=== PATIENT | female | born 1950 | race Caucasian/White ===

== ENCOUNTER 2016-10-02 09:52 | Inpatient (IN) ==
[2016-10-02] MEDS ORDERED: BENADRYL PO PRN (12:17)
[2016-10-02] MEDS ORDERED: ZOFRAN IV PRN (12:19)
[2016-10-02] MEDS ORDERED: NS 2,000 ML ONE (12:40)
[2016-10-02 12:42] LABS: INR 1.05; PROTIME 11.1 Seconds (9.2-11.7)
[2016-10-02 12:44] LABS: HEMATOCRIT 33.7 % (37.0-47.0); MCH 34.6 PG (27-31); MCHC 32.6 g/dL (33-37); MPV 10.6 FL (7.4-10.4); RBC 3.18 XMIL (4.2-5.4)
[2016-10-02] MEDS ORDERED: HEPARIN IV PRN (12:45)
[2016-10-02] MEDS ORDERED: TIGHT: 0.2 ML/HR MISC PRN (12:45)
[2016-10-02] MEDS ORDERED: NS 2,000 ML MISC PRN (12:45)
[2016-10-02 12:47] LABS: HEMOGLOBIN A1C 4.4 % (4.8-6.0)
[2016-10-02 13:20] LABS: CALCIUM 10.1 mg/dL (8.8-10.2); MAGNESIUM 1.8 mg/dL (1.5-2.7); POTASSIUM 3.5 mmol/L (3.5-5.1); TOTAL BILIRUBIN 0.38 mg/dL (0.20-1.00); TOTAL PROTEIN 7.1 g/dL (6.3-8.3)
--- NOTE | 2016-10-02 13:27 | Diag Imaging Result Doc PS360 ---
EXAM: CHEST-PORTABLE HISTORY: dyspnea COMPARISON: 06/15/2016 FINDINGS: There is cardiomegaly similar to the previous exam. There is bilateral lower lung airspace disease with apparent pleural effusions. There is prominence of central vascular markings. There is no pneumothorax identified. There is apparent skin fold artifact over the mid and lower right lung. IMPRESSION: Findings which are suggestive of pulmonary edema/congestive heart failure. Electronically signed by Phong Mcrae 10/02/2016 1:25 PM
[2016-10-02] MEDS ORDERED: SODIUM CHLORIDE 0.9% INJ SCH (14:30)
[2016-10-02] MEDS: REGLAN PO SCH ×2 (14:41→17:26)
[2016-10-02] MEDS: LASIX PO SCH ×2 (14:41→17:16)
[2016-10-02] MEDS: APRESOLINE PO SCH ×2 (14:41→17:19)
[2016-10-02 15:08] LABS: FREE T4 1.17 ng/dL (0.93-1.70)
--- NOTE | 2016-10-02 15:26 | HISTORY AND PHYSICAL ---
PRIMARY CARE PHYSICIAN: Dr. Henderson. CHECKOUT OPERATOR: Dr. Felton. CHIEF COMPLAINT: Weakness. HISTORY OF PRESENT ILLNESS: Mrs. Meade is a 66-year-old female, who has ESRD on hemodialysis followed by Dr. Felton. She also has a history of severe coronary disease and congestive heart failure. She has been having worsening asthenia over the past 6 months. She states that anytime she tries to stand or walk she gets weak. She also report shortness of breath. Shortness of breath is with any type of exertion. She has lower extremity edema and orthopnea. She denies however any chest pain. She has no fever or chills. She is continuing to report multiple episodes of diarrhea a day with occasional vomiting. She has actually had a recent workup of her vomiting and diarrhea by Dr. Bland. She had upper and lower endoscopy which showed nonbleeding cecal AVMs, colonic polyps, extensive diverticulosis, rectal polyps, grade 2 internal hemorrhoids and large external hemorrhoids. Her EGD showed Schatzki's ring, hiatal hernia and multiple gastric AVMs. She has seen Dr. Felton this week and he felt that she needed to come to the hospital for evaluation and possible long-term placement as she lives alone and is having a difficult time caring for herself. She is currently in dialysis resting comfortably without distress noted. She is now going to be admitted for further treatment and evaluation. Addendum: The patient returned from dialysis and had a large maroon colored bowel movement. She is being transferred to the ICU. PAST MEDICAL HISTORY: 1. ESRD and hemodialysis on Thursday, , Thursday. Followed by Dr. Felton. 2. Hypertension. 3. Borderline diabetes mellitus 4. Congestive heart failure with last known EF of 60% in 2015. 5. Severe coronary artery disease. 6. Gastric AVMs 7. Diverticulosis 8. Cecal AVMs 9. Internal and external hemorrhoids 10.Hiatal hernia 11.Multiple colonic polyps 12.Severe protein calorie malnutrition PAST SURGICAL HISTORY: Multiple coronary stents, hernia repair, bilateral tubal ligation, cholecystectomy, appendectomy, polypectomy. SOCIAL HISTORY: Patient lives alone. Her brother does bring her food on occasion. She denies tobacco, alcohol or drug use. FAMILY HISTORY: Noncontributory. REVIEW OF SYSTEMS: Fourteen point review of systems obtained and found to be negative with the exception of the HPI. HOME MEDICATIONS: Reglan 2.5 mg p.o. t.i.d. Peppermint oil 90 mg p.o. t.i.d. Tylenol 1 g every 8 hours as needed. Aspirin 81 mg daily. Plavix 75 mg a.m. Cymbalta 30 mg p.o. daily. Benadryl 25 mg every 4 hours as needed for itching. Lasix 40 mg t.i.d. Apresoline 50 mg t.i.d. Toprol-XL 50 mg p.o. b.i.d. Prilosec 40 mg b.i.d. Multivitamin 1 daily. Zoloft 50 mg at bedtime. Zanaflex 4 mg bedtime. Desyrel 100 mg p.o. at bedtime. ALLERGIES: To adhesives, scopolamine, opioids, methadone and related, oxycodone. PHYSICAL EXAMINATION: VITAL SIGNS: Blood pressure is 156/73, heart rate is 77, respiratory rate is 20 , O2 saturation 90% on 2 L. Temperature is 97.8 degrees. GENERAL: This is a frail 66-year-old female, lying in the hospital bed in no acute distress. NEUROLOGIC: The patient is awake, she is somewhat sleepy but does awaken easily to verbal stimulus. She follows commands without focal deficits. HEENT: Head is atraumatic and normocephalic. Her pupils are equal, round, and reactive to light. Oral mucosa is moist. Trachea is midline. No JVD or carotid bruits. Chest diminished at the bases with bibasilar crackles. CV: Tachy but regular. S1, S2 is noted. 2-3/6 systolic ejection murmur noted. GI: Epigastric tenderness to palpation. Overall belly is soft and nondistended. Bowel sounds are positive. EXTREMITIES: Without edema, clubbing or cyanosis. Pulses are diminished but palpable bilaterally. DIAGNOSTIC DATA: Chest x-ray shows findings suggestive of pulmonary edema and congestive heart failure. Lab work WBC 9, hemoglobin 11, hematocrit 33.7, platelet count 193, 000. PT 11.1, INR 1.05. Sodium 129, potassium 3.5, chloride 90. CO2 is 23, anion gap 16. BUN 33 , creatinine 2.9. Glucose 92. A1c 4.4. Calcium 10.1, magnesium 1.8. Bilirubin 0.38. AST 24, ALT 17, alkaline phosphatase 176. ProBNP 55523. Albumin 4. ASSESSMENT/PLAN: 1. GI bleed. Will make the patient NPO and start her on a protonix drip. Transfer to the ICU. Will consult GI. A stat hemoglobin and hematocrit has been ordered. Will also start an octreotide drip as recommended by . 2. Acute on chronic heart failure exacerbation: We will check an echocardiogram and continue to trend her enzymes. We will continue home medications. We will make sure to optimize her cardiac medications, follow strict I's and O's and daily weights. Volume management per Dr. Felton via dialysis. 3. ESRD on hemodialysis: Orders per Dr. Felton. 4. Diarrhea and abdominal pain: Dr. Bland has been consulted. Stool studies have been ordered and a CT of the abdomen and pelvis is pending. 5. Macrocytic anemia: Check iron studies. We will treat accordingly. 6. Hypertension: Chronic and stable, continue home medications. 7. Coronary disease: We will check her lipid panel, hemoglobin A1c and make sure her cardiac medications are optimized. We will follow telemetry and rule out myocardial infarction with cardiac enzymes. 8.Failure to thrive. Will consult PT once the patient is medically stable. 9. DVT prophylaxis. SCDs Dictated by KULDEEP Perdue for Cee Richter MD cc: KULDEEP Perdue MD The patient was seen and examined by me. I agree with the assessment and plan as dictated. [facility]
[2016-10-02] MEDS: DUONEB (A & A) INH SCH ×2 (16:05→21:20)
--- NOTE | 2016-10-02 16:21 | CONSULTATION ---
DATE OF CONSULTATION: 10/02/2016 REASON FOR ADMISSION: Severe weakness with chronic diarrheal stools. REASON FOR CONSULT: Assistance with end-stage renal disease and medical management. CONSULTING PHYSICIAN: Cee Richter MD HISTORY OF PRESENT ILLNESS: Ms. Meade is a 66-year-old white female, who is known to our outpatient services for hemodialysis on Thursday, , Thursday. Patient has had a history of chronic diarrheal stools for the past 3-4 months, with GI intervention per Dr. Bland. Subsequently, in the last couple weak, she thought that she was doing much better. She does report recently she has continuing multiple episodes of diarrhea daily. She does have nausea that is chronic and occasional vomiting. She has had an upper and lower GI workup which showed nonbleeding cecal AVMs and colonic polyps, with diverticulosis and rectal polyps. She has Grade II internal hemorrhoids and large external hemorrhoids. Her EGD did indicate Schatzki's ring, hiatal hernia, and multiple gastric AVMs. She states that she was too ill to go to her dialysis treatment today. She presented to [facility] Emergency Department for severe weakness. Subsequently, the patient does indicate failure to thrive. She has had much weight loss in the last 3-4 months. She states that she is unable to take care of herself. She has been admitted for further evaluation. She does deny chest pain. No increased work of breathing. She has multiple stages of bruising. She states that she does not necessarily fall , but she falls against things due to her weakness. Denies fever or chills. PAST MEDICAL HISTORY: End-stage renal disease with hemodialysis on Thursday, , Thursday at the [facility], hypertension, borderline diabetes, congestive heart failure with the last ejection fraction of 60% in 2014. She has coronary artery disease, gastric AVMs with gastritis, hemorrhoids, internal and external, along with colonic polyps and diverticulosis. She has anemia of chronic disease and osteodystrophy of chronic disease. PAST SURGICAL HISTORY: Multiple coronary artery stents, hernia repair, bilateral tubal ligation, cholecystectomy, appendectomy, EGD, and colonoscopies, most recently in July,. SOCIAL HISTORY: She does live alone. She has a brother who will bring her food on occasion. She denies any tobacco, alcohol, or illicit drug use. FAMILY HISTORY: Noncontributory. ALLERGIES: Listed as adhesives, scopolamine, opioids, methadone, and related medications, along with oxycodone home. HOME MEDICATIONS: Listed as Reglan, peppermint, Tylenol, aspirin, Plavix, Cymbalta, Benadryl, Lasix, Apresoline, Toprol XL, Prilosec, multivitamin, Zoloft, Zanaflex, and Desyrel. Patient also is on Rocaltrol, Aranesp, Ferrlecit, Protonix, and IV iron as indicated and as patient has tolerated at the outpatient clinic. REVIEW OF SYSTEMS: Times 10 with pertinent positives listed above in the HPI. PHYSICAL EXAMINATION: Vital Signs: Her most recent vital signs are temperature 97.8 degrees, blood pressure 156/73, heart rate 77, respirations are 20. She is on 2 L nasal cannula. Last recorded saturation is 90%. She has had 120 in, she has had 100 out, along with 2 stools. General: This is a 66-year-old, frail white female, who appears chronically ill. She is in no acute distress. Skin: Warm and dry. HEENT: Normocephalic, atraumatic. Conjunctivae pale. She has MICKY. Mucous membranes are dry. Neck: Supple. Trachea midline. No JVD evident. Cardiovascular: She has got a regular rate and rhythm. She has a systolic murmur noted. No gallop. Lungs: She does exhibit some inspiratory and expiratory wheeze, left greater than right. She is on room air. Equal excursion. Abdomen: Soft, nontender. Positive bowel sounds. Genitourinary: Minimal void with dialysis assist. None inspected. Extremities : Without edema. No clubbing or cyanosis. Integumentary: The patient has multiple abrasions and bruises to her upper extremities bilaterally. Her right arm is swollen to the forearm. Otherwise, no rashes or lesions evident. She does have some bruising to the lower extremities. LABS: Sodium 129, potassium 3.5, chloride 90, CO2 23, BUN 33, creatinine 2.9, glucose 92. Anion gap 16, calcium 10.1, magnesium 1.8. Albumin of 4. She has a free T4 of 1.17. White count 9, hemoglobin 11, hematocrit 33.7, with a platelet count of 193,000. She has a ferritin of 1439. Her prothrombin time is 11.1 with an INR of 1.05. Chest x-ray on admission indicates pulmonary edema with congestive heart failure. ASSESSMENT AND PLAN: 1. End-stage renal disease. This is patient's routine dialysis day. We will plan for dialysis. We will place her on a 2K bath. She is to dialyze for 3.5 hours. We will attempt to pull her to her dry weight. 2. Acute on chronic heart failure with fluid volume overload. Again, we will plan for dialysis with assistance with fluid volume. 3. Electrolytes and acid-base balance. 4. Patient has mild hypokalemia with correction on dialysis. 5. Patient has macrocytic anemia. No intervention at this time. 6. Severe weakness. Patient presents with severe weakness with recent falls. Unable to care for herself, indicating failure to thrive. It is noted that physical therapy and delinquency prevention social worker has been consulted. I would to thank you for allowing us to follow with this patient. Seen, data reviewed, discussed with Hiren Fitch on 10/02/16. I agree with the above assessment and plan of care. rg Dictated by KULDEEP Saul for Nash Felton MD cc: KULDEEP Saul MD [facility]
--- NOTE | 2016-10-02 17:04 | EKG Report ---
Test Performed on : 10/02/2016 4:44:52 PM Test Reason : admission Blood Pressure : / mmHG Vent. Rate : 077 BPM Atrial Rate : 077 BPM P-R Int : 166 ms QRS Dur : 104 ms QT Int : 432 ms P-R-T Axes : 049 073 -14 degrees QTc Int : 488 ms Sinus rhythm. with marked sinus arrhythmia. Left ventricular hypertrophy with repolarization abnormality Abnormal ECG When compared with ECG of 15-JUN-2016 08:11, No significant change was found BEST OF SEVERAL ATTEMPTS Confirmed by Franklin Nunez MD ([id number]) on 10/03/2016 3:29:49 PM
[2016-10-02] MEDS ORDERED: PROTONIX IV SCH (19:00)
[2016-10-02 19:07] LABS: HEMATOCRIT 33.3 % (37.0-47.0); HEMOGLOBIN 10.8 g/dL (12.0-16.0)
[2016-10-02] MEDS: SANDOSTATIN 500 MICROGM in D5W 100 ML IV SCH (20:46)
[2016-10-02] MEDS: ZOLOFT PO SCH (20:46)
[2016-10-02] MEDS: ZANAFLEX PO SCH (20:46)
[2016-10-02] MEDS: PROTONIX 80 MG in NS 80 ML IV SCH (20:46)
[2016-10-02] MEDS: DESYREL PO SCH (20:46)
[2016-10-02] MEDS: TOPROL XL PO SCH (20:47)
[2016-10-02] MEDS: TYLENOL PO PRN (20:55)
[2016-10-02] MEDS ORDERED: HEPARIN SUBQ SCH (21:00)
[2016-10-02] MEDS ORDERED: PRILOSEC PO SCH (21:00)
[2016-10-03] MEDS: DUONEB (A & A) INH SCH ×4 (03:30→22:38)
[2016-10-03 04:39] LABS: ALLEN TEST YES; BE 5.8 mmoll (-3.0-3.0); BLOOD TYPE ARTERIAL; DRAW SITE L RADIAL; METHB 0.8 % (0.0-1.5); MODALITY VENTIMASK; O2(CT) 13.7 mL/dL (15.0-23.0); PCO2(98.6) 51 mmHg (35-45); PO2(98.6) 78 mmHg (60-100); SAMPLE BLOOD; SAO2 95.9 % (95.0-100.0); THB 10.3 g/dL (11.5-17.4)
[2016-10-03] MEDS: SANDOSTATIN 500 MICROGM in D5W 100 ML IV SCH ×3 (04:44→23:55)
[2016-10-03] MEDS: PROTONIX 80 MG in NS 80 ML IV SCH ×2 (04:44→15:41)
--- NOTE | 2016-10-03 04:52 | CONSULTATION ---
DATE OF CONSULTATION: 10/02/2016 REFERRING PHYSICIAN: Cee Richter M.D. PRIMARY CARE PHYSICIAN: Karie Henderson M.D. PRIMARY MANAGER REPORTING: Nash Felton M.D. HISTORY OF PRESENT ILLNESS: The patient is a 66-year-old white female with end- stage renal disease who is followed by Dr. Felton. She has severe coronary artery disease with congestive heart failure and hypertension. From a GI perspective, she was evaluated in July 2015 for evaluation of failure to thrive and chronic diarrhea. On EGD, she was noted to have gastritis with gastric AVMs, hiatal hernia, but it was otherwise unremarkable. On colonoscopy, she was found to have nonbleeding cecal AVMs, colon polyps, diverticulosis, rectal polyps, internal hemorrhoids and external hemorrhoids. Other findings, also on EGD include a Schatzki's ring and a hiatal hernia with multiple gastric AVMs. She presented to the hospital this admission for failure to thrive, stating that she just felt fatigued and was not sure what to do. While on the floor, she had multiple maroon-colored stools. Upon further questioning, the patient states that the maroon-colored stools associated with epigastric discomfort began approximately 2-3 weeks ago. She did not mention it because she was afraid to worry me or the office staff. Because of her hematochezia, we are asked to participate in her care. On ROS, she notes shortness of breath. PAST MEDICAL HISTORY: 1. End-stage renal disease requiring hemodialysis on Thursday, , Thursday. 2. Hypertension. 3. Diabetes mellitus. 4. Congestive heart failure. 5. Severe coronary artery disease. 6. Gastric AVMs. 7. Diverticulosis. 8. Cecal AVMs. 9. Internal hemorrhoids. 10. External hemorrhoids. 11. Hiatal hernia. 12. Multiple colon polyps. 13. Severe protein calorie malnutrition. PAST SURGICAL HISTORY: 1. Multiple coronary stents. 2. Hypertension. 3. Bilateral tubal ligation. 4. Cholecystectomy. 5. Appendectomy. 6. Polypectomy on colonoscopy. SOCIAL HISTORY: The patient lives alone. Her brother does help participate in her care. She denies alcohol, tobacco or recreational drug use. FAMILY HISTORY: Negative for gastric and colon cancer. MEDICATION ALLERGIES: 1. Adhesives. 2. Scopolamine. 3. Opioids. 4. Methadone. 5. Methadone-related substances. 6. Oxycodone. EXAMINATION: Vital Signs: On exam, she is in no acute distress. Her blood pressure is 142/70. Pulse of 88, respiration 29, temp of 99.9 degrees. General: She is somewhat sleepy but easily arousable. HEENT: Her pupils are reactive and round. Her trachea is midline. Chest: Clear anteriorly with decreased breath sounds posteriorly. Cardiovascular: Reveals regular rate and rhythm with a possible 1-2/6 systolic murmur. She did have epigastric pain but no other upper GI symptoms. OBJECTIVE DATA: Reveals hemoglobin of 10.8 with hematocrit of 33.3, and a white count of 9.0. She has 193,000 platelets. Her PT is 11.1 with an INR of 1.05. PTT is 129, phosphorus 3.5, chloride 90, CO2 23, BUN 33, creatinine 2.9 with a glucose of 92. Calcium is 10.1, total bilirubin is 0.38, AST 24, ALT 17, alkaline phosphatase 176, creatine kinase 36 , Troponin of 0.085. BMP greater than 35,000, total protein 7.1, albumin 4.0 with a folic acid of 2.6 and total protein 1.17. IMPRESSION: 1. Hematochezia. 2. Failure to thrive. 3. Dyspnea. RECOMMENDATION: 1. In light of the patient's hematochezia, failure to thrive, nausea and epigastric pain, we will perform an EGD when she is stable to assess for an upper GI bleed. 2. She has some areas of concern in her colon based on the previous exam. However, I think it is important for her to improve her strength and breathing before scheduling a colonoscopy. I am doubtful that she will tolerate a bowel prep now. 3. Continue Protonix drip. 4. Continue octreotide drip. 5. Continue octreotide drip until such time that we are able to determined that her gastric and duodenum varices are not bleeding. 6. Additional recommendations to follow based on her clinical course. cc: MD Cee Reinoso MD Bhavna Gowda, MD Reginald D. Gladish, MD MTDD
[2016-10-03 05:29] LABS: HEMATOCRIT 30.9 % (37.0-47.0); HEMOGLOBIN 9.8 g/dL (12.0-16.0); MCH 34.6 PG (27-31); MCHC 31.7 g/dL (33-37); MCV 109.2 FL (81-99); MPV 11.3 FL (7.4-10.4); RBC 2.83 XMIL (4.2-5.4)
[2016-10-03 05:49] LABS: AGAP 14; ALBUMIN 3.6 g/dL (3.5-5.0); BUN 21 mg/dL (8-22); CALCIUM 8.9 mg/dL (8.8-10.2); CHLORIDE 96 mmol/L (98-107); COSMO 278; HDL 54 mg/dL (45-65); LDL 94 mg/dL; POTASSIUM 3.7 mmol/L (3.5-5.1); SODIUM 137 mmol/L (136-145); TCO2 27 mmol/L (25-35); TRIGLYCERIDES 144 mg/dL (35-135); VLDL 29 mg/dL
--- NOTE | 2016-10-03 07:13 | Diag Imaging Result Doc PS360 ---
CHEST-PORTABLE - 10/03/2016 INDICATION: dyspnea TECHNIQUE: COMPARISON: 10/02/2016 FINDINGS: Stable cardiomegaly. There is slight worsening in the central mixed airspace opacities bilaterally compatible with pulmonary edema. Stable small pleural effusions. IMPRESSION: Perhaps slight worsening in the pulmonary edema. Electronically signed by Hima Addison 10/03/2016 7:11 AM
[2016-10-03] MEDS ORDERED: MYLICON DROPS (DOSE) ONE (07:39)
[2016-10-03] MEDS: LASIX PO SCH ×3 (08:47→17:15)
[2016-10-03] MEDS: TOPROL XL PO SCH ×2 (08:47→20:14)
[2016-10-03] MEDS: THERA M PLUS PO SCH (08:47)
[2016-10-03] MEDS: REGLAN PO SCH ×3 (08:47→17:15)
[2016-10-03] MEDS: CYMBALTA PO SCH (08:47)
[2016-10-03] MEDS ORDERED: ASPIRIN PO SCH (09:00)
[2016-10-03] MEDS ORDERED: PLAVIX PO SCH (09:00)
--- NOTE | 2016-10-03 09:41 | Diag Imaging Result Doc PS360 ---
EXAM: THORAX/ABDOMEN/PELVIS W/O CONT HISTORY: diarrhea/dyspnea TECHNIQUE: CT of the chest without contrast and with radiation dose reduction (clarity.) COMMENT: There are large bilateral pleural effusions. The right effusion is slightly larger than the left. There is compressive atelectasis in both lower lobes. There is emphysematous change particularly in the upper lung zones bilaterally. The possibility of pneumonia cannot be excluded. The right middle lobe is entirely atelectatic. There is dense calcification in the thoracic aorta. No evidence of aortic dilatation is present. There is extensive coronary atherosclerotic calcification. The left ventricle appears to be enlarged. There are some prominent prevascular and paratracheal nodes in the mediastinum. Some of these exceed 13 mm in diameter. There is a catheter in the lower thoracic epidural space on the right. There is multilevel facet arthropathy largely present on the right side in the upper thoracic spine and spondylotic changes are seen elsewhere. CT urogram without contrast: There is extensive arterial calcification throughout the abdomen. The infrarenal abdominal aorta is distended to a maximum AP diameter of 3 cm. There is generalized subcutaneous edema consistent with anasarca. There is considerable beam hardening artifact in the left side of the pelvis due to the presence of a pump attached to the epidural catheter. No evidence of bowel obstruction is present. Possibility of nephrolithiasis cannot be entirely excluded, however the numerous calcifications seen in both kidneys are probably arterial. No evidence of hydronephrosis or mass is present. Some edema in the presacral fat is present which may be a reflection of the generalized anasarca. No significant free fluid is present. There is diverticulosis in the sigmoid colon. There are severe spondylotic changes in the lumbar spine particularly at L1-2 and L2-3. IMPRESSION: Anasarca. Extensive atherosclerotic calcification as described. Large bilateral pleural effusions with compressive atelectasis. Diverticulosis Coli. Electronically signed by Angelo Ford 10/03/2016 9:38 AM
[2016-10-03] MEDS: APRESOLINE PO SCH ×3 (10:30→17:17)
[2016-10-03] MEDS ORDERED: HEPARIN IV PRN (11:08)
[2016-10-03] MEDS ORDERED: NS 2,000 ML MISC PRN (11:08)
[2016-10-03] MEDS ORDERED: TIGHT: 0.2 ML/HR MISC PRN (11:08)
--- NOTE | 2016-10-03 12:39 | Diag Imaging Result Doc PS360 ---
CHEST-2 VIEWS - 10/03/2016 INDICATION: POST THORACENTESIS INSPIRATION/EXPIRATION TECHNIQUE: COMPARISON: Earlier 10/03/2016 FINDINGS: There is significant improvement in the bilateral pleural effusions. The lungs are well expanded with no evidence of pneumothorax. There is persistent significant cardiomegaly. There is probably some mild interstitial pulmonary edema centrally but this has improved. IMPRESSION: No evidence of complication. Significant improvement from prior. Electronically signed by Hima Addison 10/03/2016 12:36 PM
--- NOTE | 2016-10-03 12:40 | Diag Imaging Result Doc PS360 ---
THORACENTESIS W/IMAGE GUIDANCE - 10/03/2016 INDICATION: therapeutic thoracentesis TECHNIQUE: COMPARISON: Chest CT 10/02/2016 FINDINGS: Bilateral thoracentesis was performed. 1.4 L was removed from the right side. 900 mL was removed from the left side. IMPRESSION: Successful bilateral ultrasound-guided thoracentesis. Electronically signed by Hima Addison 10/03/2016 12:37 PM
[2016-10-03 13:38] LABS: SPECIMEN PLEURAL FLUID
[2016-10-03 13:39] LABS: DIFF NEEDED? YES; WBC BF 108 /cumm
[2016-10-03 13:55] LABS: MONOS 87 %; POLYS 13 %
[2016-10-03 14:23] LABS: TOTAL PROT BODY FLUID < 0.2 g/dL
--- NOTE | 2016-10-03 14:26 | PROGRESS NOTE ---
DATE: 10/03/2016 SUBJECTIVE: She was moved to the ICU after dialysis yesterday because she passed maroon stool. She has also had some hypoxemia and has been using a closed face mask. OBJECTIVE: Vital Signs: Blood pressure 144/66, heart rate 70, respirations 15, afebrile. Intake: 1 L. Output: 500 mL. PHYSICAL EXAMINATION: No acute distress. Skin is warm and dry. Conjunctivae are pink. Neck veins were distended. Heart: Regular without crackles. Abdomen is soft and nontender. Bowel sounds are present. Extremities have 1+ edema. LABORATORY DATA: Sodium 137, potassium 3.7, chloride 96, bicarbonate 27. BUN 21, creatinine 2.4. Hemoglobin 9.8. IMPRESSION: 1. Respiratory: Increased work of breathing with abnormal chest x-ray. She has a planned thoracentesis today, and she is comfortable on her current oxygen settings with 35% FiO2. She also has a planned endoscopy. Because her days are already busy and her respiratory status is acceptable, we will hold dialysis until tomorrow. 2. Anemia. Esophagogastroduodenoscopy today. 3. Electrolytes/acid base in target. cc: Nash Felton MD
--- NOTE | 2016-10-03 14:29 | PROGRESS NOTE ---
DATE: 10/03/2016 SUBJECTIVE: The patient is resting comfortably on a Ventimask. No further episodes of bleeding noted overnight. OBJECTIVE: Vital Signs: Temperature 97.8 degrees, blood pressure 144/66, heart rate 70, respirations 15, O2 saturations 96% on the Ventimask. General: This is a chronically ill- appearing, elderly female, lying in bed, in no acute distress. Head: Normocephalic atraumatic. Heart: S1, S2. Normal. Regular rate and rhythm. Lungs: Equal air entry bilaterally, diminished breath sounds at the bases. No crackles. No rales. Abdomen: Positive bowel sounds. Soft, nontender, nondistended. Extremities: 2+ edema. Neuro: The patient is alert and oriented x3. LABS: White blood cell count 7, hemoglobin 9.8, hematocrit 30, platelets 185, 000. ABG: PH of 7.4, pCO2 51, PO2 78, bicarb 29. O2 sat 95% on a Ventimask. Sodium 137, potassium 3.7, chloride 96, CO2 27, BUN 21, creatinine 2.4. Glucose 119. Calcium 8.9, phosphorus 3.6, albumin 3.6, triglycerides 144. CT of the chest, abdomen, and pelvis shows anasarca. Large bilateral pleural effusions with compressive atelectasis. ASSESSMENT AND PLAN: 1. Acute hypoxemic respiratory failure secondary to volume overload and bilateral pleural effusions. An ultrasound-guided thoracentesis has been ordered to be done today. Will defer to Dr. Felton regarding volume management. 2. Volume overload. This will be managed with dialysis. 3. Gastrointestinal bleed. The patient is scheduled to undergo endoscopy today. Continue on octreotide and protonix drips. 4. End-stage renal disease. Management as per the hot tar roofer. 5. Hypertension. Controlled. 6. Anemia. The patient's hemoglobin and hematocrit are low but stable. 7. Severe coronary artery disease. Aware. 8. Chronic diarrhea. Stool studies have been sent. 9. Deep vein thrombosis prophylaxis. Continue with SCDs. The plan of care was discussed with the patient and her brother at the bedside. cc: Cee Richter MD MTDD
--- NOTE | 2016-10-03 17:06 | PROGRESS NOTE ---
DATE: 10/03/2016 SUBJECTIVE: The patient had increasing difficulty with shortness of breath today and is status post bilateral thoracentesis. Because of this, her EGD to evaluate her maroon stools, epigastric pain and nausea has been placed on hold. We will place the patient on the schedule for Thursday at 8 a.m. to reassess her bleeding as she has a known history of peptic ulcer disease and gastric AVMs. Over the weekend, please continue Protonix and octreotide drip. Dr. Keven Christie is numerical control router operator in the event that she has bleeding. cc: MD Cee Reinoso MD Bhavna Gowda, MD Reginald D. Gladish, MD
--- NOTE | 2016-10-03 17:43 | ECHO REPORT ---
ORDER DATE: 10/02/2016 ECHOCARDIOGRAM: MEASUREMENTS: Left ventricular end-diastolic diameter 5.4, end systolic diameter 4.2, posterior wall thickness 1.0, septal thickness 1.0, left atrium 3.9, aortic root 2.9. SUMMARY: 1. Fair quality study. 2. Moderate fibrocalcific changes of 3 leaflet aortic valve demonstrated with reduced aortic valve leaflet mobility. Peak instantaneous gradient across the aortic valve is 20-25 mmHg. The mean gradient is 12 mmHg. The calculated aortic valve area by Doppler is 1.7 cm2 suggesting mild aortic stenosis. There is mild aortic regurgitation. Right mitral tricuspid and pulmonic valves are without structural abnormality with moderate mitral regurgitation which is somewhat posteriorly directed. There is mild tricuspid regurgitation and mild pulmonic insufficiency. The estimated systolic PA pressure by Doppler is 50 mmHg. The aortic root is normal size. 3. Normal left ventricular dimensions suggested. Estimated left ventricular ejection fraction appears to be approximately 50%. No focal wall motion abnormalities can be appreciated. Left atrium is mildly enlarged. Right atrium and right ventricle are normal size with normal right ventricular systolic function. 4. No pericardial effusion. 5. Left pleural effusion. 6. Appearance of inferior vena cava suggests mild elevation central venous pressure. CONCLUSION: 1. Mild aortic stenosis with mild aortic regurgitation. 2. Moderate mitral regurgitation. 3. Mild tricuspid regurgitation with moderate pulmonary hypertension by Doppler. 4. Estimated left ventricular ejection fraction of at least 50%. 5. Mild left atrial enlargement. 6. Moderate pulmonary hypertension by Doppler. 7. Mild elevation of central venous pressure is suggested. cc: MD Albin Mcneal CRNP
[2016-10-03] MEDS: TYLENOL PO PRN (19:22)
[2016-10-03] MEDS: DESYREL PO SCH (20:14)
[2016-10-03] MEDS: ZANAFLEX PO SCH (20:14)
[2016-10-03] MEDS: ZOLOFT PO SCH (20:15)
[2016-10-03] MEDS ORDERED: NS 500 ML IV ONE (22:47)
[2016-10-03] MEDS ORDERED: NS 250 ML ONE (22:49)
[2016-10-04] MEDS: SANDOSTATIN 500 MICROGM in D5W 100 ML IV SCH ×3 (01:17→21:03)
[2016-10-04] MEDS: PROTONIX 80 MG in NS 80 ML IV SCH ×3 (02:37→21:03)
[2016-10-04] MEDS: DUONEB (A & A) INH SCH ×4 (03:28→22:43)
[2016-10-04 04:32] LABS: ALLEN TEST YES; BE 0.9 mmoll (-3.0-3.0); BLOOD TYPE ARTERIAL; DRAW SITE R RADIAL; METHB 0.7 % (0.0-1.5); O2(CT) 14.1 mL/dL (15.0-23.0); PO2(98.6) 191 mmHg (60-100); SAMPLE BLOOD; SAO2 97.8 % (95.0-100.0); THB 10.1 g/dL (11.5-17.4); pH(98.6) 7.33 (7.35-7.45)
[2016-10-04 04:35] LABS: MODALITY CANNULA; PCO2(98.6) 52 mmHg (35-45)
[2016-10-04 04:47] LABS: HEMATOCRIT 30.8 % (37.0-47.0); HEMOGLOBIN 9.9 g/dL (12.0-16.0); MCH 34.7 PG (27-31); MCHC 32.1 g/dL (33-37); MCV 108.1 FL (81-99); MPV 11.3 FL (7.4-10.4); RBC 2.85 XMIL (4.2-5.4)
[2016-10-04 05:21] LABS: ALBUMIN 2.9 g/dL (3.5-5.0); CALCIUM 8.8 mg/dL (8.8-10.2)
--- NOTE | 2016-10-04 07:12 | Diag Imaging Result Doc PS360 ---
EXAM: CHEST-PORTABLE HISTORY: dyspnea TECHNIQUE: AP portable at 0500 COMMENT: There continues to be cardiomegaly. There are bilateral pleural effusions which were not evident at the time the previous study of 10/03/2016. There is some atelectasis or pneumonia in both lower lobes. This was also not present previously. Possibility of pulmonary edema cannot be excluded. IMPRESSION: New pleural effusions and basilar opacities. Electronically signed by Angelo Ford 10/04/2016 7:10 AM
[2016-10-04] MEDS: REGLAN PO SCH ×3 (08:07→17:10)
[2016-10-04] MEDS: TOPROL XL PO SCH ×2 (08:07→21:02)
[2016-10-04] MEDS: THERA M PLUS PO SCH (08:07)
[2016-10-04] MEDS: LASIX PO SCH ×3 (08:07→17:11)
[2016-10-04] MEDS: CYMBALTA PO SCH (08:08)
[2016-10-04] MEDS: APRESOLINE PO SCH ×3 (08:11→17:10)
[2016-10-04] MEDS ORDERED: HEPARIN ONE (09:34)
[2016-10-04] MEDS ORDERED: NS 2,000 ML ONE (09:34)
[2016-10-04] MEDS: TYLENOL PO PRN (15:22)
--- NOTE | 2016-10-04 15:24 | PROGRESS NOTE ---
DATE: 10/04/2016 SUBJECTIVE: The patient is sitting up in bed, eating breakfast. She states that she feels a lot better since she had thoracentesis yesterday. No acute events noted overnight. OBJECTIVE: Vital Signs: Temperature 98.2 degrees, blood pressure 133/53, heart rate 64, respirations 15, O2 saturations 96% on 3 L nasal cannula. General: This is a chronically ill- appearing, elderly female, lying in bed, in no acute distress. Head: Normocephalic, atraumatic. Heart: S1, S2 normal. Regular rate and rhythm. Lungs: Equal air entry bilaterally. No wheezing. No rales. No rhonchi. Abdomen: Positive bowel sounds. Soft, nontender, nondistended. Extremities: Trace pedal edema. No cyanosis. No calf tenderness. Neurologic: The patient is alert and oriented x3. LABORATORY DATA: White blood cell count 9, hemoglobin 9.9, hematocrit 30, platelets 183,000. Sodium 135, potassium 4, chloride 97, CO2 is 24. BUN 34, creatinine 3.3, glucose 102. Phosphorus 5.1, albumin 2.9. ASSESSMENT AND PLAN: 1. Acute hypoxemic respiratory failure secondary to volume overload with bilateral pleural effusions. Improved. The patient is now on nasal cannula. She is scheduled to undergo dialysis today. 2. Volume overload. The patient is scheduled to undergo dialysis today. 3. End-stage renal disease. Management as per the [facility]. 4. Gastrointestinal bleed. The patient is scheduled to undergo endoscopy on Thursday. Continue on octreotide and Protonix drips. 5. Hypertension. Controlled. 6. Severe coronary artery disease, aware. We will restart the patient's p.o. medications. 7. Chronic diarrhea. The stool studies have been unremarkable. We will await the results of endoscopy. 8. Deep vein thrombosis prophylaxis. Continue with sequential compression devices. The plan of care was discussed with the patient and her brother at the bedside. cc: Cee Richter MD MTDD
--- NOTE | 2016-10-04 17:26 | PROGRESS NOTE ---
DATE: 10/04/2016 SUBJECTIVE: No more nausea, vomiting or bloody stool. She had endoscopy. Still some shortness of breath. OBJECTIVE: Vital Signs: Blood pressure 134/66, heart rate 68, respirations 22, afebrile. General: She is chronically ill, thin, no distress. Skin: Warm and dry. Conjunctivae are pink. Neck: Neck veins are not visible. Heart: Regular with a gallop. Lungs: Equal breath sounds. Shallow no crackles. Abdomen: Soft, nontender. Bowel sounds are present. Extremities: Have trace edema. No clubbing or cyanosis. LABORATORY DATA: Sodium 135, potassium 4.0, chloride 97, bicarbonate 24, BUN 34, creatinine 3.3. Hemoglobin 9.9. IMPRESSION: 1. End-stage kidney disease. She had her routine dialysis today. Some improvement in her symptoms. 2. Anemia. Hemoglobin is stable. 3. Malnutrition/debilitation. Working on rehabilitation. cc: Nash Felton MD
[2016-10-04] MEDS: DESYREL PO SCH (21:02)
[2016-10-04] MEDS: ZANAFLEX PO SCH (21:02)
[2016-10-05] MEDS: DUONEB (A & A) INH SCH ×4 (03:54→21:21)
[2016-10-05 05:40] LABS: HEMATOCRIT 29.5 % (37.0-47.0); HEMOGLOBIN 9.2 g/dL (12.0-16.0); MCH 33.9 PG (27-31); MCHC 31.2 g/dL (33-37); MCV 108.9 FL (81-99); MPV 10.9 FL (7.4-10.4); RBC 2.71 XMIL (4.2-5.4)
[2016-10-05 06:04] LABS: ALBUMIN 2.8 g/dL (3.5-5.0); CALCIUM 8.4 mg/dL (8.8-10.2); POTASSIUM 3.5 mmol/L (3.5-5.1)
[2016-10-05] MEDS: ZOLOFT PO SCH ×3 (07:20→20:57)
[2016-10-05] MEDS: CYMBALTA PO SCH (08:35)
[2016-10-05] MEDS: LASIX PO SCH ×3 (08:35→17:15)
[2016-10-05] MEDS: THERA M PLUS PO SCH (08:35)
[2016-10-05] MEDS: TOPROL XL PO SCH ×2 (08:35→20:57)
[2016-10-05] MEDS: REGLAN PO SCH ×3 (08:35→17:15)
[2016-10-05] MEDS: SANDOSTATIN 500 MICROGM in D5W 100 ML IV SCH ×2 (08:57→17:16)
[2016-10-05] MEDS: PROTONIX 80 MG in NS 80 ML IV SCH ×2 (08:57→17:20)
[2016-10-05] MEDS: APRESOLINE PO SCH ×3 (14:18→17:15)
--- NOTE | 2016-10-05 16:27 | PROGRESS NOTE ---
DATE: 10/05/2016 SUBJECTIVE: The patient is sitting up in bed, eating breakfast She states that she feels good. The patient has no complaints at this time. She is still having maroon-colored stools. OBJECTIVE: Vital Signs: Temperature 98.3 degrees, blood pressure 119/47, heart rate 74, respirations 19, O2 saturations 98% on 3 L nasal cannula. General: This is a chronically ill- appearing, elderly female, lying in bed. Psych: In no acute distress. HEENT: Normocephalic. Atraumatic. Heart: S1, S2. Normal. Regular rate and rhythm. Lungs: Clear to auscultation bilaterally. No crackles. No rales. Abdomen: Positive bowel sounds. Soft, nontender, nondistended. Extremities: No edema. No cyanosis. No calf tenderness. Neurologic: The patient is alert and oriented x3. LABS: CBC: White blood cell count 7.2, hemoglobin 9.2, hematocrit 29, platelets 146,000. Chem: Sodium 134, potassium 3.5, chloride 94, CO2 25, BUN 22, creatinine 2.4, glucose 110, calcium 8.4, phosphorus 4.2, albumin 2.8. ASSESSMENT AND PLAN: 1. GI bleed. The patient is scheduled to undergo endoscopy tomorrow. Continue on the Protonix and octreotide drips. 2. Bilateral pleural effusions. Improved status post bilateral thoracentesis. Stable. 3. Volume overload. Improved. This is being managed via the patient's dialysis sessions. 4. 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 5. Severe coronary artery disease. Continue on the current cardiac medications. 6. Severe protein calorie malnutrition. The patient is currently on a clear liquid diet. The patient's diet will be advanced after she has undergone endoscopy. 7. Severe debility. PT will be consulted tomorrow. 8. Anemia. The patient's hemoglobin and hematocrit is stable. 9. Deep vein thrombosis prophylaxis. Continue with SCDs. cc: Cee Richter MD MTDD
[2016-10-05] MEDS: PROTONIX IV SCH (17:19)
[2016-10-05] MEDS: SODIUM CHLORIDE 0.9% INJ SCH (17:20)
--- NOTE | 2016-10-05 18:40 | PROGRESS NOTE ---
DATE: 10/05/2016 SUBJECTIVE: Ms. Meade is resting comfortably in ICU. Nurse reports me that she has had some dark stool but no bright red blood per rectum. Has not had any melena. She is tolerating liquid diet. Has not had any nausea vomiting. Denies any abdominal pain. She is complaining about clear liquid diet and wants to advance the diet. OBJECTIVE: Vitals today temperature 98 degrees, pulse was 70, breathing 16, blood pressure 111/43. Abdomen is otherwise full, soft, nontender. Bowel sounds audible. LABS: Reviewed which showed WBC of 7.28, hemoglobin today is 9.2, hematocrit 29.5. BUN is 22, creatinine 2.4. IMPRESSION: Gastrointestinal bleed. She has had some old blood per rectum but her hemoglobin and hematocrit has been fairly stable. The slight drop can be attributed to her hydration and dilution from it. She has been tolerating her liquid diet. At this point, no new suggestion except to continue IV fluid and octreotide as recommended by Dr. Bland and she will be available again tomorrow to resume care. I will be available if there is any need for urgent interventions. cc: Keven Christie MD
[2016-10-05] MEDS: DESYREL PO SCH (20:57)
[2016-10-05] MEDS: ZANAFLEX PO SCH (20:57)
[2016-10-06] MEDS: DUONEB (A & A) INH SCH ×4 (03:22→21:25)
[2016-10-06] MEDS: SANDOSTATIN 500 MICROGM in D5W 100 ML IV SCH ×2 (03:44→14:55)
[2016-10-06 05:28] LABS: HEMATOCRIT 31.2 % (37.0-47.0); MCH 35.1 PG (27-31); MCHC 32.1 g/dL (33-37); MCV 109.5 FL (81-99); MPV 11.3 FL (7.4-10.4); RBC 2.85 XMIL (4.2-5.4)
[2016-10-06 05:46] LABS: POTASSIUM 3.6 mmol/L (3.5-5.1)
[2016-10-06] MEDS: PROTONIX IV SCH ×2 (07:19→17:30)
[2016-10-06] MEDS: SODIUM CHLORIDE 0.9% INJ SCH ×2 (07:19→16:51)
--- NOTE | 2016-10-06 07:23 | Diag Imaging Result Doc PS360 ---
CHEST-PORTABLE - 10/06/2016 INDICATION: dyspnea TECHNIQUE: COMPARISON: 10/04/2016 FINDINGS: There is worsening in the diffuse bilateral mixed infiltrates. Stable significant cardiomegaly and pulmonary vascular congestion. There are small pleural effusions. IMPRESSION: Worsening in the pulmonary edema. Electronically signed by Hima Addison 10/06/2016 7:21 AM
[2016-10-06] MEDS ORDERED: DIPRIVAN 1% ONE (09:15)
[2016-10-06] MEDS: TOPROL XL PO SCH ×2 (09:41→20:14)
[2016-10-06] MEDS: REGLAN PO SCH ×3 (09:48→16:51)
[2016-10-06] MEDS: THERA M PLUS PO SCH (09:48)
[2016-10-06] MEDS: CYMBALTA PO SCH (09:48)
[2016-10-06] MEDS: APRESOLINE PO SCH ×3 (09:49→16:51)
[2016-10-06] MEDS: LASIX PO SCH ×3 (09:49→16:51)
--- NOTE | 2016-10-06 09:59 | PROGRESS NOTE ---
DATE: 10/06/2016 SUBJECTIVE: Patient is status post EGD. She stated that they did find an ulcer. She has no complaints currently. OBJECTIVE: Vital Signs: Temperature 97.8 degrees, pulse 64, respiratory rate 19, blood pressure 144/59, intake 2.6 L. Output none. PHYSICAL EXAMINATION: General: This is a chronically ill-appearing elderly female, resting in bed. She is awake, alert, no acute distress. HEENT: Normocephalic, atraumatic. Right pupil is slightly larger than left. EOMI. Conjunctivae pink. Her oral mucosa is moist. Neck: Supple. No JVD. Cardiovascular: Regular rate and rhythm. Gallop noted. Pulmonary: Equal excursion. She is clear bilaterally. She has no increased work of breathing on room air. Abdomen: Soft with positive bowel sounds. Nontender. : Not inspected. Extremities: She has trace pretibial edema. No clubbing or cyanosis. She is moving all extremities without difficulty. Integumentary: Skin is warm and dry. LAB DATA: WBC of 9.0, hemoglobin 10.0, sodium 133, potassium 3.6, chloride 94, CO2 22, BUN 38, creatinine 3.2. Phosphorus 5.0, calcium 9.0, albumin 3.0. ASSESSMENT AND PLAN: 1. End-stage renal disease management. She is following a Thursday, , Thursday schedule. We will plan to dialyze her tomorrow as her usual prescription. 2. Electrolytes, acid-base balance, anemia. These are stable. 3. Fluid volume. She is not overloaded. 4. Hypertension controlled. 5. Malnutrition and debilitation. Follow with primary. Working with rehabilitation. Seen, data reviewed, discussed with Xi Dodd on 10/06/16. I agree with the above assessment and plan of care. rg Dictated by KULDEEP Kessler for Nash Felton MD cc: Nash Felton MD [facility]
[2016-10-06] MEDS ORDERED: 1/2 NS 500 ML ONE (10:16)
[2016-10-06] MEDS ORDERED: XYLOCAINE-MPF 2% ONE (10:16)
--- NOTE | 2016-10-06 11:22 | PROGRESS NOTE ---
DATE: 10/06/2016 SUBJECTIVE: There are no focal complaints. No more bleeding. OBJECTIVE: Vital Signs: Blood pressure 144/59, heart rate 67, respiratory rate 21, temperature 97.8 degrees, 97% on 5 L. Cardiovascular: Regular rate and rhythm. Pulmonary: Diminished at the bases. GI: Soft, nontender, nondistended. Bowel sounds are positive. Skin: She has numerous ecchymoses along her skin. Laboratory Data: Creatinine 3.2. Hemoglobin and hematocrit 10 and 30, white count of 9, platelets 153,000. BNP shows worsening interstitial infiltrates. ASSESSMENT AND PLAN: 1. Volume overload, pulmonary edema. We will continue dialyzing. This is per primary pulmonary team. 2. Gastrointestinal bleed. She is status post EGD today which showed gastritis and gastric ulcers. Recommendations per gastroenterology. We will continue proton pump inhibitor and octreotide drip for another 24 hours. 3. Coronary artery disease, appears to be stable. 4. Severe protein-calorie malnutrition. She is on a clear liquid diet. We will advance per gastroenterology's recommendations. 5. Bilateral pleural effusions, status post thoracentesis. We will continue to monitor. Repeat chest x-ray tomorrow. 6. Disposition. She may end up needing some sort of rehab. We will progress with some physical therapy and getting up in bed. She still has a fairly high oxygen requirement. Monitor in the unit at least 1 more day. cc: Denzel Toscano MD
[2016-10-06] MEDS: CARAFATE LIQUID PO SCH ×2 (14:55→19:45)
[2016-10-06] MEDS: ZOLOFT PO SCH (20:14)
[2016-10-06] MEDS: DESYREL PO SCH (20:14)
[2016-10-06] MEDS: ZANAFLEX PO SCH (20:14)
[2016-10-07] MEDS: SANDOSTATIN 500 MICROGM in D5W 100 ML IV SCH ×3 (00:15→20:07)
[2016-10-07] MEDS: CARAFATE LIQUID PO SCH ×4 (02:44→20:04)
[2016-10-07] MEDS: DUONEB (A & A) INH SCH ×4 (03:55→22:53)
[2016-10-07] MEDS: PROTONIX IV SCH ×2 (05:28→17:17)
[2016-10-07] MEDS: SODIUM CHLORIDE 0.9% INJ SCH ×2 (05:28→17:17)
--- NOTE | 2016-10-07 05:37 | OPERATIVE NOTE ---
PROCEDURE DATE: 10/06/2016 REFERRING PHYSICIAN: Denzel Toscano M.D. PRIMARY CARE PROVIDER: Karie Henderson M.D. PRIMARY PLASTIC FRAME INSERTER: Nash Felton M.D. INDICATION FOR PROCEDURE: 1. Anemia. 2. Melena. 3. Hematochezia. PROCEDURE PERFORMED: Esophagogastroduodenoscopy. CONSENT: Informed consent was obtained from the patient prior to the procedure. The risks, benefits, and alternatives were discussed. MEDICATION: The patient received monitored anesthesia care. PERFORMING PHYSICIAN: Rosa Maria Bland M.D. ASSISTANTS: 1. ST. [facility] 2. Eliot Mattson RN. 3. Amy Ying CRNA. 4. Leo Herr M.D. (anesthesia). COMPLICATIONS: There were no complications. ESTIMATED BLOOD LOSS: None. SPECIMENS REMOVED: None. FINDINGS: After sedation was achieved, the upper endoscope was inserted to the 2nd portion of the duodenum. The hypopharynx appeared endoscopically normal. In the tubular esophagus, there were copious amounts of nasopharyngeal secretions. After washing the mucosa, it appeared grossly normal. The GE junction was present at 40 cm from the incisors. There were erosive changes at the GE junction that were consistent with grade A erosive esophagitis. There was a hiatal hernia that spanned from 40-45 cm. There were erosions in the hernia sac, invisible reflux during the procedure. In the gastric lumen, there were nonbleeding AVMs with erosive gastritis. The gastritis was present in the fundus, antrum and body. In the antrum, there were also 2 superficial whitish based ulcers with no stigmata of bleeding. There was hemosiderin pigment present in the gastric mucosa with an antral predominance. The pylorus appeared deformed secondary to prior ulcer disease. There was no active pyloric channel ulcer. In the duodenum, there was hemosiderin staining but the mucosa appeared otherwise normal. There was active bile reflux through the pyloric channel throughout the entire procedure. After the exam was complete, the lumen was decompressed and the scope was removed without incident. IMPRESSION: 1. Copious amounts of nasopharyngeal secretions. 2. Grade a erosive esophagitis. 3. Hiatal hernia. 4. Erosive gastritis in the hiatal hernia sac. 5. Pangastritis in the gastric lumen. 6. Antral ulcers x2. 7. Normal-appearing duodenum. 8. Active bile reflux throughout the procedure. 9. Pyloric deformity due to previous ulcer disease. 10. Antral ulcers x2 with whitish bases. RECOMMENDATION: 1. Continue Protonix 40 mg IV q.12 hours as an inpatient. 2. When she is ready for discharge, I would place her on omeprazole 40 mg p.o. b.i.d. for 6 weeks and then resume the once a day dosing schedule. 3. Continue on octreotide for an additional 24 hours. That will complete the 5- day course of octreotide. I would discontinue it after 5 days total therapy. 4. Begin Carafate 1 g 4 times a day for 1 month. Her course is limited due to her renal disease. 5. Because she has ulcer disease and gastritis, I would check a stool H. pylori antigen and treat if positive. 6. Additional recommendations to follow based on her clinical course. 7. She should return to clinic 4-6 weeks after discharge for re-assessment. cc: MD Cee Reinoso MD Alexis R. Penot, MD Bhavna Gowda, MD Reginald D. Gladish, MD MTDD
[2016-10-07 05:57] LABS: ALBUMIN 3.1 g/dL (3.5-5.0); CALCIUM 9.1 mg/dL (8.8-10.2)
[2016-10-07 06:05] LABS: HEMATOCRIT 31.3 % (37.0-47.0); HEMOGLOBIN 10.2 g/dL (12.0-16.0); MCH 34.6 PG (27-31); MCHC 32.6 g/dL (33-37); MCV 106.1 FL (81-99); MPV 10.4 FL (7.4-10.4); RBC 2.95 XMIL (4.2-5.4)
--- NOTE | 2016-10-07 06:13 | Diag Imaging Result Doc PS360 ---
EXAM: CHEST-PORTABLE HISTORY: dyspnea TECHNIQUE: COMPARISON: 10/06/2016. FINDINGS: The heart remains enlarged. The bilateral infiltrates/pulmonary edema. There are small pleural effusions. Basilar atelectasis remains. IMPRESSION: No interval improvement. Electronically signed by Luis Casillas 10/07/2016 6:11 AM
[2016-10-07] MEDS ORDERED: TIGHT: 0.2 ML/HR MISC PRN (06:53)
[2016-10-07] MEDS ORDERED: NS 2,000 ML MISC PRN (06:53)
[2016-10-07] MEDS ORDERED: HEPARIN IV PRN (06:53)
[2016-10-07] MEDS ORDERED: CETAPHIL MOISTURIZING LOT TOP PRN (07:50)
[2016-10-07] MEDS: REGLAN PO SCH ×3 (08:12→17:16)
[2016-10-07] MEDS: THERA M PLUS PO SCH (08:13)
[2016-10-07] MEDS: CYMBALTA PO SCH (08:13)
[2016-10-07] MEDS: APRESOLINE PO SCH ×3 (08:13→17:16)
[2016-10-07] MEDS: LASIX PO SCH ×3 (08:13→17:16)
[2016-10-07] MEDS: TOPROL XL PO SCH ×2 (08:13→23:31)
--- NOTE | 2016-10-07 08:35 | PROGRESS NOTE ---
DATE: 10/07/2016 SUBJECTIVE: She is complaining of itching. No shortness of breath. No nausea or vomiting. No further melena or hematochezia. OBJECTIVE: Vital Signs: Blood pressure 160/65, heart rate 78, respirations 18, afebrile. Intake 1.7 L. Output, none recorded. Physical Examination: General: No acute distress. Skin: Warm and dry with scaling and ecchymoses. HEENT: Conjunctivae are pink. Pupils are equal. Neck: Neck veins are not visible. Trachea is midline. Heart: Regular with a soft early systolic murmur at the apex without radiation. No gallops. Lungs: Have equal breath sounds. No crackles or wheezes. Abdomen: Soft, nontender. Bowel sounds are present. Extremities: Have 1+ edema. No clubbing or cyanosis. Laboratory Data: Sodium 130, potassium 4, chloride 92, bicarbonate 23, BUN 47, creatinine 4.1, albumin 3.1. Hemoglobin 10.2. IMPRESSION: 1. End-stage kidney disease. She will have her routine hemodialysis today with a goal of 2-3 L ultrafiltration. 2. Electrolytes/acid-base in target. 3. Anemia with gastrointestinal bleeding. Hemoglobin is in target. We will dose with erythropoietin. 4. Systolic murmur. We will check an echocardiogram. cc: Nash Felton MD
[2016-10-07] MEDS ORDERED: NS 1,000 ML ONE (08:41)
[2016-10-07] MEDS ORDERED: HEPARIN ONE (08:41)
--- NOTE | 2016-10-07 11:31 | PROGRESS NOTE ---
DATE: 10/07/2016 SUBJECTIVE: The patient has no focal complaints. OBJECTIVE: Blood pressure 148/63, heart rate of 75, respiratory rate 24, temperature 98.1 degrees, 92% on 3 L. Cardiovascular: Regular rate and rhythm. Pulmonary: Diminished at the bases. GI: Soft, nontender, nondistended. Bowel sounds are positive. PROBLEM LIST: 1. Upper gastrointestinal bleed secondary to gastritis. She is on proton pump inhibitor, octreotide; will finish today Hemoglobin and hematocrit have been stable. 2. Volume overload pulmonary edema. We are continuing dialysis. She seems to be clinically improving. CAD appears to be stable. 3. Severe protein calorie malnutrition. She is on nutritional supplements and will advance diet. 4. Bilateral pleural effusions status post thoracentesis. She seems to be doing well from that standpoint. DISPOSITION: We are going to get a physical therapy assessment and then decide if she needs rehab versus home health. cc: Denzel Toscano MD
--- NOTE | 2016-10-07 14:01 | Extremity Venous Study ---
PROCEDURE NAME: Venous U/S Bilateral Legs - 10/02/2016 PROCEDURE: Bilateral lower extremity venous duplex and color flow imaging study. EQUIPMENT: Cloudy.frid E 9 ultrasound system with a 9 L-D transducer. DATE OF STUDY: 10/02/2016. REFERRING PHYSICIAN: Dr. Richter. PATIENT PROFILE: This is a 66-year-old female. 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 INDICATIONS: 1. Shortness of breath, ICD 10 R 06.02. 2. Swelling of the limb, M 79.89. FINDINGS: Right common femoral vein and its branches, deep and superficial femoral veins, were satisfactorily imaged. They had flow through them and were compressible. Right popliteal vein and the deep veins below the right knee were all compressible and had flow through them. The superficial veins of the right lower extremity were compressible throughout their length. There was pulsatile venous flow in the deep veins of the right lower extremity. The left common femoral vein and its branches, deep and superficial femoral veins, were also satisfactorily imaged. They had flow through them and were compressible. Left popliteal vein and the deep veins below the left knee were all compressible and had flow through them. The superficial veins of the left lower extremity were compressible throughout their length. Again there was pulsatile venous flow in the deep veins of the left lower extremity. INTERPRETATION: Pulsatile deep venous flow in both lower extremities suggestive of venous hypertension, but there is no evidence of acute deep or superficial venous thrombosis of the bilateral lower extremities. cc: MD Cee Link MD
[2016-10-07] MEDS: ZANAFLEX PO SCH (20:04)
[2016-10-07] MEDS: DESYREL PO SCH (20:04)
[2016-10-07] MEDS: ZOLOFT PO SCH (20:04)
[2016-10-07] MEDS: TYLENOL PO PRN (23:44)
[2016-10-08] MEDS: CARAFATE LIQUID PO SCH ×4 (03:00→21:31)
[2016-10-08] MEDS: DUONEB (A & A) INH SCH ×4 (03:35→22:30)
[2016-10-08 05:38] LABS: HEMOGLOBIN 9.7 g/dL (12.0-16.0); MCH 34.5 PG (27-31); MCHC 31.3 g/dL (33-37); MCV 110.3 FL (81-99); MPV 11.4 FL (7.4-10.4); RBC 2.81 XMIL (4.2-5.4)
[2016-10-08] MEDS: PROTONIX IV SCH ×2 (05:38→17:14)
[2016-10-08] MEDS: SODIUM CHLORIDE 0.9% INJ SCH ×2 (05:38→17:14)
[2016-10-08 05:50] LABS: ALBUMIN 2.9 g/dL (3.5-5.0); CALCIUM 9.2 mg/dL (8.8-10.2); POTASSIUM 4.1 mmol/L (3.5-5.1)
--- NOTE | 2016-10-08 07:41 | PROGRESS NOTE ---
DATE: 10/08/2016 SUBJECTIVE: Ms. Meade states she feels better. She has been eating and feels like she is ready to move to the floor. PHYSICAL EXAMINATION: Vital Signs: Temperature 99.5 degrees, pulse 80, respirations 16, blood pressure 103/60. HEENT: Pupils are equal and round. Lungs: Are clear in all lung nguyen. Cardiovascular Examination: Regular rhythm and rate without murmur or S3. Abdomen: Soft. Skin: Is warm and dry. Is and Os: Good urine output of 4.5 L. LAB: White count 10,430, hematocrit is 31, platelet count 158,000. Chemistry: Sodium 136, potassium 4.1, chloride 97, BUN 40, creatinine 3.3, blood sugar 120, 124, 106. ASSESSMENT AND PLAN: 1. Upper gastrointestinal bleed secondary to gastritis, on proton pump inhibitor, octreotide finished yesterday. Hemoglobin and hematocrit were stable. Hopefully can move her to the floor. 2. Volume overload, pulmonary edema. Continue dialysis. Clinically, this has improved as well. 3. Coronary artery disease, stable. 4. Severe protein calorie malnutrition. Continue nutritional supplement. Advancing diet. 5. Bilateral pleural effusion, status post thoracentesis which has helped. 6. Her orders were reviewed. Getting Tylenol 1000 mg by mouth every 8 hours as needed, Cymbalta 30 mg a day, Epogen 10237 units subcutaneous on Mondays, Wednesdays, and Fridays. Lasix 40 mg three times a day, Apresoline 50 mg by mouth three times a day, Reglan 2.5 mg three times a day, metoprolol 50 mg twice a day, multivitamin 1 a day, Protonix 40 mg intravenous every 12, Zoloft 50 mg at bedtime, Carafate 1 g intravenous every 6 hours, Zanaflex 4 mg by mouth at bedtime, and trazodone 100 mg by mouth at bedtime. cc: Thomas Zepeda MD
--- NOTE | 2016-10-08 08:16 | PROGRESS NOTE ---
DATE: 10/08/2016 SUBJECTIVE: She has no new complaints today. No shortness of breath, nausea, or vomiting. OBJECTIVE: Vital Signs: Blood pressure 103/60, heart rate 80, respirations 16, T-max 100 degrees. Physical Examination: General: No acute distress. Skin: Warm and dry. HEENT: Conjunctivae are pink. Neck: Neck veins are not visible. Heart: Regular with a systolic murmur present. Lungs: Have equal breath sounds. Few crackles. Abdomen: Soft, nontender. Bowel sounds are present. Extremities: Have no edema, clubbing, or cyanosis. Laboratory Data: Sodium 136, potassium 4.1, chloride 97, bicarbonate 26, BUN 40, creatinine 3.3. Hemoglobin 9.7. IMPRESSION: 1. End-stage kidney disease. She had her routine hemodialysis yesterday. 2. Volume status. Improved by symptoms and examination. 3. Anemia: We will continue erythropoietin and pantoprazole. 4. Social. For placement after her acute issues are resolved. cc: Nash Felton MD
[2016-10-08] MEDS: APRESOLINE PO SCH ×3 (09:22→17:14)
[2016-10-08] MEDS: CYMBALTA PO SCH (09:22)
[2016-10-08] MEDS: EPOGEN SUBQ SCH (09:22)
[2016-10-08] MEDS: TOPROL XL PO SCH ×2 (09:23→21:31)
[2016-10-08] MEDS: THERA M PLUS PO SCH (09:23)
[2016-10-08] MEDS: REGLAN PO SCH ×3 (09:26→17:14)
[2016-10-08] MEDS: ZANAFLEX PO SCH (21:31)
[2016-10-08] MEDS: DESYREL PO SCH (21:31)
[2016-10-08] MEDS: ZOLOFT PO SCH (21:31)
[2016-10-09] MEDS: CARAFATE LIQUID PO SCH ×4 (02:07→21:03)
[2016-10-09] MEDS: DUONEB (A & A) INH SCH ×4 (03:30→20:23)
[2016-10-09] MEDS: SODIUM CHLORIDE 0.9% INJ SCH ×2 (06:14→17:46)
[2016-10-09] MEDS: PROTONIX IV SCH ×2 (06:14→17:46)
[2016-10-09] MEDS ORDERED: TIGHT: 0.2 ML/HR MISC PRN (07:11)
[2016-10-09] MEDS ORDERED: NS 2,000 ML MISC PRN (07:11)
[2016-10-09] MEDS ORDERED: HEPARIN IV PRN (07:11)
[2016-10-09 07:14] LABS: HEMATOCRIT 30.5 % (37.0-47.0); HEMOGLOBIN 9.9 g/dL (12.0-16.0); MCH 34.6 PG (27-31); MCHC 32.5 g/dL (33-37); MCV 106.6 FL (81-99); MPV 11.4 FL (7.4-10.4); RBC 2.86 XMIL (4.2-5.4)
[2016-10-09 07:44] LABS: ALBUMIN 3.2 g/dL (3.5-5.0); CALCIUM 9.6 mg/dL (8.8-10.2); POTASSIUM 4.4 mmol/L (3.5-5.1)
[2016-10-09] MEDS ORDERED: NS 2,000 ML ONE (08:15)
[2016-10-09] MEDS ORDERED: HEPARIN ONE (08:15)
--- NOTE | 2016-10-09 08:22 | PROGRESS NOTE ---
DATE: 10/09/2016 SUBJECTIVE: She states she is feeling well and is hoping for discharge to rehab soon. No shortness of breath, nausea, or vomiting. OBJECTIVE: Vital Signs: Blood pressure 138/50, heart rate 77, afebrile. Generally: She is in no acute distress. She is thin and has significant loss of muscle mass. Skin: Pale and dry. HEENT: Conjunctivae are pink. Neck: Neck veins are not visible. Heart: Regular without gallops. Lungs: Have equal breath sounds. No crackles. Abdomen: Soft, nontender. Bowel sounds present. Extremities: Have trace edema. No clubbing or cyanosis. Laboratory Data: Sodium 133, potassium 4.4, chloride 93, bicarbonate 25, BUN 55, creatinine 4. Hemoglobin 9.9. IMPRESSION AND PLAN: 1. End-stage kidney disease. She will have her routine hemodialysis today. 2. Gastrointestinal bleeding, stable at this point. Continue erythropoietin. 3. Hypertension in target. 4. Electrolytes/acid-base in target. 5. Physical debilitation. Planned assisted placement. cc: Nash Felton MD
[2016-10-09] MEDS: APRESOLINE PO SCH ×3 (13:33→17:46)
[2016-10-09] MEDS: REGLAN PO SCH ×3 (13:53→17:46)
[2016-10-09] MEDS: TOPROL XL PO SCH ×2 (13:54→21:03)
[2016-10-09] MEDS: THERA M PLUS PO SCH (13:54)
[2016-10-09] MEDS: CYMBALTA PO SCH (13:54)
[2016-10-09] MEDS: ZANAFLEX PO SCH (21:03)
[2016-10-09] MEDS: DESYREL PO SCH (21:03)
[2016-10-09] MEDS: ZOLOFT PO SCH (21:03)
[2016-10-10] MEDS: CARAFATE LIQUID PO SCH ×3 (01:48→14:32)
[2016-10-10] MEDS: DUONEB (A & A) INH SCH ×2 (04:17→10:09)
[2016-10-10] MEDS: SODIUM CHLORIDE 0.9% INJ SCH (06:35)
[2016-10-10] MEDS: PROTONIX IV SCH (06:35)
[2016-10-10 08:11] VITALS: BP 120/51
--- NOTE | 2016-10-10 08:57 | PROGRESS NOTE ---
DATE: 10/10/2016 SUBJECTIVE: Patient resting in bed. She has no complaints this morning. OBJECTIVE: Vital Signs: Temperature 98.7 degrees, pulse 73, respiratory rate 18, blood pressure 139/47. Intake 360 mL; output 4.9 L if you have removal on dialysis. General: On exam, this is a chronically ill-appearing, elderly female, resting in bed. She is awake and alert. HEENT: Normocephalic, atraumatic. Oral mucosa moist. Conjunctivae pink. Neck: Supple. There is no JVD in a reclined position. Pulmonary: She has equal excursion. She is clear bilaterally. There is no increased work of breathing. Cardiac: Regular rate and rhythm. There is no murmur appreciated. Extremities: No clubbing, cyanosis or edema today. She is moving her extremities. Extremities are wasted. Integumentary: Skin is warm and dry. She has ecchymoses and extremely thin skin noted. She has multiple skin tears that are dressed appropriately. LAB DATA: I have no new labs today. ASSESSMENT AND PLAN: 1. End-stage renal disease management. Her routine dialysis days are Thursday, , Thursday. If she goes to rehabilitation today, we will dialyze her as an outpatient. Otherwise, will plan to dialyze her in the morning as per her routine. 2. Electrolytes, acid-base balance, anemia. Check labs in the morning. 3. Gastrointestinal bleed followed by primary. She is on Epogen during dialysis. Dictated by KULDEEP Kessler for Nash Felton MD cc: Nash Felton MD
[2016-10-10] MEDS: THERA M PLUS PO SCH (09:50)
[2016-10-10] MEDS: REGLAN PO SCH ×2 (09:52→14:33)
[2016-10-10] MEDS: CYMBALTA PO SCH (09:52)
[2016-10-10] MEDS: APRESOLINE PO SCH ×2 (09:53→14:33)
[2016-10-10] MEDS: TOPROL XL PO SCH (09:53)
[2016-10-10] MEDS: EPOGEN SUBQ SCH (09:53)
--- NOTE | 2016-10-10 12:45 | DISCHARGE SUMMARY ---
ADMISSION DATE: 10/02/2016 DISCHARGE DATE: 10/10/2016 PERTINENT PROCEDURES: 1. Chest, abdomen, and pelvis CT showed extensive atherosclerotic calcifications, large bilateral pleural effusions with compressive atelectasis, diverticulosis coli. 2. Echocardiogram showed an EF of 50%. 3. Ultrasound-guided thoracentesis where they removed 1.4 L from the right side and 900 L from the left side. 4. EGD performed by Dr. Bland that showed erosive esophagitis, hiatal hernia. Cervantes gastritis. Active bowel reflux. Antral ulcers x2 with whitish bases. DISCHARGE DIAGNOSES: 1. Upper gastrointestinal bleed secondary to gastritis. EGD performed by Dr. Bland. Resolved. Hemoglobin and hematocrit has remained stable. Hemodynamically stable. 2. Fluid volume overload. Pulmonary edema. Continue with her hemodialysis. Clinically improved. 3. Severe protein calorie malnutrition. Continue with nutritional supplements. 4. Bilateral pleural effusions. Status post bilateral ultrasound-guided thoracentesis. However they removed 1.4 L from the right and 900 from the left. 5. Physical deconditioning. Patient has worked with physical therapy. Will be discharged to [facility]. 6. End-stage renal disease on hemodialysis Thursday, , and Thursday. We will continue with this on an outpatient basis. 7. Hypertension stable. HOSPITAL COURSE: Ms. Meade is a 66-year-old, female, who carries a past medical history of end-stage renal disease on hemodialysis Thursday, , and Thursday. Followed by Dr. Felton. Coronary artery disease, congestive heart failure, worsening dyspnea over the past 6 months. Anytime she tries to stand or walk she gets weak. Also reported shortness of breath with any type of exertion. Lower extremity edema and orthopnea but denied any chest pain, fevers or chills. She continues to have multiple episodes of diarrhea with occasional vomiting. She had a recent workup of vomiting and diarrhea by Dr. Bland. She had an upper and lower endoscopy, which showed nonbleeding cecal AVM, colonic polyps, extensive diverticulosis, rectal polyps grade 2, internal hemorrhoids and large external hemorrhoids. Her EGD showed a Schatzki's ring, hiatal hernia, multiple gastric AVMs. She had been seen by Dr. Felton. He felt she needed to come to the hospital for evaluation and possible long-term placement because the patient lives alone and is having a difficult time caring for herself. The patient was admitted for upper GI bleed, acute on chronic heart failure exacerbation with a consult for Dr. Felton to resume her dialysis as well as a GI consult to evaluate diarrhea. Patient underwent a chest, abdomen and pelvis CT, revealed well as large bilateral pleural effusions for which she underwent. Ultrasound- guided thoracentesis where they removed 1.4 L from the right and 900 mL from the left. She continued on her hemodialysis schedule. She underwent an EGD with Dr. Bland. She recommended while in-house the patient would be on Protonix IV and at discharge Prilosec 400 b.i.d. for 6 weeks and resume a daily schedule. Continue on her octreotide drip for an additional 24 hours. That gave her a total of 5 days of therapy. She was started on Carafate and will do this for 1 month limited secondary to her renal disease. Stool cultures were negative. Clinically, the patient has improved. We were able to give her nutritional supplements and slowly advanced her diet. She will be discharged to [facility]. She will resume her regular scheduled dialysis. VITAL SIGNS: Temperature is 98.6 degrees, heart rate 76, respiration 17, blood pressure 120/51. O2 is 97% on 3 L nasal cannula. DISCHARGE DIET: Renal with Nepro shakes with noon and evening meals. DISCHARGE MEDICATIONS: As per Dr. Zepeda. Please see MAR. DISPOSITION: The patient is being discharged to [facility], to transition to long-term placement. DISCHARGE INSTRUCTIONS: The patient can return to the ED for any worsening of symptoms. DISCHARGE TIME: Greater than 30 minutes. Dictated by KULDEEP Eden for Thomas Zepeda MD cc: Thomas Zepeda MD
== END 2016-10-10 14:57 ==
LOC: SUATTDRO 09:52 → DIRADM 09:52 → 4N 10:10 → ICU 18:34 → 3N 10-08 18:25
PROVIDERS: ATTEND Emergency Medicine

== ENCOUNTER 2016-12-21 22:47 | Inpatient (IN) ==
[2016-12-21] MEDS ORDERED: LASIX IV ONE (23:11)
[2016-12-21 23:45] LABS: MANUAL DIFF NEEDED? NO
[2016-12-21 23:45] LABS: ALLEN TEST YES; BLOOD TYPE ARTERIAL; DRAW SITE R RADIAL; METHB 0.4 % (0.0-1.5); O2(CT) 15.2 mL/dL (15.0-23.0); PCO2(98.6) 47 mmHg (35-45); PO2(98.6) 96 mmHg (60-100); SAMPLE BLOOD; SAO2 97.1 % (95.0-100.0); THB 11.2 g/dL (11.5-17.4); pH(98.6) 7.43 (7.35-7.45)
[2016-12-21 23:46] LABS: MODALITY BI PAP
[2016-12-21 23:49] LABS: BASO% 0.8 % (0.0-0.8); EOS# 0.13 X1000 (0.0-0.7); EOS% 1.2 % (0.0-10.0); HEMATOCRIT 35.7 % (37.0-47.0); IMM GRAN# 0.02 X1000 (0.0-0.04); IMM GRAN% 0.2 % (0.0-0.5); LYMPH# 1.02 X1000 (1.2-3.4); LYMPH% 9.4 % (20.5-51.1); MCHC 30.8 g/dL (33-37); MCV 103.8 FL (81-99); MONO# 1.14 X1000 (0.11-0.59); MONO% 10.6 % (1.7-9.3); MPV 10.9 FL (7.4-10.4); NEUT% 77.8 % (42.2-75.2); PLT 249 X1000 (130-400); RBC 3.44 XMIL (4.2-5.4)
[2016-12-21 23:58] LABS: INR 1.02; PROTIME 10.7 Seconds (9.2-11.7); PTT 33.8 Seconds (22.0-36.0)
[2016-12-22 00:06] LABS: ALBUMIN 3.7 g/dL (3.5-5.0); CALCIUM 9.6 mg/dL (8.8-10.2); MAGNESIUM 1.8 mg/dL (1.5-2.7); TOTAL BILIRUBIN 0.34 mg/dL (0.20-1.00); TOTAL PROTEIN 6.1 g/dL (6.3-8.3)
[2016-12-22] MEDS ORDERED: ASPIRIN PO ONE (00:15)
--- NOTE | 2016-12-22 00:17 | PROVIDER DOCUMENTATION ---
HPI-General Adult - General Chief Complaint: Shortness of Breath Stated Complaint: sob Time Seen by Provider: 12/21/16 22:50 Source: patient, EMS Allergies/Adverse Reactions: Patient Allergies Allergy/AdvReac Type Severity Reaction Status Date / Time adhesive tape Allergy Unknown Verified 12/22/16 00:21 scopolamine Allergy NAUSEA/VOMI Verified 12/22/16 00:21 TING Opioids-Methadone and Related AdvReac Unknown Verified 12/22/16 00:21 oxycodone AdvReac pt request Verified 12/22/16 00:21 not to have Home Medications: Home Medication List Medication Instructions Recorded Confirmed Last Taken Type Tizanidine HCl [Zanaflex] 4 mg PO HS 04/10/15 12/22/16 12/21/16 History Trazodone [Desyrel] 100 mg PO QHS 04/10/15 12/22/16 12/21/16 History Sertraline [Zoloft] 50 mg PO HS 08/13/15 12/22/16 12/21/16 History Duloxetine [Cymbalta] 30 mg PO DAILY 08/08/16 12/22/16 12/21/16 History Hydralazine [Apresoline] 50 mg PO TID 08/08/16 12/22/16 12/21/16 History Aspirin 81 mg PO DAILY #0 08/22/16 12/22/16 12/21/16 Rx Clopidogrel Bisulfate [Plavix] 75 mg PO QAM #0 08/22/16 12/22/16 12/21/16 Rx Metoclopramide HCl [Reglan] 2.5 mg PO TID 10/02/16 12/22/16 12/21/16 History Omeprazole [Prilosec] 40 mg PO BID #0 10/10/16 12/22/16 12/21/16 Rx Docusate Sodium 100 mg PO DAILY 11/18/16 12/22/16 12/21/16 History Furosemide 40 mg PO DAILY 11/18/16 12/22/16 12/21/16 History Ipratropium/Albuterol Sulfate 3 ml IH Q4H PRN 11/18/16 12/22/16 12/21/16 History [Iprat-Albut 0.5-3(2.5) mg/3 ml] Lorazepam [Ativan] 0.5 mg PO TID 11/18/16 12/22/16 12/21/16 History Metoprolol Succinate E.r. [Toprol 25 mg PO DAILY 11/18/16 12/22/16 12/21/16 History Xl] Ondansetron [Zofran] 4 mg PO TID 11/18/16 12/22/16 12/21/16 History Sevelamer Carbonate [Renvela] 1,600 mg PO TID 11/18/16 12/22/16 12/21/16 History Torsemide 20 mg PO DAILY 12/22/16 12/22/16 12/21/16 History - History of Present Illness -Gen Adult Nature of Presenting Problems: comes from SNF via ems in respiratory distress/failure. Per EMS, she had spo2 in 60s upon arrival which increased to high 80s with 6 L O2 via NC. She has history of ESRD on HD. It appears she has had pleural effusions that have required thorocentesis. She denies any chest pain, fever. Associated Symptoms: reports: shortness of breath. denies: chest pain, cough, diarrhea, fever/chills, headaches, nausea, rash, syncope, vomiting Recently seen or treated by another doctor?: Yes Review of Systems - Adult - REVIEW OF SYSTEMS - ADULT Constitutional: reports: no symptoms reported Eyes: reports: no symptoms reported Ears, Nose, Mouth & Throat: reports: no symptoms reported Cardiovascular: reports: no symptoms reported Respiratory: reports: see HPI Gastrointestinal: reports: no symptoms reported Genitourinary: reports: no symptoms reported Musculoskeletal: reports: no symptoms reported Integumentary: reports: no symptoms reported Neurological: reports: no symptoms reported Psychiatric: reports: no symptoms reported Endocrine: reports: no symptoms reported Hematologic/Lymphatic: reports: no symptoms reported Allergic/Immunologic: reports: no symptoms reported All Other Systems: Reviewed and Negative Past History - Adult - PAST MEDICAL HISTORY-ADULT Review of Records: reports: Old Records Reviewed, Nursing Assessment Review, Medications Reviewed, Social history reviewed & non-contributory. Major Childhood Illnesses: reports: denies history Cardiovascular: reports: CAD, HTN, CA Respiratory: reports: denies history Gastrointestinal: reports: GERD, other (colon) Obstetrical/Gynecological: reports: denies history Genitourinary: reports: ESRD Musculoskeletal: reports: chronic pain (back) Neurological: reports: denies history Psychiatric: reports: anxiety Endocrine/Immune: reports: Diabetes Other Conditions: reports: denies history - PRIOR SURGERIES/PROCEDURES Surgical/Procedure History: reports: cardiac stent (8), back/neck (back) - IMMUNIZATION STATUS Childhood Immunizations: See Nurse Assessment Flu Vaccine: See Nurse Assessment - FAMILY HISTORY Family History: reviewed, not pertinent - SOCIAL HISTORY Smoking: quit greater than 1 year Substance Use: none/never Alcohol Use Frequency: never Living Situation: care facility Physical Exam-General - PHYSICAL EXAM-ADULT Initial Vital Signs Reviewed: Yes - CONSTITUTIONAL General Appearance: moderate distress - EYES Eyes: PERRL/EOMI - HEAD, EARS, NOSE, MOUTH & THROAT HENMT: normocephalic/atraumatic - NECK Neck: supple - RESPIRATORY Respiratory: lungs clear, other (demenished in bases) - CARDIOVASCULAR Cardiovascular: normal peripheral pulses, regular rate, rhythm - GASTROINTESTINAL (ABDOMEN) Abdominal Exam: normal bowel sounds, non tender, soft - LYMPHATIC Lymphatic: no adenopathy - MUSCULOSKELETAL Back Exam: normal inspection Extremity: non-tender, no calf tenderness, other (+1 pitting edema to BLE. neg scarlett's sign.) - SKIN Integumentary: normal color - NEUROLOGIC Neurologic: grossly normal - PSYCHIATRIC Psych/Mental Status: normal mood/affect Progress - PLAN OF CARE/RESULTS Progress/Plan/Lab Results: Vital Signs - 8 hr 12/21/16 23:07 12/22/16 00:03 Temperature 98.7 F Pulse Rate 96 H 88 Respiratory Rate 30 H 25 H Blood Pressure 165/79 146/62 O2 Sat by Pulse Oximetry 92 L 97 Laboratory Results - last 24 hr 12/21/16 12/21/16 12/21/16 23:10 23:10 23:10 WBC 10.80 RBC 3.44 L Hgb 11.0 L Hct 35.7 L MCV 103.8 H MCH 32.0 H MCHC 30.8 L RDW Std Deviation 14.9 H Plt Count 249 MPV 10.9 H Immature Gran % (Auto) 0.2 Neut % (Auto) 77.8 H Lymph % (Auto) 9.4 L Beauregard % (Auto) 10.6 H Eos % (Auto) 1.2 Baso % (Auto) 0.8 Immature Gran # (Auto) 0.02 Neut # (Auto) 8.40 H Lymph # (Auto) 1.02 L Beauregard # (Auto) 1.14 H Eos # (Auto) 0.13 Baso # (Auto) 0.09 PT INR PTT (Actin FS) Specimen Type Sample Site pH pCO2 pO2 HCO3 Base Excess Oxyhemoglobin ABG O2 Sat (Calculated) ABG O2 Saturation ABG Carboxyhemoglobin ABG Methemoglobin Thomas Test A-a O2 Difference Total Hemoglobin Lactate Blood Gas Modality Vent Mode FiO2 % Inspiratory BiPAP Expiratory BiPAP Sodium 136 Potassium 5.0 Chloride 95 L Carbon Dioxide 27 Anion Gap 14 BUN 26 H Creatinine 3.0 H Estimated GFR/1.73 m2 16 BUN/Creatinine Ratio 9 Glucose 103 Calculated Osmolality 277 Calcium 9.6 Magnesium 1.8 Total Bilirubin 0.34 AST 20 ALT 22 Alkaline Phosphatase 426 H Creatine Kinase 38 Troponin T Total Protein 6.1 L Albumin 3.7 Globulin 2.4 Albumin/Globulin Ratio 1.5 Plasma Lactate 0.9 12/21/16 12/21/16 12/21/16 23:10 23:10 23:35 WBC RBC Hgb Hct MCV MCH MCHC RDW Std Deviation Plt Count MPV Immature Gran % (Auto) Neut % (Auto) Lymph % (Auto) Beauregard % (Auto) Eos % (Auto) Baso % (Auto) Immature Gran # (Auto) Neut # (Auto) Lymph # (Auto) Beauregard # (Auto) Eos # (Auto) Baso # (Auto) PT 10.7 INR 1.02 PTT (Actin FS) 33.8 Specimen Type ARTERIAL Sample Site R RADIAL pH 7.43 pCO2 47 H pO2 96 HCO3 29.6 H Base Excess 6.0 H Oxyhemoglobin 95.5 ABG O2 Sat (Calculated) 15.2 ABG O2 Saturation 97.1 ABG Carboxyhemoglobin 1.20 ABG Methemoglobin 0.4 Thomas Test YES A-a O2 Difference 202.0 Total Hemoglobin 11.2 L Lactate 0.60 Blood Gas Modality BI PAP Vent Mode BIPAP FiO2 % 50.0 Inspiratory BiPAP 8.0 Expiratory BiPAP 5.0 Sodium Potassium Chloride Carbon Dioxide Anion Gap BUN Creatinine Estimated GFR/1.73 m2 BUN/Creatinine Ratio Glucose Calculated Osmolality Calcium Magnesium Total Bilirubin AST ALT Alkaline Phosphatase Creatine Kinase Troponin T 0.203 H Total Protein Albumin Globulin Albumin/Globulin Ratio Plasma Lactate Orders Category Date Time Status Cardiac Monitoring DIRECTED Care 12/21/16 22:55 Active Saline Loc NOW Care 12/21/16 22:55 Active CHEST-PORTABLE [RAD] Stat Exams 12/21/16 22:55 Taken ABG [RESP] Routine Lab 12/21/16 23:35 Completed BLOOD CULTURE [BLDCUL] Stat Lab 12/21/16 23:20 Received CBC WITH ELECTRONIC DIFF [HEME] Stat Lab 12/21/16 23:10 Completed CK PROFILE [SP CHEM] Stat Lab 12/21/16 23:10 Completed COMPREHENSIVE METABOLIC PANEL [CHEM] Stat Lab 12/21/16 23:10 Completed LACTATE, PLASMA [CHEM] Stat Lab 12/21/16 23:10 Completed MAGNESIUM [CHEM] Stat Lab 12/21/16 23:10 Completed PRO B-NATRIURETIC PEPTIDE Stat Lab 12/21/16 23:10 Received PROTIME WITH INR [COAG] Stat Lab 12/21/16 23:10 Completed PTT [COAG] Stat Lab 12/21/16 23:10 Completed TROPONIN T Stat Lab 12/21/16 23:10 Completed UA NIMS W/REFLEX CULT [URINALYSIS] Stat Lab 12/22/16 00:12 Ordered Aspirin Med 12/22/16 00:15 Discontinued 325 mg PO NOW ONE Furosemide [Lasix] Med 12/21/16 23:11 Discontinued 40 mg IV NOW ONE BIPAP Stat Oth 12/21/16 22:57 Active EKG [EKG] Stat Ther 12/21/16 22:49 Ordered EKG [EKG] Stat Ther 12/21/16 22:55 Ordered 0000: pt feeling much better. spo2 in high 90's on bipap. Result Diagrams: 12/21/16 23:10 12/21/16 23:10 - XRAY 1 XRAY Study: Chest XRAY Interpretation: right effuse, pulmonary edema-Dr. Wall. - CONSULTS/PCP/HOSPITALIST Notification #1 *Consult/PCP/Hospitalist*: Dr. Angela Time Discussed: 00:00 Reason/Comments: Give 80 mg of lasix. Departure - Departure Date of Disposition Decision: 12/22/16 Time of Disposition Decision: 00:21 DIAGNOSIS: Volume overload, Pleural effusion, Renal failure, Respiratory distress, Hypoxemia Disposition: ADMITTED INPATIENT 09 Certified Medical Emergency: Emergent Condition: Serious Referrals and Follow-Ups: Karie Henderson MD [Primary Care Provider] - - Critical Care Note This patient required my direct & personal management of CC.: Yes Total Time (mins): 30 Critical Care Statement: This patient required my direct personal management to treat or rule out processes, the absence of which, could potentiallly result in sudden, clinically significant life or limb threatening deterioration. Attestation - Physician/ ARMOND Attestation Patient care was provided by Advanced Practice Provider:: Yes Advanced Practice Provider:: Dougie Nichols Advanced Practice Provider documentation review:: The Mid-level provider documentation, treatment plan and medical decision making was reviewed by the physician who agrees with all treatment and medical decision making by the MLP. The physician spent face to face time with patient:: No Advanced Practice Provider documentation review:: Supervising physician onsite and consulted in the evaluation and care of this patient. The physician did not have a face to face encounter with the patient.
[2016-12-22] MEDS ORDERED: LASIX IV ONE (00:20)
[2016-12-22 00:35] LABS: URINE CULTURE NEEDED? NO; URINE MICRO REVIEW NEEDED? NO; URINE SOURCE CATH
[2016-12-22 00:39] LABS: BILIRUBIN URINE NEGATIVE (NEGATIVE); BLOOD URINE NEGATIVE (NEGATIVE); COLOR YELLOW; GLUCOSE URINE TRACE mg/dL (NEGATIVE); LEUKOCYTES URINE NEGATIVE (NEGATIVE); NITRITE URINE NEGATIVE (NEGATIVE); PROTEIN URINE 300 mg/dL (NEGATIVE); SP GRAVITY URINE 1.018; TURBIDITY URINE CLEAR (CLEAR); UROBILINOGEN URINE NORMAL (NORMAL)
[2016-12-22 00:40] LABS: UR EPITHELIAL CELLS <10 /HPF (<10); URINE BACTERIA NEGATIVE /HPF; URINE RBC <10 /HPF (<10); URINE WBC <10 /HPF (<10)
[2016-12-22] MEDS ORDERED: ZOFRAN IV PRN (01:47)
[2016-12-22] MEDS: TYLENOL PO PRN (03:07)
[2016-12-22 04:55] LABS: ALLEN TEST YES; BE 4.2 mmoll (-3.0-3.0); BLOOD TYPE ARTERIAL; DRAW SITE R RADIAL; PCO2(98.6) 50 mmHg (35-45); PO2(98.6) 100 mmHg (60-100); SAMPLE BLOOD; pH(98.6) 7.39 (7.35-7.45)
[2016-12-22 04:56] LABS: MODALITY BI PAP
--- NOTE | 2016-12-22 05:46 | HISTORY AND PHYSICAL ---
PRIMARY CARE PROVIDER: Dr. Henderson. TECHNICAL AIDE: Dr. Felton. CHIEF COMPLAINT: Shortness of breath. HISTORY OF PRESENT ILLNESS: Ms. Meade is a 66-year-old, female who looks older than her stated age. She has end-stage renal disease with Thursday, , Thursday dialysis. She states that she has not missed any dialysis treatments but [facility] respiratory distress and had to be placed on BiPAP. Her oxygen saturation was in the 60s on arrival. A chest x-ray was obtained which showed bilateral pleural effusions, right greater than left. She has required thoracentesis in the past. She stated that she did have mild chest pain the night before. Denied fever, chills, cough, nausea, vomiting, headache, syncope, diarrhea, and dysuria. The patient is not anuric. She states that she does make some urine. She denies greater edema than normal. The patient began saturating in the upper 90s once on BiPAP and her tachypnea resolved. BiPAP will be continued as needed. It can be weaned to nasal cannula as appropriate. She will be placed in the ICU for further evaluation and treatment. PAST MEDICAL HISTORY: 1. End-stage renal disease on Thursday, , Thursday dialysis. 2. Hypertension. 3. Borderline diabetes mellitus. 4. Diastolic congestive heart failure with an ejection fraction of 60%. 5. Coronary artery disease. 6. Gastric AVMs. 7. Diverticulosis. 8. Cecal AVMs. 9. Internal and external hemorrhoids. 10. Hiatal hernia. 11. Multiple colonic polyps. 12. Severe protein calorie malnutrition. PREVIOUS SURGICAL HISTORY: 1. Multiple coronary stents. 2. Hernia repair. 3. Bilateral tubal ligation. 4. Right arm fistula. 5. Previous thoracentesis. 6. Cholecystectomy. 7. Appendectomy. 8. Polypectomy. SOCIAL HISTORY: Lives at a prison. Denies tobacco, alcohol, or illicit drug use or abuse. FAMILY HISTORY: CVA in her father. Coronary artery disease with myocardial infarction in her mother. ALLERGIES: Adhesives, scopolamine, and opioid pain medications. HOME MEDICATIONS: 1. Zanaflex 4 mg p.o. at bedtime. 2. Trazodone 100 mg p.o. at bedtime. 3. Zoloft 50 mg p.o. at bedtime. 4. Cymbalta 30 mg p.o. daily. 5. Hydralazine 50 mg p.o. t.i.d. 6. Aspirin 81 mg p.o. daily. 7. Plavix 75 mg p.o. q.a.m. 8. Reglan 2.5 mg p.o. t.i.d. 9. Omeprazole 40 mg p.o. b.i.d. 10. Zofran 4 mg p.o. t.i.d. 11. Metoprolol succinate extended release 25 mg p.o. daily. 12. DuoNeb q.4 hours p.r.n. inhalation. 13. Furosemide 40 mg p.o. daily. 14. Docusate sodium 100 mg p.o. daily. 15. Renvela 1600 mg p.o. t.i.d. 16. Lorazepam 0.5 mg p.o. t.i.d. 17. Torsemide 20 mg p.o. daily. REVIEW OF SYSTEMS: Fourteen point review of systems conducted with the patient. Pertinent positives listed above in the HPI. All other systems reviewed and found to be negative. PHYSICAL EXAMINATION: VITAL SIGNS: Temperature 97.7 degrees, pulse 92, respirations 25, blood pressure 154/90, oxygen saturation 95% on BiPAP. GENERAL: Pleasant, 66-year-old female, lying on the ER stretcher on BiPAP. Looks older than her stated age. Very frail, is in minimal respiratory distress at this time. HEENT: Head is atraumatic, normocephalic. Pupils equal, round, reactive to light. Extraocular eye movement intact. Sclerae are anicteric. Conjunctivae are pink. Oral mucosa is moist. NECK: Supple. Mild JVD noted with hepatojugular reflex. No carotid bruit on auscultation. CARDIOVASCULAR: S1 and S2 are appreciated with a 3/6 systolic ejection murmur, split S3, S4 noted. LUNGS: Decreased bilaterally. Bibasilar crepitations noted. No rhonchi, no rales. EXTREMITIES: Right upper extremity fistula, positive bruit and thrill. Bilateral lower extremities, 2+ pitting edema, bilaterally diminished pedal pulses 1+. NEUROLOGICAL: Alert and oriented x3. Cranial nerves 2-12 appear to be grossly intact. DIAGNOSTIC DATA: Chest x-ray shows increased pulmonary vascular congestion, bilateral pleural effusions, right greater than left. LABORATORY DATA: WBC 10.8, hemoglobin 11, hematocrit 35.7, platelet count 249, 000. Coagulation studies within normal limits. ABG: PH 7.43, pCO2 47, PO2 96, bicarb 26.6. This was on 50% BiPAP. Sodium 136, potassium 5, chloride 95, carbon dioxide 27, BUN 26, creatinine 3, glucose 103. CK 38, troponin 0.203, pro BNP greater than 35,000. Urine unremarkable. ASSESSMENT AND PLAN: 1. Acute respiratory failure secondary to fluid volume overload. The patient is an end-stage renal disease patient. However, she is not anuric. There were 40 mg originally given of Lasix in the emergency room. We will give an additional 80 mg for diuresis. Nichols catheter will be placed for strict intakes and outputs. BiPAP to be continued but can be weaned as tolerated. 2. End-stage renal disease with hemodialysis. We will consult Dr. Felton. 3. Chronic diastolic heart failure. Patient's ejection fraction is still estimated around 50% as of 10/02/2016. She was noted to have moderate pulmonary hypertension. As noted above, the patient will be diuresed. 4. Hypertension, stable. Continue home medications. 5. Troponinemia with mention of mild chest pain. We will trend cardiac enzymes. This is possibly elevation related to renal function. 6. Protein calorie malnutrition, aware. We will monitor. 7. Code status. [id number] per previous records and family. We will place an order to make patient's code status a do not resuscitate. 8. Further recommendations per patient's clinical course. Dictated by KULDEEP Thibodeaux for Kole Angela MD Seen,examined and discussed plan of care with EMBOSSED OR IMPRESSED LETTERING PAINTER. cc: KULDEEP Thibodeaux MD [facility]
--- NOTE | 2016-12-22 06:23 | Diag Imaging Result Doc PS360 ---
EXAM: CHEST-PORTABLE HISTORY: SOB TECHNIQUE: Portable AP COMPARISON: 12/21/2016 FINDINGS: No change in the moderate-sized bilateral pleural effusions. There is basilar atelectasis to the lower lobes and the right middle lobe. Heart is mildly prominent. Mild pulmonary edema persist. The overall appearance is similar to that of the prior exam. IMPRESSION: Stable chest. Electronically signed by Luis Casillas 12/22/2016 6:21 AM
--- NOTE | 2016-12-22 06:47 | EKG Report ---
Test Performed on : 12/22/2016 06:17:45 AM Test Reason : chest pain Blood Pressure : / mmHG Vent. Rate : 091 BPM Atrial Rate : 091 BPM P-R Int : 136 ms QRS Dur : 098 ms QT Int : 370 ms P-R-T Axes : 016 012 -13 degrees QTc Int : 455 ms Sinus rhythm. with premature atrial complexes. Possible Left atrial enlargement RSR' or QR pattern in V1 suggests right ventricular conduction delay T wave abnormality, consider inferior ischemia Abnormal ECG When compared with ECG of 21-DEC-2016 22:55, (Unconfirmed) T wave inversion inferior III is historical compared to 12/21/2016 Confirmed by Curtis Leon DO ([id number]) on 12/22/2016 5:47:40 PM
[2016-12-22] MEDS ORDERED: NS 2,000 ML MISC PRN (06:54)
[2016-12-22] MEDS ORDERED: TIGHT: 0.2 ML/HR MISC PRN (06:54)
[2016-12-22] MEDS ORDERED: HEPARIN IV PRN (06:54)
--- NOTE | 2016-12-22 06:57 | EKG Report ---
Test Performed on : 12/21/2016 10:55:31 PM Test Reason : Chest Pain Blood Pressure : / mmHG Vent. Rate : 097 BPM Atrial Rate : 097 BPM P-R Int : 136 ms QRS Dur : 090 ms QT Int : 368 ms P-R-T Axes : 000 036 -03 degrees QTc Int : 467 ms Sinus rhythm. with premature atrial complexes. RSR' or QR pattern in V1 suggests right ventricular conduction delay Borderline ECG When compared with ECG of 18-NOV-2016 20:12, premature atrial complexes. are now present RSR' pattern in V1 is now present Unconfirmed Result
--- NOTE | 2016-12-22 07:13 | Diag Imaging Result Doc PS360 ---
EXAM: CHEST-PORTABLE HISTORY: dyspnea TECHNIQUE: AP portable upright at 2305 COMMENT: There are large bilateral pleural effusions. There is cardiomegaly. There is bibasilar atelectasis and pulmonary edema versus pneumonia. The appearance of the chest has not changed appreciably considering differences in technique since 11/18/2016. IMPRESSION: Bilateral pleural effusions. Cardiomegaly. Pulmonary edema versus pneumonia. Electronically signed by Angelo Ford 12/22/2016 7:11 AM
[2016-12-22] MEDS: DUONEB (A & A) INH PRN ×3 (07:41→19:24)
[2016-12-22] MEDS ORDERED: HEPARIN ONE (08:15)
[2016-12-22] MEDS ORDERED: NS 2,000 ML ONE (08:15)
--- NOTE | 2016-12-22 09:57 | CONSULTATION ---
DATE OF CONSULTATION: 12/22/2016 REASON FOR ADMISSION: Increased work of breathing DATE OF CONSULT: 12/22/2016. CONSULTING PHYSICIAN: Dr. Angela. HISTORY OF PRESENT ILLNESS: Ms. Meade is a 66-year-old white female who is known to our outpatient services for hemodialysis on Thursday, , Thursday. She states that she has not missed any of her treatments but has developed an increased work of breathing several days prior to her hospitalization. Patient states that she resides at [facility]. Developed respiratory distress and was placed on O2. She was then sent to [facility]'s Emergency Department. Her O2 saturations were low. She was placed on BiPAP. Her room air oxygenation was 60s on arrival. Chest x-ray indicated bilateral pleural effusions with right greater than left. It is noted that patient has required a thoracentesis in the past. Patient states that she does have mild diarrhea which is chronic for the last year. She has dysuria. She denies chest pain though she stated that she did have a twinge more towards her left chest than her right initially upon arrival to the hospital. No nausea, no vomiting. No fever or chills. No cough, no syncopal episode. Patient states that she has continued to lose weight over the last year of unknown reason. She states that she does attempt to eat. Patient is subsequently admitted to ICU for evaluation and follow up. She is not due for dialysis today but secondary to her increased work of breathing. We have discussed dialysis treatment today and possibly tomorrow. PAST MEDICAL HISTORY: End-stage renal disease with hemodialysis on Thursday, , Thursday at the [facility]. Hypertension, borderline diabetes, diastolic congestive heart failure with ejection fraction of 60% last recorded. French artery disease, gastric AVMs, diverticulosis, cecal AVM, internal and external hemorrhoids, hiatal hernia, multiple colonic polyps. Severe protein and calorie malnutrition, anemia of chronic disease, osteodystrophy of chronic disease. PREVIOUS SURGICAL HISTORY: 1. Multiple coronary stents. 2. Hiatal hernia repair. 3. Bilateral tubal ligation. 4. AV fistula to the right upper arm. 5. Previous thoracentesis. 6. Cholecystectomy. 7. Appendectomy. 8. Polypectomy. 9. Previous EGDs and colonoscopies. SOCIAL HISTORY: She lives at [facility]. She denies any current tobacco, alcohol or illicit drug use. FAMILY HISTORY: CVA in her father. Coronary artery disease, and myocardial infarction with her mother. No history of kidney disease. CURRENT ALLERGIES: 1. Adhesives. 2. Scopolamine. 3. Opioid pain medication. HOME MEDICATIONS: 1. Zanaflex. 2. Trazodone. 3. Zoloft. 4. Cymbalta. 5. Hydralazine. 6. Aspirin. 7. Plavix. 8. Reglan. 9. Omeprazole. 10. Zofran. 11. Metoprolol succinate extended release. 12. DuoNeb. 13. Furosemide. 14. Docusate sodium. 15. Renvela. 16. Lorazepam. 17. Torsemide. 18. The patient also is on protein X. 19. Rocaltrol. 20. IV iron. 21. Aranesp as indicated at the outpatient clinic. REVIEW OF SYSTEMS: Times 10 with pertinent positives listed above in the HPI. PHYSICAL EXAMINATION: Vital Signs: Last temperature 96.9 degrees, blood pressure 106/86, heart rate 94, respirations are 32. She remains on BiPAP at 50%. She has had 222, in she has had 200 out. LABS: Sodium is 136, potassium 5, chloride 95, CO2 27, BUN 26, creatinine 3, glucose 103. She has an anion gap. Labs recorded of 14, creatinine of 3 BUN 26. Calcium 9.6, magnesium 1.8. Albumin 3.7, white count 10.8, hemoglobin 11, hematocrit 35.7, platelet count 249,000. ABGs this a.m., pH 7.39 CO2 50, PO2 100, bicarb 28.2 on 50% BiPAP. Blood cultures are currently pending. Chest x-ray completed this morning shows stable chest with basilar atelectasis to the lower lobes right middle lobe. Mild pulmonary edema. PHYSICAL EXAMINATION: General: This is a 66-year-old white female. She is resting in bed. Head of the bed is elevated. She is in no acute distress. She remains on BiPAP. HEENT: Normocephalic, atraumatic, conjunctiva is pale. She has MICKY. Mucous membranes are dry. Neck: Supple. Trachea midline. No JVD. Cardiovascular: She has a systolic murmur. No gallop appreciated. Lungs: Clear to auscultation anterior. She remains on BiPAP. She is using some accessory muscles. Abdomen: Soft, nontender. Positive bowel sounds. Genitourinary: Not inspected. Patient has minimal void with dialysis assist. Extremities: She has 2+ edema. Integumentary: The patient has multiple ecchymoses in stages of healing to her extremities and upper torso and lower extremities. Neurological: She is alert and oriented x3. ASSESSMENT AND PLAN: 1. End-stage renal disease. Patient is due for her routine dialysis treatment today secondary to her fluid volume overload. We will place her on a 2 K bath. She is to dialyze for 3.5 hours. We will attempt to remove 3-4 L of ultrafiltration. 2. Electrolytes. These are stable. Acid-base balance this is stable. 3. Anemia. This is close to target. This is stable. 4. Protein calorie malnutrition. Patient has been encouraged to eat high- protein intake. I would like to thank you for allowing us to follow with this patient. Patient seen, data reviewed, discussed with Hiren Fitch on 12/22/16. I agree with the above assessment and plan of care. rg Dictated by KULDEEP Saul for Nash Felton MD cc: KULDEEP Saul MD [facility]
[2016-12-22] MEDS: RENAGEL PO SCH ×3 (12:10→17:24)
[2016-12-22] MEDS: PRILOSEC PO SCH ×2 (12:55→20:36)
[2016-12-22] MEDS: ASPIRIN PO SCH (12:55)
[2016-12-22] MEDS: APRESOLINE PO SCH ×3 (12:55→17:25)
[2016-12-22] MEDS: TOPROL XL PO SCH (12:56)
[2016-12-22] MEDS: PLAVIX PO SCH (12:56)
[2016-12-22] MEDS: REGLAN PO SCH ×3 (12:56→17:25)
[2016-12-22] MEDS: DEMADEX PO SCH (12:58)
[2016-12-22] MEDS: LASIX PO SCH (12:59)
[2016-12-22] MEDS: COLACE PO SCH (12:59)
[2016-12-22] MEDS: ATIVAN PO SCH ×3 (12:59→17:25)
[2016-12-22] MEDS: CYMBALTA PO SCH (12:59)
[2016-12-22] MEDS: HEPARIN SUBQ SCH (13:00)
[2016-12-22] MEDS: ZANAFLEX PO SCH (20:36)
[2016-12-22] MEDS: DESYREL PO SCH (20:36)
[2016-12-22] MEDS: ZOLOFT PO SCH (20:36)
[2016-12-23] MEDS: HEPARIN SUBQ SCH ×3 (01:04→17:02)
[2016-12-23 06:39] LABS: MANUAL DIFF NEEDED? NO
[2016-12-23 07:05] LABS: CALCIUM 9.6 mg/dL (8.8-10.2); POTASSIUM 4.9 mmol/L (3.5-5.1)
[2016-12-23 07:09] LABS: BASO% 0.8 % (0.0-0.8); EOS# 0.16 X1000 (0.0-0.7); EOS% 1.6 % (0.0-10.0); HEMOGLOBIN 11.4 g/dL (12.0-16.0); IMM GRAN# 0.02 X1000 (0.0-0.04); IMM GRAN% 0.2 % (0.0-0.5); LYMPH# 0.83 X1000 (1.2-3.4); LYMPH% 8.1 % (20.5-51.1); MCH 31.4 PG (27-31); MCV 104.7 FL (81-99); MONO# 1.18 X1000 (0.11-0.59); MONO% 11.5 % (1.7-9.3); MPV 11.3 FL (7.4-10.4); NEUT% 77.8 % (42.2-75.2); PLT 236 X1000 (130-400); RBC 3.63 XMIL (4.2-5.4)
[2016-12-23] MEDS ORDERED: NS 2,000 ML MISC PRN (07:15)
[2016-12-23] MEDS ORDERED: HEPARIN IV PRN (07:15)
[2016-12-23] MEDS ORDERED: TIGHT: 0.2 ML/HR MISC PRN (07:15)
[2016-12-23] MEDS ORDERED: NS 2,000 ML ONE (08:05)
[2016-12-23] MEDS ORDERED: HEPARIN ONE (08:05)
--- NOTE | 2016-12-23 08:24 | ED EKG INTERP ---
This chart was entered by Richard Tompkins Scribe, acting as scribe for Oh Pena MD. EKG Interpretation - EKG Time of EKG reading by physician:: 22:55 EKG Read and Signed by:: Oh Pena EKG Interpretation (*Must complete 3 of following elements*): Abnormal (RSR` or QR pattern in V1 suggests right ventricularconduction delay. Poor R wave progression) Rate: 97 Rhythm: Sinus rhythm with PAC Prior EKG Comparison: changes noted (Compared to 11/18/2016, pt has developed new 'Poor R wave progression') This chart was documented by the indicated scribe, (Richard Tompkins Scribe) and accurately reflects the services I performed and decisions made by me, Oh Narayanan MD, as attested by the provider's signature.
[2016-12-23] MEDS: RENAGEL PO SCH ×3 (08:26→17:02)
[2016-12-23] MEDS: CYMBALTA PO SCH (08:27)
[2016-12-23] MEDS: APRESOLINE PO SCH ×3 (08:27→17:02)
[2016-12-23] MEDS: REGLAN PO SCH ×3 (08:27→17:02)
[2016-12-23] MEDS: TOPROL XL PO SCH (08:27)
[2016-12-23] MEDS: DEMADEX PO SCH (08:27)
[2016-12-23] MEDS: PLAVIX PO SCH (08:27)
[2016-12-23] MEDS: ASPIRIN PO SCH (08:28)
[2016-12-23] MEDS: COLACE PO SCH (08:28)
[2016-12-23] MEDS: LASIX PO SCH (08:28)
[2016-12-23] MEDS: ATIVAN PO SCH ×3 (08:28→17:02)
[2016-12-23] MEDS: PRILOSEC PO SCH ×2 (08:28→21:53)
[2016-12-23] MEDS ORDERED: TYLENOL ONE (09:22)
[2016-12-23] MEDS: TYLENOL PO PRN ×3 (09:24→21:53)
--- NOTE | 2016-12-23 09:28 | PROGRESS NOTE ---
DATE: 12/23/2016 SUBJECTIVE: Ms. Meade is resting quietly in bed. She is now on 4 L nasal cannula. She denies chest pain. States her breathing has improved. OBJECTIVE: Her most recent vital signs: Her temperature 97.6 degrees, blood pressure 161/92, heart rate 86, respirations 16. She is on 4 L nasal cannula. Last recorded saturation 96%. She has had 510 In. She has had 3911 out with 3.8 L on dialysis. Her most recent labs: Sodium 139, potassium 4.9, chloride 98, CO2 of 30. BUN 27, creatinine 30, glucose 83. Her anion gap is 11. Calcium is 9.6. She has a TSH of 1.2. Hemoglobin 11.4, hematocrit 38, white count 10.28 with a platelet count of 236,000. PHYSICAL EXAMINATION: General: This is a 66-year-old white female. She is resting in bed. She appears chronically ill. She is in no acute distress. Her skin is warm and dry. HEENT: Normocephalic, atraumatic. Conjunctivae pale. She has MICKY. Mucous membranes are moist. Neck supple. Trachea midline. No JVD. Cardiovascular: She has regular rate and rhythm. She has a systolic murmur that is present. Lungs are clear to auscultation anteriorly. Equal excursion on O2. Abdomen os soft, nontender. Positive bowel sounds. Genitourinary: Not inspected. Minimal void with dialysis assist. Extremities: Continues with 2+ edema up into the hip sacral abdominal area. Integumentary: The patient has multiple ecchymotic areas to her upper extremities, chest wall, and lower extremities, healing at different stages. Neurological: She is alert and oriented x3. ASSESSMENT AND PLAN: 1. End-stage renal disease. Patient has a routine dialysis treatment today per her routine prescription. This will be her second day in a row secondary to fluid volume overload. We will place her on a 2 K bath. She is to dialyze for 3.5 hours. We will attempt to pull 4-6 L of ultrafiltration as tolerated per blood pressure. 2. Electrolytes. These remain stable. 3. Acid-base balance. This is stable. 4. Anemia. This is close to target. 5. Fluid volume overload. Again, patient to dialyze second day in a row with attempt to pull patient below her dry weight. I would like to thank you for allowing us to follow with this patient. Patient seen, data reviewed, discussed with Hiren Fitch on 12/23/16. I agree with the above assessment and plan of care. rg Dictated by KULDEEP Saul for Nash Felton MD cc: KULDEEP Saul MD [facility]
--- NOTE | 2016-12-23 13:19 | PROGRESS NOTE ---
DATE: 12/23/2016 SUBJECTIVE: Today Ms. Meade refers to be doing a lot better. Breathing is significantly improved. Patient has had dialysis today as well. OBJECTIVE: Vital signs: Blood pressure is 113/58, pulse of 77, respirations 18, temperature is 98.7 degrees. Patient is saturating 100% on room air. Of note, patient had a pulse also of 92 when she came in. General: Ms. Meade is a 66-year-old female. She is in bed. She does not seem to be in any remarkable distress. HEENT: Mucosa is pink and moist. Anicteric. Acyanotic. Neck: Supple. There is a trace of JVD. Chest: Air entry is bilaterally reduced. There are bilateral crepitations in the lung nguyen, more so to the right posterior lung field. Cardiovascular: Regular rate and rhythm. There are occasional extrasystole beats. Seems to be about a 2-3 aortic systolic murmur. Abdomen: Soft, nontender. Extremities: No pedal edema. 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 There is no focal neurological deficit. LABORATORY DATA: WBC is 10.28, hemoglobin is 11.4, platelet count of 236,000. Chemistry is reviewed, consistent with end-stage renal disease. The patient's chest x-ray yesterday did show moderate-sized bilateral pleural effusions. There is bibasilar atelectasis. An EKG yesterday showed sinus rhythm with occasional PACs. There is an S1, Q3, T3 pattern on the EKG. There is some T-wave inversion in the inferior leads and there is an incomplete right bundle branch pattern. Troponins were slightly elevated when the patient presented. ASSESSMENT: 1. Acute hypoxemic respiratory failure secondary to fluid overload. The patient has been diuresed on 2 occasions and breathing has significantly improved. 2. Acute pulmonary edema with pleural effusions suggestive of acute congestive heart failure. The patient had an echo September of this year. Seems to have an ejection fraction of 50%. Troponins were elevated and patient does have some abnormalities on the EKG, so we are more concerned of the possibility of coronary artery disease with possible acute non-STEMI causing the heart failure. Will therefore consult cardiology, orders stress test, and then go from there. Of concern too, there is a possibility of a PE. However, patient seems to have remarkably improved with the fluid management from a dialysis standpoint. We will, however, do a V/Q scan tomorrow after the stress test to make sure there are no perfusion defects. 3. End-stage renal disease. Patient is on hemodialysis. Nephrology is on board. 4. Protein calorie malnutrition. 5. Hypertension, stable. PLAN: So today I think Ms. Meade is doing a lot better. Breathing has significantly improved. We are going to discontinue the Nichols catheter and will transfer the patient from the ICU to a regular floor. Continue with monitoring tech and all of the other care. cc: Gideon Jaimes MD
--- NOTE | 2016-12-23 16:02 | CONSULTATION ---
DATE OF CONSULTATION: 12/23/2016 REQUESTING PHYSICIAN: Hospitalist Service. REASON FOR CONSULTATION: Chest pain, elevated troponins. Suspect non-ST myocardial infarction . HISTORY OF PRESENT ILLNESS: Ms. Meade is a 66-year-old female who comes from [facility], where she is a resident. The patient states that for a day or two prior to initial presentation, which took place in the evening hours of 12/21/2016, she noted increasing dyspnea and some swelling of her legs. She has also reported intermittent episodes of precordial chest pain, short lasting, to some extent reminiscent of previous episodes of angina. Upon presentation, they did a chest x-ray that showed bilateral pleural effusions, cardiomegaly, and probable pulmonary edema. Her proBNP level was greater than 35,000. Her troponin levels have been checked several times and they were 0.210, 0.242, 0.223. Her EKG upon presentation showed sinus rhythm with PAC, incomplete right bundle, and nonspecific T-wave change in the inferior leads. This has been repeated and no significant changes are noted. There is a nonspecific T-wave in the inferior leads. The patient says that since admission she has had dialysis. She has been given also some medicines that have helped her breathing. Right now, she is feeling much more comfortable. I am seeing her in the afternoon of 12/23/2016. She is not having any more chest pains. PAST HISTORY: Positive for advanced renal failure. She has been on dialysis for a few years. She has a fistula created in the right arm. She has history of severe coronary heart disease. She used to live in [place], [place] and over there she had multiple stents, beginning in 1998. She has been living in the [facility] for the past 8 years. She has history of diabetes mellitus, which is, according to her, borderline. She has had some COPD. Previous studies performed on her in the hospital have included echocardiogram done in March 2015 that showed ejection fraction of 60% with no significant valvular abnormalities. The patient has also a history of previous admissions with bilateral pleural effusions that were drained. She has had diverticulosis, internal and external hemorrhoids, multiple colonic polyps, and severe protein calorie malnutrition. PAST SURGICAL HISTORY: She had cholecystectomy, appendectomy, and polypectomy. SOCIAL HISTORY: She lives by herself. Actually, she is living at [facility]. She has 2 living children. FAMILY HISTORY: Noncontributory. REVIEW OF SYSTEMS: Multiple systems were checked and are noncontributory beyond what I have said. The patient has very poor exercise capacity. [facility] and uses a wheelchair to get around. ALLERGIES: Adhesive tape, scopolamine, opioids, methadone, and oxycodone. HOME MEDICATIONS: Torsemide 20 mg daily, trazodone 100 at bedtime, Zanaflex 4 mg at bedtime, Renvela 1600 three times a day, Zoloft 50 mg at bedtime, ondansetron 4 mg 3 times a day, Prilosec 40 twice a day, metoprolol 25 daily, metoclopramide 2.5 three times a day, lorazepam 0.5 three times a day, hydralazine 50 three times a day, furosemide 40 mg daily, Cymbalta 30 mg daily, docusate 100 daily, Plavix 75 daily, aspirin 81 mg daily. PHYSICAL EXAMINATION: VITAL SIGNS: Blood pressure is 113/58, temperature 98.7, pulse 77. GENERAL: The patient is awake, alert, appears to be chronically ill, in no distress. HEENT: No jugular venous distention. CHEST: Diminished breath sounds bilaterally. HEART: Sounds are regular, rhythmic. No gallop or murmur is noted. ABDOMEN: Nontender, soft, scaphoid. EXTREMITIES: Showed decreased pulses bilaterally. No edema. NEUROLOGIC: Follows commands. Moves all 4 extremities. LABORATORY: Sodium is 139, potassium 4.9, BUN 27, creatinine 3.0, chloride 98, carbon dioxide 30. Hemoglobin is 11.4, hematocrit 38%. IMPRESSIONS: 1. Patient presenting with increasing dyspnea, probably decompensated congestive heart failure, more than likely diastolic, given the unremarkable EKG. 2. History of severe coronary heart disease with multiple stents in the past. Positive troponin. Possible [id number] myocardial infarction . 3. End-stage renal disease, on hemodialysis. Probably or very likely fluid overload. 4. Protein calorie malnutrition. 5. History of former smoking. 6. Chronic obstructive pulmonary disease. RECOMMENDATIONS: We will do an echocardiogram. We will follow her along with you. At this point in time, I do not anticipate any major intervention. Further advice will depend on her clinical course. cc: Nii Durbin MD
[2016-12-23] MEDS: DUONEB (A & A) INH PRN (20:13)
[2016-12-23] MEDS: ZOLOFT PO SCH (21:53)
[2016-12-23] MEDS: ZANAFLEX PO SCH (21:53)
[2016-12-23] MEDS: DESYREL PO SCH (21:53)
[2016-12-24] MEDS: HEPARIN SUBQ SCH ×2 (05:15→17:05)
[2016-12-24] MEDS: DUONEB (A & A) INH PRN ×5 (07:35→23:11)
[2016-12-24] MEDS ORDERED: LEXISCAN ONE (08:03)
[2016-12-24] MEDS ORDERED: AMINOPHYLLINE ONE (08:30)
[2016-12-24] MEDS: DEMADEX PO SCH (11:14)
[2016-12-24] MEDS: LASIX PO SCH (11:15)
[2016-12-24] MEDS: REGLAN PO SCH ×3 (11:15→20:47)
[2016-12-24] MEDS: TOPROL XL PO SCH (11:15)
[2016-12-24] MEDS: PLAVIX PO SCH (11:16)
[2016-12-24] MEDS: COLACE PO SCH (11:16)
[2016-12-24] MEDS: CYMBALTA PO SCH (11:16)
[2016-12-24] MEDS: ASPIRIN PO SCH (11:16)
[2016-12-24] MEDS: PRILOSEC PO SCH ×2 (11:17→20:47)
[2016-12-24] MEDS: APRESOLINE PO SCH ×3 (11:17→20:47)
[2016-12-24] MEDS: ATIVAN PO SCH ×3 (11:17→20:47)
[2016-12-24] MEDS: RENAGEL PO SCH ×3 (11:17→16:57)
--- NOTE | 2016-12-24 13:17 | Diag Imaging Result Document ---
PROCEDURE NAME: MYOCARDIAL PERF SCAN, STR/REST - 12/24/2016 INDICATION: Chest pain. PROCEDURES PERFORMED: 1. Lexiscan stress. 2. Two-day stress rest myocardial perfusion imaging. PROCEDURE IN DETAIL: Ms. Meade was brought to the nuclear laboratory and had a resting study on the with injection of 25.4 mCi of technetium-99m sestamibi to usual imaging protocol utilized. Subsequently she came back and had a Lexiscan stress. At peak stress, was injected with 25.9 mCi of technetium-99m sestamibi with usual imaging protocol utilized. FINDINGS: LEXISCAN STRESS RESULTS: 1. Baseline EKG shows sinus rhythm. 2. Lexiscan stress did not demonstrate any clear evidence of ischemic related EKG changes or significant arrhythmias. PERFUSION IMAGING RESULTS: 1. No evidence of significant transient ischemic dilatation. TID ratio is 1.10. 2. Perfusion imaging seems to demonstrate 2 separate defects. The first defect is a small sized, mild intensity, fixed defect located in the inferior lateral mid and inferior lateral base. Again, is mild in intensity, fixed. The second defect is a small sized, mild intensity, fixed defect in the mid anterior septal. There is no evidence of ischemic changes on this study. I believe these defects are more likely suggestive of artifactual changes as opposed to true perfusion abnormalities due to coronary occlusions. 3. Reduced ejection fraction of 46% on rest and 42% on stress. The stress end-diastolic volume was 206 with an end systolic volume of 120. There appears to be mild global hypokinesis associated with this. cc: MD Gideon Taylor MD
--- NOTE | 2016-12-24 13:25 | PROGRESS NOTE ---
DATE: 12/24/2016 CHIEF COMPLAINT: Shortness of breath. SUBJECTIVE: Ms. Meade is breathing a little better today. She has not experienced any significant bout of chest pain. Echocardiogram was done yesterday and it shows overall preserved ejection fraction, although the study was technically quite limited. Her skin is bruised in multiple areas. She has undergone dialysis yesterday. She is complaining of back pain. OBJECTIVE: VITAL SIGNS: Blood pressure is 137/75, temperature 91, pulse 78, respirations 22. GENERAL: She is elderly, cachectic, in no distress. HEENT: Slight jugular venous distention. CHEST: Diminished breath sounds at the bases. HEART: Sounds are regular, rhythmic, with some extra systoles. No significant murmur, gallop, or rub is noted. ABDOMEN: Scaphoid, soft. Bowel sounds diminished. EXTREMITIES: Showed no edema. She has a fistula in the right arm. NEUROLOGIC: Follows commands. Moves 4 extremities. LABORATORY: Hemoglobin 11.4, white count 10,280. Sodium 139, potassium 4.9, BUN 27, creatinine 3.0. IMPRESSIONS: 1. Patient who presented with increasing dyspnea consistent with congestive heart failure, diastolic dysfunction. 2. End-stage renal disease, on hemodialysis, probably fluid overloaded. 3. Cachectic. Protein calorie malnutrition. 4. Chronic obstructive pulmonary disease. Former smoker. 5. Chronic obstructive pulmonary disease. RECOMMENDATIONS: Patient's nucleated stress test performed today shows that there is no evidence of any ischemic defect using the Lexiscan protocol. The ejection fraction on this study appears to be somewhat decreased at 42%. There is no convincing evidence of ischemia here. Her echocardiogram was difficult. It was a very difficult study. At this point in time, from Cardiology standpoint, I would suggest to continue the present program. Her dialysis may have to be intensified and, if that is not possible, consider performing thoracentesis to try to help her expand her lungs, especially on the left side, where the pleural effusion appears to be the largest. Will be happy to follow her along. However, at this point in time, her cardiac status appears to be quite stable. Thank you again for asking us to participate in her evaluation. cc: Nii Durbin MD
--- NOTE | 2016-12-24 15:22 | ECHO REPORT ---
ORDER DATE: 12/23/2016 MEASUREMENTS: 1. Left ventricular end-diastolic diameter 6.2 cm. 2. End systolic diameter 4.1 cm. 3. Posterior wall thickness 1.0 cm. 4. Septal thickness 1.0 cm. 5. Left atrium 3.9 cm. 6. Aortic root 3.3 cm. SUMMARY: 1. Fair quality study. 2. Moderate fibrocalcific changes of leaflet aortic valve demonstrated with reduced aortic valve leaflet mobility. The noncoronary cusp and left coronary cusp appear to be at least partially fused. The peak gradient across the aortic valve is 30 mmHg with a mean gradient of 15 mmHg. Calculated aortic valve area using continuity equation and left ventricular outflow tract diameter of 2.0 cm results in an aortic valve area 1.4 cm2. Mild aortic stenosis is suggested. There is mild aortic regurgitation. Mild thickening of mitral valve leaflets demonstrated with adequate mitral valve opening. There is moderate mitral regurgitation. Tricuspid and pulmonic valves are without structural abnormality with mild tricuspid regurgitation and mild pulmonic insufficiency. Estimated systolic PA pressure by Doppler is 37 mmHg. Mild pulmonary hypertension suggested. The aortic root is normal size. 3. Normal left ventricular dimensions suggested on 2-dimensional images. Estimated left ventricular ejection fraction appears to be 55%-60%. The very base of the inferior wall appears severely hypokinetic. No other wall motion biopsies are evident. Left atrium is mildly enlarged. Right atrium and right ventricle are normal in size with normal right ventricular systolic function. 4. No pericardial effusion. 5. Large left pleural effusion and small right pleural effusion demonstrated. 6. Inferior vena cava not well demonstrated. CONCLUSIONS: 1. Mild aortic stenosis with mild aortic regurgitation. 2. Moderate mitral regurgitation. 3. Mild tricuspid regurgitation with mild pulmonary hypertension by Doppler. 4. Estimated left ventricular ejection fraction approximately 55%. 5. Mild left atrial enlargement. 6. Bilateral pleural effusions with large left pleural effusion evident. cc: MD Nii Mcneal MD
--- NOTE | 2016-12-24 17:05 | PROGRESS NOTE ---
DATE: 12/24/2016 SUBJECTIVE: Today, Ms. Meade refers to be doing a lot better. Continues to have some residual shortness of breath, but on the whole, she says this has significantly improved. EXAM: Vitals: Blood pressure is 149/63, pulse of 78, respirations 20, temperature 98.2. General Exam: Ms. Meade is a 66-year-old, female. She is in bed, does not seem to be in any remarkable distress. She looks slightly undernourished. HEENT: Mucosa is pink and moist. Anicteric. Acyanotic. Neck: Supple. No JVD this morning. Chest: Air entry is bilaterally reduced, more so to the posterior lung nguyen. Cardiovascular: Regular rate and rhythm. Occasional extrasystolic beats. There is about a 2/6 aortic systolic murmur. Abdomen: Soft. Extremities: No pedal edema. 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 There is no focal neurological deficit. LABORATORY DATA: None today. An echo showed an ejection fraction of 55%. Bilateral pleural effusions and large left pleural effusion is evident. A perfusion scan was done which shows fixed defect. No ischemic induced abnormalities. ASSESSMENT: 1. Acute hypoxemic respiratory failure on presentation due to pulmonary edema. 2. Acute diastolic congestive heart failure with pulmonary edema and pleural effusions. 3. End-stage renal disease on hemodialysis. 4. Protein calorie malnutrition. 5. Hypertension. 6. Elevated troponins. So far, ischemic workup has been negative and we suspect this is all related to under secretion from her end-stage renal disease. PLAN: So today, we are going to continue with the current medications, including aspirin clopidogrel, diuretics and metoprolol. Hopefully, patient gets dialyzed again today to improve on the pulmonary edema and will repeat a chest x-ray in the morning to see how she is doing. Will also consult PT to start working with the patient. cc: Gideon Jaimes MD
[2016-12-24] MEDS: ZANAFLEX PO SCH (20:47)
[2016-12-24] MEDS: ZOLOFT PO SCH (20:47)
[2016-12-24] MEDS: DESYREL PO SCH (20:48)
[2016-12-25] MEDS: DUONEB (A & A) INH PRN ×2 (03:19→19:37)
[2016-12-25] MEDS: HEPARIN SUBQ SCH ×2 (06:03→18:18)
[2016-12-25] MEDS ORDERED: NS 2,000 ML ONE (06:48)
[2016-12-25] MEDS ORDERED: HEPARIN ONE (06:48)
[2016-12-25] MEDS ORDERED: NS 2,000 ML MISC PRN (07:00)
[2016-12-25] MEDS ORDERED: TIGHT: 0.2 ML/HR MISC PRN (07:00)
[2016-12-25] MEDS ORDERED: HEPARIN IV PRN (07:00)
[2016-12-25 07:05] LABS: ALBUMIN 4.1 g/dL (3.5-5.0); CALCIUM 9.3 mg/dL (8.8-10.2); POTASSIUM 5.4 mmol/L (3.5-5.1)
[2016-12-25] MEDS: RENAGEL PO SCH ×3 (08:39→16:52)
--- NOTE | 2016-12-25 09:25 | PROGRESS NOTE ---
DATE: 12/25/2016 SUBJECTIVE: Ms. Meade is resting quietly in bed. A family member is at the bedside. She denies chest pain or increased work of breathing. She states that she has not been out of bed and does get dyspneic on exertion. OBJECTIVE: Vital signs: Temperature 98 degrees, blood pressure of 156/78, heart rate 87, respirations 14. The patient is on 6 liters nasal cannula, last recorded saturation 96%. She has had 120 input, and she has had zero recorded out with need for dialysis. LABORATORY DATA: Sodium 134, potassium 5.4, chloride 93, CO2 of 22, BUN 62, creatinine 4.9, glucose 89, anion gap 19, calcium 9.3, phosphorus 5.9, albumin 4.1. Previous hemoglobin 11.4 on 12/23/2016. PHYSICAL EXAMINATION: General: This is a 66-year-old white female. She appears chronically ill. She is in no acute distress. Skin: Warm and dry. HEENT: Normocephalic, atraumatic. Conjunctivae are pale. She has MICKY. Mucous membranes are moist. Neck: Supple. Trachea midline. No JVD. Cardiovascular: She is in irregular pattern today, bigeminal on the monitor. Soft murmur is noted. Lungs: Clear to auscultation bilaterally. Equal excursion today. Remains on O2 at 5 to 6 liters O2 flow. Genitourinary: Not inspected. Minimal void with dialysis assist. Extremities: No edema. No clubbing or cyanosis. Integumentary: She has multiple ecchymoses, stages of healing to the upper and lower extremities and the chest wall and to her hips. Neurological: She is alert and oriented to person and to place. ASSESSMENT AND PLAN: 1. End-stage renal disease. The patient is due for her routine dialysis treatment today. We will place her on a 2-potassium bath. She is to dialyze to her outpatient treatment dry weight. 2. Electrolytes and acid-base balance. These are stable. 3. Anemia. This remains low, but stable. 4. Increased work of breathing. This is improved, though the patient's oxygenation continues to require high levels of oxygen. The patient does wear O2 of 4 liters at the alf on a normal day. We will defer to the primary care team. I would to thank you for allowing us to follow with this patient. Patient seen, data reviewed, discussed with Hiren Fitch on 12/25/16. I agree with the above assessment and plan of care. rg Dictated by KULDEEP Saul for Nash Felton MD cc: KULDEEP Saul MD [facility]
[2016-12-25] MEDS: ASPIRIN PO SCH (12:57)
[2016-12-25] MEDS: ATIVAN PO SCH ×3 (12:57→21:04)
[2016-12-25] MEDS: LASIX PO SCH (12:58)
[2016-12-25] MEDS: APRESOLINE PO SCH ×3 (12:58→21:04)
[2016-12-25] MEDS: PLAVIX PO SCH (12:58)
[2016-12-25] MEDS: COLACE PO SCH (12:58)
[2016-12-25] MEDS: PRILOSEC PO SCH ×2 (12:58→21:04)
[2016-12-25] MEDS: DEMADEX PO SCH (12:58)
[2016-12-25] MEDS: CYMBALTA PO SCH (12:58)
[2016-12-25] MEDS: TOPROL XL PO SCH (12:59)
[2016-12-25] MEDS: REGLAN PO SCH ×3 (12:59→21:04)
--- NOTE | 2016-12-25 14:14 | Diag Imaging Result Doc PS360 ---
EXAM: CHEST-PORTABLE HISTORY: dyspnea TECHNIQUE: Portable upright COMPARISON: 12/22/2016 FINDINGS: There are moderate-sized bilateral pleural effusions. There is bibasilar atelectasis. There are increased interstitial markings throughout both lungs. The patient is rotated to the left. IMPRESSION: Findings consistent with congestive failure. No interval improvement. Electronically signed by Luis Casillas 12/25/2016 2:12 PM
--- NOTE | 2016-12-25 17:20 | PROGRESS NOTE ---
DATE: 12/25/2016 SUBJECTIVE: Today, Ms. Meade referred to be doing a little better. Continues to be slightly hypoxemic. OBJECTIVE: Vital signs: Blood pressure is 147/84, pulse of 117. Respirations 16, temperature is 98.3, O2 saturation of 94, 93 on 6 L of oxygen. General: Objectively, Ms. Meade is a 66-year- old, female. She is in bed. Did not seem to be in any remarkable distress. HEENT: Mucosa is pink and moist. Anicteric. Acyanotic. Neck: Supple. Chest: Air entry was bilaterally reduced. There is dullness to percussion bilaterally in posterior lung nguyen, more so on the right than the left. Cardiovascular: Regular rate and rhythm with a few extrasystolic beats. There is about 2/6 aortic systolic murmur. Abdomen: Soft. Extremities: No pedal edema. 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 There was no focal neurological deficit. LABORATORY DATA: Has been reviewed. No CBC. Chemistry has been reviewed consistent with end- stage renal disease. ASSESSMENT: 1. Acute hypoxemic respiratory failure on presentation due to pulmonary edema and pleural effusions. The patient refers to be doing better in terms of her breathing. However, she continues to be hypoxemic, even on 6 L of oxygen. So, we will recommend thoracentesis. We have already ordered this. This will be done tomorrow first thing in the morning. 2. Acute on chronic diastolic heart failure. 3. End-stage renal disease on hemodialysis. 4. Protein calorie malnutrition. 5. Hypertension, stable. 6. Elevated troponins with negative ischemic workup. Likely due to under excretion from the renal standpoint. PLAN: So today, I think Ms. Meade is relatively stable. Continues to be hypoxemic, which I think is due to the bilateral pleural effusions. A chest x-ray was done this morning, which shows that there have not been any remarkable change in the pleural effusions, so we have ordered a thoracentesis to be done especially on the right side to relieve some of the fluids, so patient can oxygenate better. cc: Gideon Jaimes MD
[2016-12-25] MEDS: ZANAFLEX PO SCH (21:03)
[2016-12-25] MEDS: DESYREL PO SCH (21:04)
[2016-12-25] MEDS: ZOLOFT PO SCH (21:04)
[2016-12-26] MEDS: DUONEB (A & A) INH PRN ×4 (03:49→19:35)
[2016-12-26] MEDS: HEPARIN SUBQ SCH ×2 (05:35→22:01)
[2016-12-26 06:48] LABS: MANUAL DIFF NEEDED? NO
[2016-12-26 06:53] LABS: BASO% 0.6 % (0.0-0.8); HEMOGLOBIN 12.4 g/dL (12.0-16.0); IMM GRAN# 0.02 X1000 (0.0-0.04); IMM GRAN% 0.2 % (0.0-0.5); LYMPH# 0.76 X1000 (1.2-3.4); LYMPH% 7.5 % (20.5-51.1); MCH 31.9 PG (27-31); MCHC 31.8 g/dL (33-37); MCV 100.3 FL (81-99); MONO# 1.26 X1000 (0.11-0.59); MONO% 12.5 % (1.7-9.3); MPV 11.1 FL (7.4-10.4); NEUT% 78.2 % (42.2-75.2); PLT 228 X1000 (130-400); RBC 3.89 XMIL (4.2-5.4)
[2016-12-26 07:14] LABS: CALCIUM 9.9 mg/dL (8.8-10.2); POTASSIUM 4.1 mmol/L (3.5-5.1)
--- NOTE | 2016-12-26 08:14 | Extremity Venous Study ---
PROCEDURE NAME: Venous U/S Bilateral Legs - 12/24/2016 STUDY: Bilateral lower extremity venous duplex, and color flow imaging study using the [employer] Vivid E9 Ultrasound System with a 9 L-D transducer. REFERRING PHYSICIANS: Gideon Jaimes MD PATIENT PROFILE: A 66-year-old female. TRANSCRIPTIONIST: Geraldine Britton RVT ROOM: #[facility]. INDICATIONS: Shortness of breath. ICD 10; R06.02. FINDINGS: The right common femoral vein and its branches, deep and superficial femoral veins were satisfactorily imaged. They had flow through them and were compressible. Right popliteal vein and the deep veins below the right knee were all compressible and had flow through them. The superficial veins of the right lower extremity were compressible throughout their length. The left common femoral vein and its branches, deep and superficial femoral veins were also satisfactorily imaged. They had flow through them and were compressible. Left popliteal vein and the deep veins below the left knee were all compressible and had flow through them. The superficial veins of the left lower extremity were compressible throughout their length. INTERPRETATION: No evidence of acute deep or superficial venous thrombosis of the bilateral lower extremities. cc: MD Gideon Link MD
--- NOTE | 2016-12-26 09:07 | PROGRESS NOTE ---
DATE: 12/26/2016 SUBJECTIVE: Her shortness of breath is improved. She has plans for thoracentesis today. No nausea or vomiting. Appetite remains low. OBJECTIVE: Vital Signs: Blood pressure 149/69, heart rate 103, respirations 20, afebrile. General: She is in no acute distress. Chronically ill appearing. Skin: Warm and dry. Conjunctivae are pink. Neck: Neck veins are not distended. Trachea is midline. Heart: Irregular with a murmur. Lungs: Have equal breath sounds. No crackles or wheezes. Abdomen: Soft, nontender. Bowel sounds are present. Extremities: Have no edema, clubbing, or cyanosis. IMAGING: Chest x-ray performed on the with ongoing moderate-size bilateral pleural effusions. LABORATORY DATA: Sodium 138, potassium 4.1, chloride 95, bicarbonate 28, BUN 37, creatinine 3.5, hemoglobin 12.4. IMPRESSION: 1. Volume overload. Progressive improvement since admission. 2. Thoracentesis today. 3. Electrolytes/acid base/anemia/hypertension all within target. cc: Nash Felton MD
--- NOTE | 2016-12-26 10:32 | Diag Imaging Result Doc PS360 ---
CHEST-2 VIEWS - 12/26/2016 INDICATION: POST THORA TECHNIQUE: COMPARISON: 12/25/2016 FINDINGS: There has been bilateral thoracentesis of significant quantities of pleural fluid. Indeed the fluid is nearly completely gone. There is a small amount of pleural air bilaterally, about 25% on the right and 10% on the left. However this is a good result given the large amount of fluid drained. IMPRESSION: The lungs are not completely reexpanded yet given the large amount of pleural fluid drained bilaterally. Recommend a repeat inspiration expiration chest x-ray in about four hours, at about 3:00 PM. Electronically signed by Hima Addison 12/26/2016 10:30 AM
--- NOTE | 2016-12-26 10:47 | Diag Imaging Result Doc PS360 ---
Ultrasound-guided right thoracentesis, ultrasound-guided left thoracentesis - 12/26/2016 INDICATION: symptomatic bilateral pleural effusion TECHNIQUE: The risks and benefits of the procedure were discussed with the patient. All questions were answered. Written and verbal informed consent was obtained. Overlying skin was prepped and draped in sterile fashion. Anesthesia was achieved with injection of 10 cc of 1% lidocaine, performed bilaterally. COMPARISON: None FINDINGS: There was a very large right and moderate to large left pleural effusion. 1.3 L was removed from the right side. 1 L was removed from the left side. The patient reported no significant symptoms from the procedure. IMPRESSION: Successful and uncomplicated ultrasound-guided bilateral thoracentesis. Electronically signed by Hima Addison 12/26/2016 10:45 AM
[2016-12-26] MEDS: RENAGEL PO SCH ×3 (10:49→16:09)
[2016-12-26 11:02] LABS: TOTAL PROT BODY FLUID 2.7 g/dL
[2016-12-26] MEDS: ASPIRIN PO SCH (11:14)
[2016-12-26] MEDS: ATIVAN PO SCH ×3 (11:14→22:02)
[2016-12-26] MEDS: PRILOSEC PO SCH ×2 (11:14→22:01)
[2016-12-26] MEDS: REGLAN PO SCH ×3 (11:14→22:02)
[2016-12-26] MEDS: TOPROL XL PO SCH (11:15)
[2016-12-26] MEDS: PLAVIX PO SCH (11:15)
[2016-12-26] MEDS: DEMADEX PO SCH (11:15)
[2016-12-26] MEDS: COLACE PO SCH (11:15)
[2016-12-26] MEDS: LASIX PO SCH (11:15)
[2016-12-26] MEDS: CYMBALTA PO SCH (11:15)
[2016-12-26] MEDS: APRESOLINE PO SCH ×2 (11:15→16:09)
[2016-12-26 12:43] LABS: DIFF NEEDED? YES; WBC BF 211 /cumm
[2016-12-26 12:50] LABS: POLYS 20 %
[2016-12-26 12:51] LABS: MONOS 80 %
[2016-12-26 12:52] LABS: SPECIMEN PLEURAL FLUID
--- NOTE | 2016-12-26 13:23 | PROGRESS NOTE ---
DATE: 12/26/2016 Today Ms. Meade referred to be doing better. According to her, be breathing is a whole lot better this morning. OBJECTIVE: Vital signs: Blood pressure is 94/68, pulse of 105, respiration is 20, temperature is 98 degrees. The patient was saturating 98% on 6 L. Objectively: Ms. Meade is a 66-year-old elderly female, she is in bed, not seemingly distressed. HEENT: Mucosa is pink and moist. Anicteric. Acyanotic. Neck: Supple. Chest: Good air entry bilaterally. No crepitations. There is some dullness to palpation. Cardiovascular: Regular rate and rhythm. A few extrasystolic beats. There is a 2/6 aortic systolic murmur. Abdomen: Soft. Extremities: No pedal edema. APPLICATION ANALYST: Patient is awake and alert and oriented x4. There is no focal neurological deficit LABORATORY DATA: Lab work has been reviewed. Nothing very impressing. Patient is status post thoracentesis, 1.3 L was removed from the right lung and 1 L was removed from the left. Subsequent chest x-ray shows small bilateral pneumothorax. ASSESSMENT: 1. Acute hypoxemic respiratory failure on presentation due to pulmonary edema and pleural effusions. This has improved both with dialysis and today there has been a thoracentesis done. 2. Mild bilateral pneumothorax secondary to thoracentesis. We are going to repeat a chest x-ray in about 4 hours and follow up on the resolution. 3. Endstage renal disease on hemodialysis. 4. Acute on chronic diastolic heart failure stable. 5. Protein calorie malnutrition noted. 6. Hypertension controlled. 7. Elevated troponin on presentation with negative ischemic workup. Likely due to under excretion from the kidneys. So today Ms. Meade is a whole lot better. Breathing has improved. She had the thoracentesis today by IR. Unfortunately she developed mild bilateral pneumothorax. We are going to repeat a chest x- ray in 4 hours and tomorrow morning if she is relatively stable without any worsening in the pneumothorax then we will be able to discharge her tomorrow. cc: Gideon Jaimes MD [facility]
--- NOTE | 2016-12-26 15:09 | Diag Imaging Result Doc PS360 ---
EXAM: CHEST-PORTABLE HISTORY: dyspnea TECHNIQUE: AP upright sitting at 1410 COMMENT: There are bilateral pneumothoraces. Some residual pleural fluid is present on the right. This was also present at the time the previous study of 1025. There is slightly increased alveolar opacity in the left upper lobe. Both the pneumothoraces appear to be stable or improved. IMPRESSION: Bilateral pleural effusions, pneumothoraces and atelectasis. Electronically signed by Angelo Ford 12/26/2016 3:07 PM
[2016-12-26] MEDS: TYLENOL PO PRN (16:09)
[2016-12-26] MEDS: MORPHINE IV PRN (22:00)
[2016-12-26] MEDS: ZANAFLEX PO SCH (22:01)
[2016-12-26] MEDS: DESYREL PO SCH (22:02)
[2016-12-26] MEDS: ZOLOFT PO SCH (22:02)
[2016-12-27] MEDS: APRESOLINE PO SCH ×4 (02:45→17:45)
[2016-12-27] MEDS: DUONEB (A & A) INH PRN ×3 (04:02→19:39)
[2016-12-27] MEDS ORDERED: NS 2,000 ML ONE (06:27)
[2016-12-27] MEDS ORDERED: HEPARIN ONE (06:27)
[2016-12-27] MEDS: MORPHINE IV PRN ×3 (06:35→20:34)
--- NOTE | 2016-12-27 07:18 | Diag Imaging Result Doc PS360 ---
EXAM: CHEST-PORTABLE HISTORY: dyspnea TECHNIQUE: AP portable at 0500 COMMENT: There is some reaccumulation of pleural fluid in the right pleural space compared to the previous study of 12/26/2016. The same may be true on the left side. There is residual pneumothorax but this has also decreased slightly bilaterally since the previous study. There continues to be increased density in all lobes but particularly in the lower lobes and particularly the left lower lobe. IMPRESSION: Bilateral hydropneumothorax. Pulmonary edema and/or pneumonia with atelectasis particularly in the left lower lobe. Electronically signed by Angelo Ford 12/27/2016 7:15 AM
[2016-12-27 07:48] LABS: CALCIUM 9.4 mg/dL (8.8-10.2); POTASSIUM 4.1 mmol/L (3.5-5.1)
[2016-12-27] MEDS: RENAGEL PO SCH ×3 (08:15→17:44)
[2016-12-27] MEDS: DEMADEX PO SCH ×2 (08:19→11:31)
[2016-12-27] MEDS: ASPIRIN PO SCH ×2 (08:19→11:31)
[2016-12-27] MEDS: HEPARIN SUBQ SCH ×3 (08:19→20:35)
[2016-12-27] MEDS: ATIVAN PO SCH ×4 (08:19→17:44)
[2016-12-27] MEDS: COLACE PO SCH ×2 (08:19→11:33)
[2016-12-27] MEDS: CYMBALTA PO SCH ×2 (08:19→11:32)
[2016-12-27] MEDS: PLAVIX PO SCH ×2 (08:20→11:32)
[2016-12-27] MEDS: LASIX PO SCH ×2 (08:20→11:31)
[2016-12-27] MEDS: PRILOSEC PO SCH ×3 (08:20→20:35)
[2016-12-27] MEDS: TOPROL XL PO SCH ×2 (08:20→11:33)
[2016-12-27] MEDS: REGLAN PO SCH ×3 (08:20→17:45)
[2016-12-27] MEDS ORDERED: NS 2,000 ML MISC PRN (09:40)
--- NOTE | 2016-12-27 14:13 | PROGRESS NOTE ---
DATE: 12/27/2016 SUBJECTIVE: She had bilateral thoracenteses yesterday. By her report, she had a total of around 3.5 L of volume removed. This is not recorded on the ins and outs. Shortness of breath, she states, is some better, but still requires oxygen. OBJECTIVE: VITAL SIGNS: Blood pressure 143/69, heart rate 95, respirations 16, afebrile. GENERAL: Cachectic woman in no distress. SKIN: Warm and dry. HEENT: Conjunctivae are pink. NECK: Veins are not visible. HEART: Regular, with systolic murmur present. LUNGS: Equal breath sounds. No crackles. ABDOMEN: Soft, nontender. Bowel sounds are present. EXTREMITIES: Have no edema, clubbing, or cyanosis. IMPRESSIONS: 1. End-stage kidney disease. Volume overload. She has no edema by exam and normal neck veins. Her chest x-ray still has evidence of pulmonary edema following her thoracenteses. We have adjusted her dry weight downward and her blood pressure will not tolerate more aggressive volume removal at this time. 2. Nutrition. She is still eating poorly. She is on duloxetine and sertraline. She also has trazodone. Perhaps changing these medications to mirtazapine would help her appetite. I will defer that decision to the primary care because I am not sure if there are other goals related to these medications that I am not aware of. 3. Hypertension in target. 4. Electrolytes/acid base/anemia all in target. cc: Nash Felton MD
--- NOTE | 2016-12-27 14:16 | PROGRESS NOTE ---
DATE: 12/27/2016 SUBJECTIVE: Today Ms. Meade refers to be doing fine. She did have mild epigastric to periumbilical discomfort. No vomiting, no diarrhea. OBJECTIVE: Vital signs: Blood pressure is 143/69, pulse is 93, respirations 16 , temperature 97.9 degrees. General: Ms. Meade 66-year-old elderly female. She is in bed, does not seem to be in any distress. HEENT: Mucosa is pink and moist. Anicteric. Acyanotic. Neck: Supple. Chest: Good air entry bilateral. There is a few bibasilar crepitations. Cardiovascular: Regular rate and rhythm. There is a 2/6 aortic systolic murmur radiating to carotid. Abdomen: Soft. Mildly tender around the periumbilical, suspicion for a mild ventral hernia. There is an old pain pump on the left flank to lower quadrant laterally. 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 There is no focal neurological deficit. LABORATORY DATA: Chemistries reviewed, consistent with end-stage renal disease. A chest x-ray done this morning shows bilateral hydropneumothorax, pulmonary edema and/or pneumonia with atelectasis particularly in the left lower lobe. ASSESSMENT: 1. Acute hypoxemic respiratory failure on presentation due to pulmonary edema and pleural effusion improved. 2. Mild bilateral pneumothorax secondary to thoracentesis, follow up x-ray shows some minimum improvement. 3. End-stage renal disease on hemodialysis. 4. Acute on chronic diastolic heart failure stable. 5. Hypertension controlled. PLAN: Ms. Meade is doing fine. We are going to repeat a chest x-ray tomorrow morning just to follow up on the pneumothorax. We plan to discharge Ms Meade back to [facility] on Thursday. cc: Gideon Jaimes MD MTDD
[2016-12-27] MEDS: ZANAFLEX PO SCH (20:35)
[2016-12-27] MEDS: ZOLOFT PO SCH (20:35)
[2016-12-27] MEDS: DESYREL PO SCH (20:35)
[2016-12-28] MEDS: DUONEB (A & A) INH PRN ×3 (03:44→15:33)
[2016-12-28] MEDS: MORPHINE IV PRN ×5 (04:11→22:07)
[2016-12-28] MEDS: CYMBALTA PO SCH (09:07)
[2016-12-28] MEDS: PRILOSEC PO SCH ×2 (09:07→21:41)
[2016-12-28] MEDS: PLAVIX PO SCH (09:08)
[2016-12-28] MEDS: RENAGEL PO SCH ×3 (09:08→18:04)
[2016-12-28] MEDS: COLACE PO SCH (09:08)
[2016-12-28] MEDS: ASPIRIN PO SCH (09:08)
[2016-12-28] MEDS: APRESOLINE PO SCH ×3 (09:08→18:04)
[2016-12-28] MEDS: TOPROL XL PO SCH (09:08)
[2016-12-28] MEDS: ATIVAN PO SCH ×3 (09:08→18:05)
[2016-12-28] MEDS: REGLAN PO SCH ×3 (09:08→18:04)
[2016-12-28] MEDS: DEMADEX PO SCH (09:08)
[2016-12-28] MEDS: HEPARIN SUBQ SCH ×2 (09:09→21:41)
[2016-12-28] MEDS: LASIX PO SCH (09:09)
--- NOTE | 2016-12-28 15:03 | PROGRESS NOTE ---
DATE: 12/28/2016 SUBJECTIVE: Ms. Meade today refers to be doing a lot better. Denies any more shortness of breath. OBJECTIVE: Vital signs: Vitals are stable. Blood pressure is 104/54, pulse is 118, respirations 16, temperature 97.8 degrees. General appearance: Ms. Meade is a 66-year-old female. She is in bed, no distress. HEENT: Mucosa is pink and moist. Anicteric. Acyanotic. Neck: Supple. Chest: Air entry is bilaterally reduced. There is some dullness to percussion to posterior lung nguyen. Cardiovascular: Regular rate and rhythm. About a 2/6 aortic systolic murmur radiating to the carotid. Abdomen: Soft, nontender. There is an old pain pump to the left flank. Central nervous system: The patient is awake, alert and oriented x4. No focal neurological deficit. LABORATORY DATA: No lab work for today. ASSESSMENT: 1. Acute hypoxemic respiratory failure on presentation due to pulmonary edema and pleural effusions, improved. 2. Bilateral pleural effusion, status post thoracentesis. 3. Mild bilateral pneumothorax resulting from the thoracentesis. Subsequent x-rays have been unremarkable. We will repeat an x-ray tomorrow. 4. End stage renal disease, on hemodialysis. 5. [id number] diastolic heart failure. 6. Hypertension, controlled. In general, Ms. Meade seems to be relatively stable. We are going to do a chest x-ray tomorrow morning to follow up on the pneumothorax. If it is stable, has not worsened, we will discharge the patient to her rehabilitation. From a fluid standpoint, I think she is now euvolemic as she can be, and she is not more symptomatic. cc: Gideon Jaimes MD
[2016-12-28] MEDS: ZANAFLEX PO SCH (21:41)
[2016-12-28] MEDS: DESYREL PO SCH (21:41)
[2016-12-28] MEDS: ZOLOFT PO SCH (21:41)
[2016-12-29 07:15] LABS: MANUAL DIFF NEEDED? NO
--- NOTE | 2016-12-29 07:19 | Diag Imaging Result Doc PS360 ---
EXAM: CHEST-PORTABLE HISTORY: dyspnea TECHNIQUE: AP portable at 0500 COMMENT: There are bilateral pleural effusions. The pneumothoraces have nearly completely resolved. The heart size remains enlarged and there is diffuse pulmonary edema. IMPRESSION: Pulmonary edema and bilateral pleural effusions. Electronically signed by Angelo Ford 12/29/2016 7:17 AM
[2016-12-29 07:25] LABS: BASO% 0.7 % (0.0-0.8); EOS# 0.37 X1000 (0.0-0.7); EOS% 3.3 % (0.0-10.0); HEMATOCRIT 38.6 % (37.0-47.0); HEMOGLOBIN 11.9 g/dL (12.0-16.0); IMM GRAN# 0.03 X1000 (0.0-0.04); IMM GRAN% 0.3 % (0.0-0.5); LYMPH# 0.93 X1000 (1.2-3.4); LYMPH% 8.2 % (20.5-51.1); MCH 31.3 PG (27-31); MCHC 30.8 g/dL (33-37); MCV 101.6 FL (81-99); MONO# 1.15 X1000 (0.11-0.59); MONO% 10.2 % (1.7-9.3); MPV 11.7 FL (7.4-10.4); NEUT% 77.3 % (42.2-75.2); PLT 232 X1000 (130-400)
[2016-12-29] MEDS: DUONEB (A & A) INH PRN (07:41)
[2016-12-29 07:44] LABS: CALCIUM 9.9 mg/dL (8.8-10.2); POTASSIUM 4.8 mmol/L (3.5-5.1)
[2016-12-29] MEDS ORDERED: TIGHT: 0.2 ML/HR MISC PRN (07:59)
[2016-12-29] MEDS ORDERED: HEPARIN IV PRN (07:59)
[2016-12-29] MEDS ORDERED: NS 2,000 ML MISC PRN (07:59)
--- NOTE | 2016-12-29 10:18 | PROGRESS NOTE ---
DATE: 12/29/2016 SUBJECTIVE: Patient currently undergoing hemodialysis. She is somewhat lethargic, but will rouse to verbal and tactile stimuli. OBJECTIVE: Vital signs: Temperature 97.9, pulse 92, respiratory rate 14, blood pressure 107/52. Intake 1.4 L, output was not measured. She has hemodialysis assist. General: This is a chronically ill-appearing, cachectic female, resting in bed. She is somewhat lethargic, but is in no acute distress. HEENT: Normocephalic, atraumatic. Oral mucosa moist. MICKY. Conjunctivae pink. Neck: Supple. Positive JVD, reclined. Cardiovascular: Regular rate and rhythm with a systolic murmur noted. Pulmonary: She has equal breath sounds. She is decreased to the bases with some scattered rhonchi noted. Abdomen: Soft, flat. Positive bowel sounds. : Not inspected. Extremities: No clubbing, cyanosis, or edema. Integumentary: Skin is thin. Ecchymoses noted to bilateral upper extremities. LABORATORY DATA: WBC of 11.3, hemoglobin 11.9. Sodium 136, potassium 4.8, CO2 of 26, BUN 51, creatinine 5.0. IMAGING: Chest x-ray this morning showed pulmonary edema with pleural effusion. ASSESSMENT AND PLAN: 1. End-stage renal disease management with fluid volume overload. She has already had a thoracentesis while she was in the hospital. Chest x-ray indicates she still has fluid. Her blood pressure has been marginal. We will attempt to lower dry weight, but this will likely be hampered secondary to her blood pressures. 2. Electrolytes, acid-base balance. These are acceptable. She is on a 2- potassium bath. 3. Fluid volume. See above for plan. 4. Blood pressure marginal. Dictated by KULDEEP Kessler for Nash Felton MD Patient seen, data reviewed, discussed with Xi Dodd on 12/29/16. I agree with the above assessment and plan of care. cc: Nash Felton MD [facility]
[2016-12-29 14:21] VITALS: BP 129/112
[2016-12-29] MEDS: RENAGEL PO SCH (14:24)
[2016-12-29] MEDS: ATIVAN PO SCH (14:24)
[2016-12-29] MEDS: PRILOSEC PO SCH (14:25)
[2016-12-29] MEDS: LASIX PO SCH (14:25)
[2016-12-29] MEDS: APRESOLINE PO SCH (14:25)
[2016-12-29] MEDS: COLACE PO SCH (14:26)
[2016-12-29] MEDS: DEMADEX PO SCH (14:26)
[2016-12-29] MEDS: ASPIRIN PO SCH (14:26)
[2016-12-29] MEDS: TOPROL XL PO SCH (14:26)
[2016-12-29] MEDS: PLAVIX PO SCH (14:26)
[2016-12-29] MEDS: HEPARIN SUBQ SCH (14:27)
[2016-12-29] MEDS: CYMBALTA PO SCH (14:30)
--- NOTE | 2016-12-29 16:25 | DISCHARGE SUMMARY ---
ADMISSION DATE: 12/22/2016 DISCHARGE DATE: 12/29/2016 CONSULTATIONS: 1. Dr. Felton with Neurology. 2. Dr. Durbin with Cardiology. PERTINENT PROCEDURES: 1. Echocardiogram showed mild aortic stenosis with mild aortic regurgitation. Mild mitral regurgitation. Mild pulmonary hypertension. EF of 55%. Bilateral pleural effusions with a large left pleural effusion evident. 2. Myocardial perfusion scan over a 2-day stress rest. It did not demonstrate any clear evidence of ischemic related EKG changes or significant arrhythmias. It did demonstrate 2 separate defects. The 1st defect was a small size mild intensity fixed defect located in the inferior lateral mid and inferior lateral base. Second defect is small size mild intensity fixed defect in the mid anterior septal. No evidence of ischemic changes on this study. Reduced EF of 46% on the rest and 42% on the stress. Mild global hypokinesis. 3. Bilateral lower extremity Doppler showed no evidence of acute deep or superficial venous thrombosis. 4. Ultrasound-guided left thoracentesis. They removed 1.3 L on the right and 1 L removed from the left. DISCHARGE DIAGNOSES: 1. Acute hypoxemic respiratory failure on presentation due to pulmonary edema and pleural effusions. Improved with hemodialysis and bilateral thoracentesis. 2. End-stage renal disease with fluid volume overload. Managed by Nephrology. The patient has been on hemodialysis as well as bilateral thoracentesis. 3. Bilateral pleural effusions. Status post bilateral thoracentesis. 4. Mild bilateral pneumothorax resulting from a thoracentesis. Subsequent x-rays have been unremarkable. 5. Acute on chronic diastolic heart failure. Stable. 6. Hypertension controlled. HOSPITAL COURSE: Ms. Meade is a 66-year-old, female, who carries a past medical history of end-stage renal disease with Thursday, , Thursday dialysis. She states that she has not missed any prior treatments. She came to the ED from the alf in respiratory distress. She had to be placed on BiPAP. O2 saturations were in the 60s on arrival. Chest x-ray obtained that showed bilateral pleural effusions right greater than left. She required thoracentesis in the past. She was admitted to the ICU in acute respiratory failure secondary to fluid volume overload. She was given IV Lasix in the ED. The patient does still make urine. She was given additional 80 mg for diuresis and a Nichols catheter was placed for strict I Os. She was continued on BiPAP. A consult for nephrology was placed to continue with hemodialysis. The patient did have elevated troponins. With the mention of mild chest pain her cardiac enzymes were trended. She did undergo an echocardiogram as well as 2-day resting stress test with Cardiology. She remained a DNR level 1. Her bilateral lower extremity Dopplers were negative for any deep or superficial venous thrombosis. She underwent bilateral thoracentesis and they were able to removal 0.3 L out of the right and 1 L out of the left. She was continued on her regular scheduled dialysis. There was no significant evidence of ischemia on her stress test. After her thoracentesis, she did develop a mild bilateral pneumothorax. However, her breathing did improve. Her pneumothoraces have nearly completely resolved on her final chest x-ray. She is still showing some pulmonary edema and bilateral pleural effusion. She will undergo hemodialysis today and after that she will be appropriate for discharge back to rehab on 3 L nasal cannula and continued p.o. diuresis as well as her scheduled hemodialysis. VITAL SIGNS: Temperature 97.9 degrees, heart rate 94, respirations 14, blood pressure is 107/52. O2 is 100% on room air. DISCHARGE DIET: Diabetic. DISCHARGE MEDICATIONS: As per Dr. Jaimes. Please see MAR. DISPOSITION: Ms. Meade is being discharged back to [facility]. She will continue on her regular scheduled hemodialysis. DISCHARGE INSTRUCTIONS: She will be discharged back to [facility] rehab where she will continue on her regular scheduled hemodialysis. She will returned to the ED for any worsening of symptoms. DISCHARGE TIME: Thirty minutes. Dictated by KULDEEP Eden for Gideon Jaimes MD cc: Gideon Jaimes MD
== END 2016-12-29 14:34 ==
LOC: ED 22:47 → SUATTDRO 12-22 00:57 → ICU 12-22 00:57 → 3N 12-23 18:47
PROVIDERS: ATTEND Internal Medicine

== ENCOUNTER 2016-12-31 12:41 | Inpatient (IN) ==
[2016-12-31] MEDS ORDERED: ASPIRIN PO STA (12:52)
--- NOTE | 2016-12-31 13:20 | Diag Imaging Result Doc PS360 ---
EXAM: CHEST-PORTABLE HISTORY: dyspnea TECHNIQUE: AP portable erect at 1311 COMMENT: There are bilateral pleural effusions. There is cardiomegaly. There is hazy opacity over both lower lung nguyen which is probably due to pulmonary edema. Compared to the previous study of 12/29/2016 the pleural fluid volume on the right appears to have diminished somewhat. There may be some improvement in the pulmonary edema particularly in the right upper lobe. IMPRESSION: Improved pulmonary edema and right pleural effusion. Electronically signed by Angelo Ford 12/31/2016 1:17 PM
[2016-12-31] MEDS ORDERED: NS 2,000 ML ONE (13:55)
[2016-12-31] MEDS ORDERED: HEPARIN ONE (13:55)
[2016-12-31 14:00] LABS: EOS# 0.29 X1000 (0.0-0.7); EOS% 2.6 % (0.0-10.0); HEMATOCRIT 35.7 % (37.0-47.0); IMM GRAN# 0.04 X1000 (0.0-0.04); IMM GRAN% 0.4 % (0.0-0.5); LYMPH# 1.26 X1000 (1.2-3.4); LYMPH% 11.4 % (20.5-51.1); MANUAL DIFF NEEDED? NO; MCH 31.4 PG (27-31); MCHC 30.8 g/dL (33-37); MONO# 1.87 X1000 (0.11-0.59); MONO% 16.9 % (1.7-9.3); MPV 11.3 FL (7.4-10.4); NEUT% 67.7 % (42.2-75.2); PLT 233 X1000 (130-400)
[2016-12-31] MEDS ORDERED: NS 2,000 ML MISC PRN (14:37)
[2016-12-31] MEDS ORDERED: HEPARIN IV PRN (14:37)
[2016-12-31] MEDS ORDERED: TIGHT: 0.2 ML/HR MISC PRN (14:37)
--- NOTE | 2016-12-31 14:40 | PROVIDER DOCUMENTATION ---
This chart was entered by Chavez Barrow Scribe, acting as scribe for Candelario Laguna MD. HPI-Chest Pain - General Stated Complaint: CP/SOB Time Seen by Provider: 12/31/16 12:51 Source: patient, EMS, correction records Allergies/Adverse Reactions: Patient Allergies Allergy/AdvReac Type Severity Reaction Status Date / Time adhesive tape Allergy Unknown Verified 12/22/16 00:21 scopolamine Allergy NAUSEA/VOMI Verified 12/22/16 00:21 TING Opioids-Methadone and Related AdvReac Unknown Verified 12/22/16 00:21 oxycodone AdvReac pt request Verified 12/22/16 00:21 not to have Home Medications: Home Medication List Medication Instructions Recorded Confirmed Last Taken Type Tizanidine HCl [Zanaflex] 4 mg PO HS 04/10/15 12/31/16 12/30/16 20:00 History Trazodone [Desyrel] 100 mg PO QHS 04/10/15 12/31/16 12/30/16 20:00 History Sertraline [Zoloft] 50 mg PO HS 08/13/15 12/31/16 12/30/16 20:00 History Duloxetine [Cymbalta] 30 mg PO DAILY 08/08/16 12/31/16 12/31/16 08:00 History Hydralazine [Apresoline] 50 mg PO TID 08/08/16 12/31/16 12/31/16 08:00 History Aspirin 81 mg PO DAILY #0 08/22/16 12/31/16 12/31/16 08:00 Rx Clopidogrel Bisulfate [Plavix] 75 mg PO QAM #0 08/22/16 12/31/16 12/31/16 08: 00 Rx Metoclopramide HCl [Reglan] 2.5 mg PO TID 10/02/16 12/31/16 12/31/16 06:00 History Docusate Sodium 100 mg PO DAILY 11/18/16 12/31/16 12/30/16 09:00 History Furosemide 40 mg PO DAILY 11/18/16 12/31/16 12/31/16 08:00 History 80 mg Ipratropium/Albuterol Sulfate 3 ml IH Q4H PRN 11/18/16 12/31/16 12/21/16 History [Iprat-Albut 0.5-3(2.5) mg/3 ml] Lorazepam [Ativan] 0.5 mg PO TID 11/18/16 12/31/16 12/31/16 05:00 History Metoprolol Succinate E.r. [Toprol 25 mg PO DAILY 11/18/16 12/31/16 12/31/16 09: 00 History Xl] Ondansetron [Zofran] 4 mg PO TID 11/18/16 12/31/16 12/31/16 05:00 History Sevelamer Carbonate [Renvela] 1,600 mg PO TID 11/18/16 12/31/16 12/21/16 History Omeprazole [Prilosec] 40 mg PO DAILY 12/31/16 12/31/16 Unknown History - History of Present Illness-CP Nature of Presenting Problem: patient is a 66 y/o F that presents to the ER with chest pain and shortness of breath. Unknown when symptoms began. patient was recently d/c from hospital for bilateral pleural effusions and had thoracentisis. patient's history and HPI ROS is limited due to patient being a poor historian. Location: reports: central Quality of Pain: reports: dull Severity in ED: mild Onset/Duration: unsure Timing: still present, constant Context/Activities at Onset: reports: none Modifying Factors: improves with: nothing Associated Symptoms: reports: shortness of breath. denies: fever/chills, headache, nausea, vomiting Nitro Today/Relief: no nitro taken today Aspirin Treatment Today: 325 mg x 1, provided by ED Prior Chest Pain/Cardiac Workup: reports: angina Similar Symptoms Previously?: Yes Recently Seen Here or By Another Healthcare Provider: Yes Review of Systems - Adult - REVIEW OF SYSTEMS - ADULT ROS:: limited per condition Constitutional: denies: chills, fever Eyes: reports: no symptoms reported Ears, Nose, Mouth & Throat: reports: no symptoms reported Cardiovascular: reports: chest pain. denies: palpitations, syncope Respiratory: reports: shortness of breath. denies: cough, wheezing Gastrointestinal: denies: abdominal pain, diarrhea, nausea Genitourinary: reports: no symptoms reported Musculoskeletal: denies: back pain, joint pain, neck pain Integumentary: reports: no symptoms reported Neurological: reports: no symptoms reported Psychiatric: reports: no symptoms reported Endocrine: reports: no symptoms reported Hematologic/Lymphatic: reports: no symptoms reported Allergic/Immunologic: reports: no symptoms reported All Other Systems: Reviewed and Negative Past History - Adult - PAST MEDICAL HISTORY-ADULT Review of Records: reports: Old Records Reviewed, Nursing Assessment Review, Medications Reviewed Cardiovascular: reports: CAD, HTN, NM Gastrointestinal: reports: GERD, other (colon) Genitourinary: reports: ESRD Musculoskeletal: reports: chronic pain (back) Psychiatric: reports: anxiety Endocrine/Immune: reports: Diabetes - PRIOR SURGERIES/PROCEDURES Surgical/Procedure History: reports: cardiac stent (8), back/neck (back) - IMMUNIZATION STATUS Childhood Immunizations: See Nurse Assessment Flu Vaccine: See Nurse Assessment - FAMILY HISTORY Family History: reviewed, not pertinent - SOCIAL HISTORY Smoking: quit greater than 1 year, cigarettes Living Situation: family Physical Exam-General - PHYSICAL EXAM-ADULT Initial Vital Signs Reviewed: Yes - CONSTITUTIONAL General Appearance: alert, no apparent distress - EYES Eyes: PERRL/EOMI, pink conjunctivae - HEAD, EARS, NOSE, MOUTH & THROAT HENMT: normocephalic/atraumatic, moist mucous membranes, normal ENT inspection - NECK Neck: full range of motion, normal inspection - RESPIRATORY Respiratory: chest non-tender, no respiratory distress, no accessory muscle use , rales (left sided) - CARDIOVASCULAR Cardiovascular: regular rate, rhythm, no edema, no murmur - GASTROINTESTINAL (ABDOMEN) Abdominal Exam: normal bowel sounds, non tender, soft - MUSCULOSKELETAL Extremity: normal inspection, no pedal edema - SKIN Integumentary: normal color, warm/dry - NEUROLOGIC Neurologic: wrapper stripper II-XII nml as tested, no motor/sensory deficits - PSYCHIATRIC Psych/Mental Status: other (to her normal baseline) Progress - PLAN OF CARE/RESULTS Progress/Plan/Lab Results: Vital Signs - 8 hr 12/31/16 12:45 12/31/16 13:22 Temperature 97.4 F L Pulse Rate 73 73 Respiratory Rate 29 H 23 Blood Pressure 116/58 116/58 O2 Sat by Pulse Oximetry 74 L 100 Laboratory Results - last 24 hr 12/31/16 12/31/16 12/31/16 12:50 12:50 13:10 WBC 11.07 H RBC 3.50 L Hgb 11.0 L Hct 35.7 L MCV 102.0 H MCH 31.4 H MCHC 30.8 L RDW Std Deviation 14.0 Plt Count 233 MPV 11.3 H Immature Gran % (Auto) 0.4 Neut % (Auto) 67.7 Lymph % (Auto) 11.4 L [place] % (Auto) 16.9 H Eos % (Auto) 2.6 Baso % (Auto) 1.0 H Immature Gran # (Auto) 0.04 Neut # (Auto) 7.50 H Lymph # (Auto) 1.26 [place] # (Auto) 1.87 H Eos # (Auto) 0.29 Baso # (Auto) 0.11 Troponin T 0.430 H* Tan-K-Xfhtjiytanx Pept > 26098 H Orders Category Date Time Status Cardiac Monitoring DIRECTED Care 12/31/16 12:52 Active Dialysate Bath: DIRECTED Care 12/31/16 14:37 Ordered Dialysate Flow: DIRECTED Care 12/31/16 14:37 Ordered Dialysis Blood Flow: DIRECTED Care 12/31/16 14:37 Ordered Dialysis Machine Settings: DIRECTED Care 12/31/16 14:37 Ordered Dialysis Treatment Time: DIRECTED Care 12/31/16 14:37 Ordered Dialysis Treatment Weight ROUTINE Care 12/31/16 14:37 Ordered Dialysis UF Removal Amount: DIRECTED Care 12/31/16 14:37 Ordered Dialyzer Type: DIRECTED Care 12/31/16 14:37 Ordered NRSG - Obtain Dialysis Consent NOW Care 12/31/16 14:37 Ordered Oxygen Therapy- ED Nursing DIRECTED Care 12/31/16 12:52 Active Saline Loc NOW Care 12/31/16 12:52 Active CHEST-PORTABLE [RAD] Stat Exams 12/31/16 12:53 Completed CBC WITH ELECTRONIC DIFF [HEME] Stat Lab 12/31/16 13:10 Completed CK PROFILE [SP CHEM] Stat Lab 12/31/16 12:50 Ordered COMPREHENSIVE METABOLIC PANEL [CHEM] Stat Lab 12/31/16 12:50 Ordered MAGNESIUM [CHEM] Stat Lab 12/31/16 12:50 Ordered PRO B-NATRIURETIC PEPTIDE Stat Lab 12/31/16 12:50 Completed PROTIME WITH INR [COAG] Stat Lab 12/31/16 12:50 Ordered PTT [COAG] Stat Lab 12/31/16 12:50 Ordered TROPONIN T Stat Lab 12/31/16 12:50 Completed 0.9% Sodium Chloride Inj [Ns] 2,000 ml Med 12/31/16 13:55 Discontinued .ROUTE As Directed 0.9% Sodium Chloride Inj [Ns] 2,000 ml Med 12/31/16 14:37 Ordered MISC As Directed Aspirin Med 12/31/16 12:52 Discontinued 325 mg PO STAT STA Heparin Med 12/31/16 14:37 Ordered 1,000 unit IV BOLUS PRN Heparin Med 12/31/16 13:55 Discontinued 10,000 unit .ROUTE .STK-MED ONE Heparin 1000 Units/ml [Tight: 0.2 ml/Hr] Med 12/31/16 14:37 Ordered 1 each MISC DIRECTED PRN EKG [EKG] Stat Ther 12/31/16 12:52 Ordered Result Diagrams: 12/31/16 13:10 - EKG 1 Time of EKG reading by physician:: 12:48 EKG Read and Signed by:: Candelario Laguna EKG Interpretation (*Must complete 3 of following elements*): Normal Rate: 78 Rhythm: NSR [place]: normal QRS: normal SC Interval: normal ST Wave: normal - XRAY 1 XRAY Study: Chest Impression: Abnormal (improved pulmonary edema and r pleural effusion) Departure - Departure Date of Disposition Decision: 12/31/16 Time of Disposition Decision: 14:38 DIAGNOSIS: Pleural effusion due to CHF (congestive heart failure), ESRD (end stage renal disease) on dialysis, Dyspnea Disposition: ADMITTED INPATIENT 09 Certified Medical Emergency: Emergent Condition: Critical Referrals and Follow-Ups: None,PCP [Primary Care Provider] - - Critical Care Note This patient required my direct & personal management of CC.: Yes Total Time (mins): 60 Critical Care Statement: This patient required my direct personal management to treat or rule out processes, the absence of which, could potentiallly result in sudden, clinically significant life or limb threatening deterioration. Attestation - Physician/ ARMOND Attestation The physician spent face to face time with patient:: Yes Advanced Practice Provider documentation review:: Supervising physician onsite and consulted in the evaluation and care of this patient. The physician did have a face to face encounter with the patient. This chart was documented by the indicated scribe, (Chavez Barrow, Radha) and accurately reflects the services I performed and decisions made by Jase pulmmer Christophe I, MD, as attested by the provider's signature.
[2016-12-31 15:09] LABS: INR 0.97; PROTIME 10.2 Seconds (9.2-11.7); PTT 35.9 Seconds (22.0-36.0)
[2016-12-31 15:15] LABS: ALBUMIN 3.6 g/dL (3.5-5.0); POTASSIUM 5.2 mmol/L (3.5-5.1); TOTAL BILIRUBIN 0.41 mg/dL (0.20-1.00); TOTAL PROTEIN 6.2 g/dL (6.3-8.3)
--- NOTE | 2016-12-31 17:56 | HISTORY AND PHYSICAL ---
PRIMARY CARE PROVIDER: Dr. Henderson. PRIMARY PAINTER AND DECORATOR: Dr. Felton. CHIEF COMPLAINT: Chest pain with shortness of breath. HISTORY OF PRESENT ILLNESS: Ms. Meade is a 66-year-old, female who is well known to our service and looks much older than her stated age. Had a recent admit with a discharge on 12/29/2016 and that admission was for acute hypoxemic respiratory failure with pulmonary edema, pleural effusions requiring bilateral thoracentesis. Also with volume overload secondary to end- stage renal disease requiring hemodialysis and acute on chronic diastolic heart failure. She was discharged on 12/29/2016 to [facility]. This morning she woke with shortness of breath and chest pain that radiated to her jaw and down her left arm that had associated diaphoresis. She states that she is pain free from that, but continues to be short of breath. Workup with a chest x-ray reveals improved pulmonary edema and right pleural effusion that is persistent. She does have elevated JVP with a significant systolic ejection murmur and will be going urgently to hemodialysis today. Also found given her chest pain, she does have an elevated troponin level of 0.43 and she mostly maintains that troponin level primarily at 0.21. Will consult cardiology and Dr. Felton. PAST MEDICAL HISTORY: 1. End-stage renal disease with dialysis Thursday, , Thursday. 2. Hypertension. 3. Borderline diabetes mellitus. 4. Diastolic congestive heart failure with an EF of 60%. 5. Coronary artery disease. 6. Gastric AVMs. 7. Diverticulosis. 8. Cecal AVMs. 9. Internal and external hemorrhoids. 10. Hiatal hernia. 11. Multiple colonic polyps. 12. Severe protein calorie malnutrition. 13. Persistent pleural effusions. PAST SURGICAL HISTORY: Multiple coronary stents, hernia repair, bilateral tubal ligation, right arm fistula, previous thoracentesis, cholecystectomy, appendectomy, polypectomy. SOCIAL HISTORY: Currently living in [facility]. Denies tobacco, alcohol or illicit drug use. FAMILY HISTORY: CVA in her father. Coronary artery disease with an [place] in her mother. ALLERGIES: Adhesive, scopolamine and opioid pain medications. HOME MEDICATIONS: Aspirin 81 mg p.o. daily, Plavix 75 mg p.o. daily, docusate sodium 100 mg p.o. daily, Cymbalta 30 mg p.o. daily, Lasix 40 mg p.o. daily, hydralazine 50 mg p.o. t.i.d., albuterol and Atrovent nebulizers every 4 hours p.r.n., Ativan 0.5 mg p.o. t.i.d., Reglan 2.5 mg p.o. t.i.d., Toprol-XL 25 mg p.o. daily, Prilosec 40 mg p.o. daily, Zofran 4 mg p.o. t.i.d. p.r.n., Zoloft 50 mg p.o. nightly, Renvela 1600 mg p.o. t.i.d., Zanaflex 4 mg p.o. nightly, Desyrel 100 mg p.o. nightly. REVIEW OF SYSTEMS: Difficult to obtain, but all were negative except for those mentioned in the above HPI. PHYSICAL EXAMINATION: VITAL SIGNS: Temperature is 97.4 degrees, heart rate 73, respiratory rate 23, blood pressure 116/58, O2 saturation on nasal cannula was 100%, on room air 74%. She is 5 feet, 0 inches tall, 100 pounds. BMI is 19.7. GENERAL: Ms. Rosalba Meade is a 66-year-old, female who appears much older than her stated age and is very ill appearing. She is able answer questions appropriately, but is slow to respond. HEENT: Atraumatic, normocephalic. Pupils equal, round, reactive to light. Extraocular movements intact. Mucous membranes are dry. NECK: She does have positive JVP. There are carotid bruits bilaterally and this is at a 30- degree angle. CARDIOVASCULAR: S1, S2. Regular rate and rhythm. There is a holosystolic murmur noted. No rubs or gallops. PULMONARY: Decreased in the bases anterior posteriorly with mild crackles. Clear in the upper lobes. Mild accessory muscle use and work of breathing noted. Currently on nasal cannula. GENITOURINARY: Soft, nontender, nondistended. Positive bowel sounds x 4. EXTREMITIES: +2 dorsalis and radial pulses. No edema noted. SKIN: Warm, dry, intact. NEUROLOGIC: A and O x 3. Moves all extremities equally, very slow to respond. LABORATORY DATA: White blood cells 11,000, hemoglobin 11, hematocrit 35, platelet count 233,000. INR 0.97, PTT 35.9, sodium 137, potassium 5.2, BUN 57, creatinine is 4.9, glucose 84, calcium 9.0, magnesium 2.0, total bilirubin 0.41, AST 14, ALT 7, alkaline phos is 3.5, CK is 43. Troponin 0.43. ProBNP greater than 35,000. Protein is 6.2. IMAGING: Chest x-ray: Improving pulmonary edema and right pleural effusion. ASSESSMENT AND PLAN: 1. Acute on chronic diastolic congestive heart failure with significant volume overload. ProBNP is greater than 35,000. She is going for urgent hemodialysis at this time. 2. Chest pain. Rule out acute coronary syndrome. We will repeat EKG in the morning. She is chest pain-free at this time, but her troponins normally run around 0.2 or up to 0.4 and she stated that the pain radiated to her jaw on her left arm and she had some sweating and nausea with it and dizziness. Will consult cardiology. Do serial cardiac enzymes. Continue her aspirin. 3. Right pleural effusion, which is improving, but hopefully will improve more with hemodialysis. She has had recent thoracentesis bilaterally, so will monitor closely. Repeat chest x-ray in the morning. 4. Awaiting ABG, likely though with acute hypoxemic respiratory insufficiency, requiring oxygen. Will continue with albuterol and Atrovent nebulizers at this time. 5. End-stage renal disease. Receives dialysis Thursday, , Thursday. Will consult Dr. Felton. She is already going for urgent hemodialysis at this time. 6. Hypertension. Continue home medications. Beta-jordi is decreased secondary to heart failure. 7. Coronary artery disease. See #2. 8. Severe protein calorie malnutrition and failure to thrive. Dictated by KULDEEP Alexis for Oswaldo Talley MD cc: KULDEEP Alexis MD
[2016-12-31 18:00] LABS: ALLEN TEST YES; BE 5.4 mmoll (-3.0-3.0); BLOOD TYPE ARTERIAL; DRAW SITE L RADIAL; PCO2(98.6) 57 mmHg (35-45); PO2(98.6) 71 mmHg (60-100); SAMPLE BLOOD; SAO2 95.5 % (95.0-100.0); THB 11.4 g/dL (11.5-17.4); pH(98.6) 7.36 (7.35-7.45)
[2016-12-31 18:01] LABS: MODALITY CANNULA
--- NOTE | 2016-12-31 18:34 | CONSULTATION ---
DATE OF CONSULTATION: 12/31/2016 REASON FOR ADMISSION: Dyspnea, shortness of breath, right pleural effusion and pulmonary edema. CONSULTING PHYSICIAN: Dr. Laguna REASON FOR CONSULTATION: End-stage renal disease management, assist with medical management. HISTORY OF PRESENT ILLNESS: This is a 66-year-old female who was just discharged day before yesterday to the [facility] after being hospitalized for acute hypoxic respiratory failure secondary to pulmonary edema and pleural effusion, bilateral pneumothorax secondary to a thoracentesis, acute on chronic diastolic heart failure and had been treated with dialysis as her regular on Thursday, , Thursday, along with additional therapeutic dialysis for fluid volume management from her pleural effusion and pulmonary edema. The patient had last been dialyzed on Thursday, which was an extra treatment. She was then discharged to rehab with instructions to continue her regular scheduled dialysis. She did not present to dialysis yesterday and today she began having significantly worse shortness of breath. She was brought to the emergency room where chest x-ray has indicated improved but continued pulmonary edema and right pleural effusion. The patient has complained of chest pain while she has been in the emergency room and has been worked up for that and it was determined that she was in CHF. Her EKG was normal and lab thus far have not indicated otherwise. We have been asked to see her for her ESRD as well as her fluid volume status to assist with her management of these effusions. The patient is a poor historian and information is obtained basically from the family at the bedside. PAST MEDICAL HISTORY: End-stage renal disease on hemodialysis Thursday, , Thursday. Hypertension, diabetes, CHF, ejection fraction 60%. Coronary artery disease, gastric AVMs, diverticulosis, cecal AM, internal and external hemorrhoids, hiatal hernia. Multiple colonic polyps, protein calorie nutrition, failure to thrive, anemia of chronic disease , osteodystrophy of chronic disease. PAST SURGICAL HISTORY: Coronary artery stenting, hiatal hernia, bilateral tubal ligation. AV fistula right upper extremity. Previous thoracentesis, cholecystectomy, appendectomy, polypectomy, previous EGD and colonoscopy. ALLERGIES: Adhesive, scopolamine and opioid pain medication. MEDICATION: Home medications as per chart. FAMILY HISTORY: CVA, coronary artery disease and myocardial infarction. SOCIAL HISTORY: She is a resident of [facility]. No ETOH, tobacco or illicit drug use. REVIEW OF SYSTEMS: Chest pain, shortness of breath, decreased appetite. PHYSICAL EXAMINATION: Vital Signs: Temperature 97.4 degrees, pulse 73, respiratory rate 23, blood pressure 116/58. Intake and output have not been measured. General: This is an elderly female resting on a stretcher. She is awake and alert. She is on O2 supplementation. HEENT: She appears wasted. Temporal wasting noted. HEENT: Normocephalic, atraumatic. Conjunctivae pale. Oral mucosa moist. Neck: Supple. Trachea midline. JVD noted in a reclined position. Cardiovascular: Systolic murmur. Regular otherwise. Pulmonary: Coarse rhonchi. Right worse than left. Abdomen: Flat, soft, positive bowel sounds. Genitourinary: Not inspected. She has minimal void with hemodialysis assist. Extremities: 1+ pretibial edema. Dependent edema, pedal edema. Extremities are wasted. Integumentary: Ecchymoses noted bilateral upper and lower extremities. Various stages of healing. Integumentary: Skin is dry. Neurologic: Grossly nonfocal. Awake, alert, oriented x3. LABORATORY DATA: WBC of 11.0, hemoglobin 11.0, platelets 233,000. Sodium 137, potassium 5.2, CO2 27, BUN 57, creatinine 4.9. Troponin 0.4. BNP 35,000. Albumin 3.6. IMAGING: Chest x-ray, again with improved pulmonary edema. Continued right pleural effusion. PLAN: 1. End-stage renal disease management. The patient did not present to dialysis on Thursday, because she had dialysis on Thursday. Apparently, she did not understand that was an extra treatment not her regular treatment. We will plan to dialyze her today and again tomorrow to get her back on schedule in to treat her fluid status. 2. Pleural effusion, pulmonary edema. See above for plan. 3. Electrolytes, acid-base balance. She is on a 2K bath. 4. Anemia stable. Hemoglobin remains above 11. We will add Epogen if drops below. 5. Hypertension acceptable. Thank you for the consult. Dictated by KULDEEP Kessler for Nash Felton MD Patient seen, data reviewed, discussed with Xi Dodd on 12/31/16. I agree with the above assessment and plan of care. cc: Nash Felton MD [facility]
[2016-12-31] MEDS ORDERED: ZOFRAN IV PRN (19:25)
[2016-12-31] MEDS ORDERED: DUONEB (A & A) INH PRN (19:25)
[2016-12-31] MEDS ORDERED: TYLENOL PO PRN (19:25)
[2016-12-31] MEDS: REGLAN PO SCH (21:53)
[2016-12-31] MEDS: APRESOLINE PO SCH (21:53)
[2016-12-31] MEDS: ATIVAN PO SCH (21:53)
[2016-12-31] MEDS: RENAGEL PO SCH (21:53)
[2016-12-31] MEDS: ZANAFLEX PO SCH (21:53)
[2016-12-31] MEDS: DESYREL PO SCH (21:54)
[2016-12-31] MEDS: ZOLOFT PO SCH (21:54)
[2017-01-01 03:37] LABS: MANUAL DIFF NEEDED? NO
[2017-01-01 03:43] LABS: BASO% 1.2 % (0.0-0.8); EOS# 0.32 X1000 (0.0-0.7); HEMATOCRIT 35.7 % (37.0-47.0); HEMOGLOBIN 10.8 g/dL (12.0-16.0); IMM GRAN# 0.03 X1000 (0.0-0.04); IMM GRAN% 0.4 % (0.0-0.5); LYMPH# 0.86 X1000 (1.2-3.4); LYMPH% 10.6 % (20.5-51.1); MCH 31.1 PG (27-31); MCHC 30.3 g/dL (33-37); MCV 102.9 FL (81-99); MONO# 1.54 X1000 (0.11-0.59); NEUT% 64.8 % (42.2-75.2); PLT 227 X1000 (130-400); RBC 3.47 XMIL (4.2-5.4)
[2017-01-01 03:51] LABS: INR 1.02; PROTIME 10.7 Seconds (9.2-11.7); PTT 35.2 Seconds (22.0-36.0)
[2017-01-01 04:44] LABS: CALCIUM 9.4 mg/dL (8.8-10.2); MAGNESIUM 1.9 mg/dL (1.5-2.7); POTASSIUM 4.1 mmol/L (3.5-5.1); TOTAL BILIRUBIN 0.33 mg/dL (0.20-1.00); TOTAL PROTEIN 5.8 g/dL (6.3-8.3)
[2017-01-01] MEDS ORDERED: NS 2,000 ML MISC PRN (07:02)
[2017-01-01] MEDS ORDERED: HEPARIN IV PRN (07:02)
[2017-01-01] MEDS ORDERED: TIGHT: 0.2 ML/HR MISC PRN (07:02)
--- NOTE | 2017-01-01 07:21 | Diag Imaging Result Doc PS360 ---
EXAM: CHEST-PORTABLE HISTORY: pulmonary edema; effusion TECHNIQUE: AP portable at 0500 COMMENT: There are bilateral pleural effusions. There is cardiomegaly. There is pulmonary edema and/or pneumonia. There may be slight improvement since 12/31/2016. IMPRESSION: Slightly improved pulmonary edema. Electronically signed by Angelo Ford 01/01/2017 7:18 AM
--- NOTE | 2017-01-01 07:41 | EKG Report ---
Test Performed on : 12/31/2016 12:47:29 PM Test Reason : Chest Pain Blood Pressure : / mmHG Vent. Rate : 077 BPM Atrial Rate : 077 BPM P-R Int : 160 ms QRS Dur : 096 ms QT Int : 410 ms P-R-T Axes : 031 065 050 degrees QTc Int : 463 ms Normal sinus rhythm. Normal ECG When compared with ECG of 22-DEC-2016 06:17, premature atrial complexes. are no longer present RSR' pattern in V1 is no longer present Unconfirmed Result
--- NOTE | 2017-01-01 07:44 | EKG Report ---
Test Performed on : 01/01/2017 06:51:06 AM Test Reason : chest pain Blood Pressure : / mmHG Vent. Rate : 071 BPM Atrial Rate : 071 BPM P-R Int : 160 ms QRS Dur : 102 ms QT Int : 430 ms P-R-T Axes : 012 056 -18 degrees QTc Int : 467 ms Normal sinus rhythm. Minimal voltage criteria for LVH, may be normal variant Anterior infarct , age undetermined T wave abnormality, consider inferior ischemia Abnormal ECG When compared with ECG of 31-DEC-2016 12:48, (Unconfirmed) Inverted T waves have replaced nonspecific T wave abnormality in Inferior leads T wave inversion now evident in Anterior leads Non-specific ST elevation in Anteroseptal leads Confirmed by Curtis Leon DO ([id number]) on 01/03/2017 3:53:16 PM
[2017-01-01] MEDS: PLAVIX PO SCH (08:19)
[2017-01-01] MEDS: COLACE PO SCH (08:19)
[2017-01-01] MEDS: CYMBALTA PO SCH (08:19)
[2017-01-01] MEDS: ATIVAN PO SCH ×3 (08:19→16:58)
[2017-01-01] MEDS: REGLAN PO SCH ×3 (08:19→16:58)
[2017-01-01] MEDS: ASPIRIN PO SCH (08:19)
[2017-01-01] MEDS: APRESOLINE PO SCH ×3 (08:20→16:58)
[2017-01-01] MEDS: TOPROL XL PO SCH (08:20)
[2017-01-01] MEDS: PRILOSEC PO SCH (08:20)
[2017-01-01] MEDS: RENAGEL PO SCH ×3 (08:20→16:58)
[2017-01-01] MEDS ORDERED: LASIX PO SCH (09:00)
--- NOTE | 2017-01-01 11:28 | Diag Imaging Result Doc PS360 ---
EXAM: CT THORAX W/O CONTRAST HISTORY: recurrent bilateral pleural effusion TECHNIQUE: CT chest without contrast. Dose reduction protocol. COMPARISON: 10/02/2016 FINDINGS: There is a moderate-sized right-sided pleural effusion measuring 5.0 cm posteriorly and inferiorly in the midline. This is slightly smaller than on the prior exam. There is also a small left pleural effusion measuring less than 1.5 cm posteriorly and inferiorly in the midline. This is slightly smaller than on the prior exam. The heart remains enlarged. Prominent coronary artery calcifications. There is also prominent atherosclerosis in the aortic arch. There are enlarged mediastinal lymph nodes similar to the prior exam. There is a small pneumothorax anteriorly bilaterally. These have been followed recently with plain films. There is atelectasis to both lungs and emphysematous changes. There are infiltrates in the lower left lung. This is slightly more pronounced on the prior study. IMPRESSION: Bilateral pleural effusions with atelectasis and infiltrates in addition to small pneumothoraces. Cardiomegaly remains. Electronically signed by Luis Casillas 01/01/2017 11:25 AM
[2017-01-01] MEDS: LASIX IV SCH ×2 (11:49→21:03)
[2017-01-01] MEDS ORDERED: HEPARIN ONE (12:16)
[2017-01-01] MEDS ORDERED: NS 2,000 ML ONE (12:16)
[2017-01-01] MEDS ORDERED: EPOGEN SUBQ ONE (13:55)
--- NOTE | 2017-01-01 13:59 | PROGRESS NOTE ---
DATE: 01/01/2017 SUBJECTIVE: The patient reports she is still short of breath but definitely better than yesterday but is still noticing this problem. Denies any fever or chills. Denies any chest pain. OBJECTIVE: Vital Signs: Temperature 98 degrees, heart rate 71, respiratory 16, blood pressure 123/46, O2 saturation 99% on 4 L nasal cannula. General Examination: This is a chronically ill appearing and malnourished 66-year-old female looking much older than her age, lying in bed, in no acute distress. HEENT: Head is normocephalic, and atraumatic. Anicteric sclerae and pale conjunctivae. Mucous membranes moist. Neck supple. JVD present at 7 cm at 45 degrees. Carotid bruits bilaterally. No thyromegaly noted. Cardiovascular: S1, S2 heard. Holosystolic murmur noted in the aortic area radiating to the neck. Respiratory: Decreased breath sounds globally with mild crackles in both bases. Patient is not using any accessory muscles or having work of breathing. Abdomen is soft, nontender to palpation. Bowel sounds present. No organomegaly. Extremities: No clubbing, cyanosis, or edema. Peripheral pulses present in both legs. Neurological: Patient is alert and oriented x3. Moves 4 extremities. Cranial nerves 2-12 grossly normal. LABORATORY DATA: White cell count 8.01, hemoglobin 10.8, hematocrit 35.7, platelets 227,000. BMP shows creatinine 3.0 with BUN 27, and troponins are 0.4. ASSESSMENT AND PLAN: 1. [id number] diastolic congestive heart failure. The patient got urgent hemodialysis yesterday, but she is still having shortness of breath. The x-ray from yesterday, which was portable, showed some right pleural effusion but, just to have a better visualization of the lung anatomy, we are going to do chest CT. 2. Chest pain. Patient is not complaining of any chest pain, but troponin has been higher than they used to be. Cardiology has been consulted. We are going to follow his recommendations. 3. Right pleural effusion that was noted in the x-ray but just to have a better visualization of the lungs and to see if this patient will eventually need any pleural tap or thoracentesis, we will do a CT of the chest. 4. End-stage renal disease. Patient on dialysis Thursday, , and Thursday. We will consult Dr. Felton. 5. Hypertension. We will continue her home medications. 6. Coronary artery disease, aware. Not complaining of any chest pain this morning. 7. Severe protein calorie malnutrition. Patient will be provided Ensure 3 times per day. cc: Oswaldo Talley MD
--- NOTE | 2017-01-01 14:28 | PROGRESS NOTE ---
DATE: 01/01/2017 SUBJECTIVE: She states her shortness of breath is improved. She states she does not know why she is in the hospital. OBJECTIVE: Vital Signs: Blood pressure 117/41, heart rate 70, respirations 16, afebrile. Generally: She is a frail elderly woman in no distress. Skin: Pale and dry. Conjunctivae are pink. Pupils are equal. Neck: Neck veins are not visible. Heart: Regular without gallops or murmurs. Lungs: Have equal breath sounds. No crackles. Abdomen: Soft, nontender. Bowel sounds present. Extremities: Have no edema, clubbing, or cyanosis. DIAGNOSTIC DATA: CT of the chest: Bilateral effusions with atelectasis and small pneumothoraces. No mention of pulmonary edema. LABORATORY DATA: Sodium 143, potassium 4.1, chloride 101, bicarbonate 31, BUN 27, creatinine 3.0. Hemoglobin 10.8. IMPRESSION: 1. End-stage kidney disease and volume overload. Today is her routine dialysis day. We will dialyze her again today and target a new dry weight from yesterday. From my perspective, okay for discharge. 2. Anemia. In target. 3. Hypertension. Well managed. cc: Nash Felton MD
--- NOTE | 2017-01-01 19:54 | CONSULTATION ---
DATE OF CONSULTATION: 01/01/2017 CHIEF COMPLAINT: Shortness of breath. HISTORY: Ms. Meade is an unfortunate 66-year-old female who presents back to the hospital basically 48 hours after her discharge because she became profoundly short of breath. Upon presentation to the emergency department, a chest x-ray shows pulmonary edema. They did a CT scan of the chest today at 9:40 in the morning that shows bilateral pleural effusions with atelectasis and infiltrates in addition to small bilateral pneumothoraces. The patient has undergone dialysis today. She is still feeling short of breath. Somehow she reported chest pain to the initial provider, however, when I asked her, she denied having any chest pains at all. Of note, her troponin levels had risen compared to the ones that we noted on prior admission, which were 0.203 to 0.242. At this time the troponin went up to 0.430 and now is coming down to 0.335. Her EKG shows a nonspecific T wave change across the precordial leads which appears to be somewhat new. The EKG done at 12:48 on 12/31/2016 showed upright T waves and now the T waves are pointing down in the precordial leads, V1 through V6, possibly indicating subendocardial ischemia of the anterior wall. The patient at this time is not complaining of pain. She is just laying in bed , appearing tachypneic. PAST MEDICAL HISTORY: Her past history, as noted, is positive for advanced renal insufficiency. She is presently undergoing hemodialysis. The patient admits to a history of coronary heart disease and previous coronary interventions. A recent myocardial perfusion stress test was carried out on her most recent admission and that study showed decreased ejection fraction, however, there was no inducible ischemia noted. Her history is positive for COPD. She has had previous admissions to the hospital because of bilateral pleural effusions which have been drained percutaneously. PAST SURGICAL HISTORY: Positive for appendectomy, polypectomy, cholecystectomy , diverticulosis, external hemorrhoids. SOCIAL HISTORY: She is staying at a care home, [facility]. She has profound protein caloric malnutrition. Her body mass index at this time is 18.5. HOME MEDICATIONS: Her home medications listed included trazodone, tizanidine, Renvela, Zoloft, hydralazine 50 three times a day, metoprolol 25 daily, furosemide 40 daily, omeprazole 40 mg daily, duloxetine 30 mg daily, clopidogrel 75 q.a.m., aspirin 81 mg daily. ALLERGIES: Adhesive tape, scopolamine, oxycodone, and opioids. REVIEW OF SYSTEMS: She is a high fall risk. She is basically bedbound. Minimal activities. She is a care home resident. She had been made DNR on prior admission and also on this admission. PHYSICAL EXAMINATION: Vital signs: Blood pressure 126/56. Pulse 72. Respirations 16. Temperature 98.4. General: She is elderly, tachypneic, appears to be chronically ill. Neck: Prominent jugular veins. Chest: Markedly diminished breath sounds with pleural rub bilaterally, especially on the left side. Markedly diminished breath sounds bilaterally. Dullness to percussion at bases. Cardiovascular: Heart sounds are regular, distant, extrasystole is noted. Abdomen: Scaphoid. Extremities: Showed decreased pulses. No edema. The patient appears to be pale. Neurologic: Follows commands. Moves four extremities. LABORATORY DATA: Hemoglobin 10.8, white count 8100, platelet count 227,000. Sodium 143, potassium 4.1, BUN 27, creatinine 3.0, albumin 3.0. ProBNP is greater than 35, 000. IMPRESSION: 1. Patient presenting with increasing dyspnea with abnormal chest x-ray, worsening troponin levels, abnormal EKG. Given history of ASHD/stents, The patient may be having subendocardial ischemia, non ST elevation AK. 2. Her CT scan of the chest also shows the presence of bilateral pneumothoraces with pleural effusions and infiltrates. that probably contributes a great deal to her dyspnea. 3. Her presentation could relate to stress-related cardiomyopathy or coronary ischemia with worsening heart failure which is mostly diastolic based on the previous echo report. 4 . She has advanced renal failure, dialysis patient. 5. Protein caloric malnutrition. RECOMMENDATIONS: At this point in time we would probably focus on optimizing her blood pressure, heart rate, and volume mostly by means of hemodialysis. Cardiac murphy there is very little that I can offer at this time. The patient is not a candidate for acute intervention. She has been made DNR. We will see what sort of medication changes we can provide to optimize her dyspnea, probably vasodilators would be the way to go. We will follow her along. cc: Nii Durbin MD [facility]ENTERBradley
[2017-01-01] MEDS: DESYREL PO SCH (21:03)
[2017-01-01] MEDS: ZANAFLEX PO SCH (21:03)
[2017-01-01] MEDS: ZOLOFT PO SCH (21:03)
[2017-01-02 05:42] LABS: MANUAL DIFF NEEDED? NO
[2017-01-02 05:46] LABS: EOS# 0.35 X1000 (0.0-0.7); EOS% 4.3 % (0.0-10.0); HEMATOCRIT 36.3 % (37.0-47.0); HEMOGLOBIN 11.3 g/dL (12.0-16.0); IMM GRAN# 0.04 X1000 (0.0-0.04); IMM GRAN% 0.5 % (0.0-0.5); LYMPH# 0.86 X1000 (1.2-3.4); LYMPH% 10.5 % (20.5-51.1); MCH 31.8 PG (27-31); MCHC 31.1 g/dL (33-37); MCV 102.3 FL (81-99); MONO# 1.53 X1000 (0.11-0.59); MONO% 18.8 % (1.7-9.3); MPV 11.1 FL (7.4-10.4); NEUT% 64.9 % (42.2-75.2); PLT 238 X1000 (130-400); RBC 3.55 XMIL (4.2-5.4)
[2017-01-02 06:08] LABS: CALCIUM 9.5 mg/dL (8.8-10.2); POTASSIUM 3.6 mmol/L (3.5-5.1)
--- NOTE | 2017-01-02 07:38 | EKG Report ---
Test Performed on : 01/02/2017 06:44:48 AM Test Reason : dyspnea Blood Pressure : / mmHG Vent. Rate : 119 BPM Atrial Rate : 119 BPM P-R Int : 202 ms QRS Dur : 104 ms QT Int : 372 ms P-R-T Axes : 070 091 042 degrees QTc Int : 523 ms Sinus tachycardia. Rightward axis Voltage criteria for left ventricular hypertrophy Abnormal ECG When compared with ECG of 01-JAN-2017 16:10, (Unconfirmed) T wave inversion no longer evident in precordial [id number] Confirmed by Curtis Leon DO ([id number]) on 01/04/2017 12:46:46 PM
--- NOTE | 2017-01-02 07:40 | EKG Report ---
Test Performed on : 01/01/2017 4:10:26 PM Test Reason : dyspnea, cp Blood Pressure : / mmHG Vent. Rate : 071 BPM Atrial Rate : 071 BPM P-R Int : 160 ms QRS Dur : 106 ms QT Int : 434 ms P-R-T Axes : 000 085 -48 degrees QTc Int : 471 ms Sinus rhythm. with premature atrial complexes. Moderate voltage criteria for LVH, may be normal variant Cannot rule out Septal infarct (cited on or before 01-JAN-2017) Abnormal ECG When compared with ECG of 01-JAN-2017 06:51, (Unconfirmed) premature atrial complexes. are now present T wave inversion less evident in inferior III ST now depressed in V6 T wave abnormality, consider anterolateral ischemia now present [id number] Confirmed by Curtis Leon DO ([id number]) on 01/04/2017 8:41:45 AM
[2017-01-02] MEDS: RENAGEL PO SCH ×2 (08:18→13:01)
[2017-01-02] MEDS: ISORDIL PO SCH ×2 (08:18→13:01)
[2017-01-02] MEDS: PLAVIX PO SCH (08:19)
[2017-01-02] MEDS: APRESOLINE PO SCH ×2 (08:19→13:01)
[2017-01-02] MEDS: ASPIRIN PO SCH (08:19)
[2017-01-02] MEDS: LASIX IV SCH (08:19)
[2017-01-02] MEDS: TOPROL XL PO SCH (08:19)
[2017-01-02] MEDS: COLACE PO SCH (08:19)
[2017-01-02] MEDS: ATIVAN PO SCH ×2 (08:19→13:01)
[2017-01-02] MEDS: REGLAN PO SCH ×2 (08:19→13:01)
[2017-01-02] MEDS: CYMBALTA PO SCH (08:20)
[2017-01-02] MEDS: PRILOSEC PO SCH (08:24)
[2017-01-02 11:31] VITALS: BP 115/46
--- NOTE | 2017-01-02 12:26 | PROGRESS NOTE ---
DATE: 01/02/2017 SUBJECTIVE: She is expecting discharge today. Shortness of breath is back to baseline. OBJECTIVE: Vital Signs: Blood pressure 115/46, heart rate 71, respiration 18, afebrile. General: She is a frail woman in no distress. Skin: Warm and dry. Neck: Neck veins are not visible. Heart: Regular. Lungs: Have equal breath sounds. No crackles or wheezes. Abdomen: Soft, nontender. Bowel sounds present. Extremities: Have no edema, clubbing, or cyanosis. IMPRESSION: 1. Volume overload. Clinically improved. 2. End-stage renal disease. She will go to her routine dialysis tomorrow. 3. Anemia is in target. 4. Electrolytes acid base, in target. cc: Nash Felton MD
--- NOTE | 2017-01-02 15:23 | DISCHARGE SUMMARY ---
ADMISSION DATE: 12/31/2016 DISCHARGE DATE: 01/02/2017 ADMISSION DIAGNOSES: 1. Acute on chronic diastolic congestive heart failure with significant volume overload. 2. Chest pain. Rule out acute coronary syndrome. 3. Right pleural effusion, which is improving, but hopefully will improve more with hemodialysis. 4. Acute hypoxemic respiratory insufficiency requiring oxygen. 5. End-stage renal disease requiring urgent hemodialysis. 6. Hypertension. 7. Coronary artery disease. 8. Severe protein calorie malnutrition and failure to thrive. DISCHARGE DIAGNOSES: 1. Acute on chronic diastolic congestive heart failure after receiving hemodialysis on admission. Chest CT afterwards showed continued bilateral pleural effusions with atelectasis and infiltrates and small pneumothoraces, but no pulmonary edema. 2. Chest pain. Troponins are remaining slightly higher than they use to be in cardiology records. Diagnosis was that the patient may be having subendocardial ischemia non-ST elevation myocardial infarction, but it also could relate to stress-related cardiomyopathy or coronary ischemia with worsened heart failure, mostly diastolic. There was very little cardiac-murphy that could be offered, other than medical therapy, and is not a candidate for acute intervention. 3. Pleural effusions, somewhat improved, and did not require thoracentesis during this admit. 4. End-stage renal disease. Received dialysis urgently on admit, which improved volume overload status. 5. Hypertension. Continue with home medications. 6. Coronary artery disease, see #2. 7. Severe protein calorie malnutrition. Was provided with Ensure 3 times per day along with meals. CONSULTATIONS: 1. Dr. Durbin with cardiology. 2. Dr. Felton with nephrology. PROCEDURES: None. HOSPITAL COURSE: Ms. Rosalba Meade is a 66-year-old, female, who is well known to our service and who looks much older than her stated age with a medical history of end-stage renal disease, who receives dialysis Thursday, , Thursday, diastolic congestive heart failure, coronary artery disease, severe protein calorie malnutrition and persistent pleural effusions that require thoracentesis, presented with complaints of shortness of breath and chest pain. The chest pain had radiated to her jaw and down her left arm. It was also associated with diaphoresis. On admit, she was pain-free, but continued to have shortness of breath. Chest x- ray at that time revealed improved pulmonary edema, persistent right pleural effusion. Assessment was consistent with elevated JVP, a significant systolic ejection murmur, and was sent for urgent hemodialysis secondary to folic fluid volume overload. Also, found was an elevated troponin level of 0.43 and normally she is around 0.2. So, cardiology was consulted to follow along, and their recommendation was to medically treat. It was felt that she had possibly been having a subendocardial ischemia non-ST elevated SC, and that it also could be stress- related cardiomyopathy or cardiac ischemia with worsening heart failure, which was mostly diastolic based on her previous echo report. It was felt by their service to focus on optimizing her blood pressure, heart rate and volume mostly by means of hemodialysis. Otherwise there was little that could be offered cardiac as far as interventions. Medication change that was recommended was likely vasodilators. So, the medication added was isosorbide dinitrate. Shortness of breath improved. No continued complaints of chest pain, and it was deemed appropriate for her to be discharged once again to [facility]. DISCHARGE VITAL SIGNS: Temperature is 97 degrees, heart rate 71, respiratory rate 18, blood pressure 115/46, O2 saturation 96% on 3 L nasal cannula. DISCHARGE DIET: Ensure 3 times a day with meals. Renal diet. Cardiac diet. Actually she had Nepro shakes 3 times a day with meals. DISCHARGE LAB DATA: White blood cells 8000, hemoglobin 11, hematocrit 36, platelet count 238. Sodium 137, potassium 3.6, BUN 16, creatinine is 2.3. Glucose was 79. Her troponin trends were on admit 0.43, 0.42, 0.41 and down to 0.33. CK's remained normal. ProBNP remains greater than 35,000. TSH was 1.10. IMAGING: During hospital stay, chest x-ray on 12/31/2016 revealed improved pulmonary edema and right pleural effusion. Chest x-ray on 01/01/2017: Slightly improved pulmonary edema. Chest CT on 01/01/2017: Bilateral pleural effusions with atelectasis and infiltrates in addition to small pneumothoraces and cardiomegaly remains. EKG on admit on 12/31/2016: Normal sinus rhythm. Rate was 77. QTc is 463. EKG on 01/02: Sinus tachycardia. Rate was 119. QTc is 523. DISCHARGE ACTIVITY: As tolerated. DISPOSITION: [facility]. CODE STATUS: DNR level 1 as per copy of Living Will that we have a copy of. DISCHARGE INSTRUCTIONS: Take home medications as prescribed. DISCHARGE MEDICATIONS: 1. Aspirin 81 mg p.o. daily. 2. Plavix 75 mg p.o. daily. 3. Docusate sodium 100 mg p.o. daily. 4. Cymbalta 30 mg p.o. daily. 5. Furosemide 40 mg p.o. daily. 6. Hydralazine 10 mg p.o. t.i.d. 7. Albuterol/Atrovent nebs every 4 hours p.r.n. 8. Isosorbide Dinitrate 10 mg p.o. t.i.d. 9. Ativan 0.5 mg p.o. t.i.d. 10. Reglan 2.5 mg p.o. t.i.d. 11. Toprol-XL 25 mg p.o. daily. 12. Prilosec 40 mg p.o. daily. 13. Zofran 4 mg p.o. t.i.d. 14. Zoloft 50 mg p.o. nightly. 15. Renvela 1600 mg p.o. t.i.d. 16. Zanaflex 4 mg p.o. nightly. 17. Trazodone 100 mg p.o. nightly. DISCHARGE TIME: 40 minutes Addendum: Patient seen and examined. Agree with KULDEEP note. It reflects my assessment and plan. Patient is being discharged in stable condition. She is not complaining of shortness of breath. CT of chest confirmed pleural effusion but much better in comparing with previous visits. I dont think this patient would be benefit from performing another thoracentesis at this time. Cardiology has been consulted who recommend medical treatment only for those elevated troponins. Patient also reported feeling good and being now on her usual state of health. Dictated by KULDEEP Alexis for Oswaldo Talley MD cc: KULDEEP Alexis MD [facility]
== END 2017-01-02 14:35 ==
LOC: SUPCPDRO → ED 12:41 → 3S 16:29
PROVIDERS: ATTEND Internal Medicine

== ENCOUNTER 2017-01-08 11:30 | Inpatient (IN) ==
[2017-01-08 12:52] LABS: BASO% 0.4 % (0.0-0.8); EOS# 0.03 X1000 (0.0-0.7); EOS% 0.1 % (0.0-10.0); HEMATOCRIT 37.5 % (37.0-47.0); HEMOGLOBIN 12.1 g/dL (12.0-16.0); IMM GRAN# 0.13 X1000 (0.0-0.04); IMM GRAN% 0.6 % (0.0-0.5); LYMPH# 0.56 X1000 (1.2-3.4); LYMPH% 2.5 % (20.5-51.1); MANUAL DIFF NEEDED? NO; MCH 31.4 PG (27-31); MCHC 32.3 g/dL (33-37); MCV 97.4 FL (81-99); MONO# 1.67 X1000 (0.11-0.59); MONO% 7.5 % (1.7-9.3); MPV 10.6 FL (7.4-10.4); NEUT% 88.9 % (42.2-75.2); PLT 354 X1000 (130-400); RBC 3.85 XMIL (4.2-5.4)
--- NOTE | 2017-01-08 12:59 | Diag Imaging Result Doc PS360 ---
EXAM: CHEST-PORTABLE HISTORY: sob, rales TECHNIQUE: AP portable upright at 1220 COMMENT: There is increased pleural fluid on the right compared to the previous study of 01/01/2017. The left lung appears to be better expanded however. IMPRESSION: Worsened right pleural effusion. Electronically signed by Angelo Ford 01/08/2017 12:57 PM
[2017-01-08 13:06] LABS: ALBUMIN 3.2 g/dL (3.5-5.0); CALCIUM 9.7 mg/dL (8.8-10.2); POTASSIUM 4.1 mmol/L (3.5-5.1); TOTAL BILIRUBIN 0.42 mg/dL (0.20-1.00); TOTAL PROTEIN 6.4 g/dL (6.3-8.3)
[2017-01-08] MEDS ORDERED: HEPARIN IV PRN (13:15)
[2017-01-08] MEDS ORDERED: NS 2,000 ML MISC PRN (13:15)
[2017-01-08] MEDS ORDERED: TIGHT: 0.2 ML/HR MISC PRN (13:15)
--- NOTE | 2017-01-08 13:36 | EKG Report ---
Test Performed on : 01/08/2017 11:34:41 AM Test Reason : SOB Blood Pressure : / mmHG Vent. Rate : 097 BPM Atrial Rate : 097 BPM P-R Int : 158 ms QRS Dur : 102 ms QT Int : 368 ms P-R-T Axes : 090 007 -05 degrees QTc Int : 467 ms Normal sinus rhythm. Possible Left atrial enlargement Possible Inferior infarct (cited on or before 08-JAN-2017) Possible Anterior infarct (cited on or before 08-JAN-2017) Abnormal ECG When compared with ECG of 08-JAN-2017 11:33, (Unconfirmed) T wave amplitude has increased in lateral leads V5 Non-specific change in ST segment in V2-V3 Confirmed by Curtis Leon DO ([id number]) on 01/11/2017 4:40:41 PM
--- NOTE | 2017-01-08 14:29 | PROVIDER DOCUMENTATION ---
This chart was entered by Rand Schuster Scribe, acting as scribe for Luis Ellis MD. HPI-Respiratory General - General Chief Complaint: Shortness of Breath Stated Complaint: SOB/EXTREME NAUSEA Time Seen by Provider: 01/08/17 11:54 Source: patient Allergies/Adverse Reactions: Patient Allergies Allergy/AdvReac Type Severity Reaction Status Date / Time adhesive tape Allergy Unknown Verified 01/08/17 11:52 scopolamine Allergy NAUSEA/VOMI Verified 01/08/17 11:52 TING Opioids-Methadone and Related AdvReac Unknown Verified 01/08/17 11:52 oxycodone AdvReac pt request Verified 01/08/17 11:52 not to have Home Medications: Home Medication List Medication Instructions Recorded Confirmed Last Taken Type Tizanidine HCl [Zanaflex] 4 mg PO HS 04/10/15 12/31/16 12/30/16 20:00 History Trazodone [Desyrel] 100 mg PO QHS 04/10/15 12/31/16 12/30/16 20:00 History Sertraline [Zoloft] 50 mg PO HS 08/13/15 12/31/16 12/30/16 20:00 History Duloxetine [Cymbalta] 30 mg PO DAILY 08/08/16 12/31/16 12/31/16 08:00 History Aspirin 81 mg PO DAILY #0 08/22/16 12/31/16 12/31/16 08:00 Rx Clopidogrel Bisulfate [Plavix] 75 mg PO QAM #0 08/22/16 12/31/16 12/31/16 08: 00 Rx Metoclopramide HCl [Reglan] 2.5 mg PO TID 10/02/16 12/31/16 12/31/16 06:00 History Docusate Sodium 100 mg PO DAILY 11/18/16 12/31/16 12/30/16 09:00 History Furosemide 40 mg PO DAILY 11/18/16 12/31/16 12/31/16 08:00 History 80 mg Ipratropium/Albuterol Sulfate 3 ml IH Q4H PRN 11/18/16 12/31/16 12/21/16 History [Iprat-Albut 0.5-3(2.5) mg/3 ml] Lorazepam [Ativan] 0.5 mg PO TID 11/18/16 12/31/16 12/31/16 05:00 History Metoprolol Succinate E.r. [Toprol 25 mg PO DAILY 11/18/16 12/31/16 12/31/16 09: 00 History Xl] Ondansetron [Zofran] 4 mg PO TID 11/18/16 12/31/16 12/31/16 05:00 History Sevelamer Carbonate [Renvela] 1,600 mg PO TID 11/18/16 12/31/16 12/21/16 History Omeprazole [Prilosec] 40 mg PO DAILY 12/31/16 12/31/16 Unknown History Hydralazine [Apresoline] 10 mg PO TID #90 tablet 01/02/17 Unknown Rx Isosorbide Dinitrate [Isordil] 10 mg PO TID #90 tablet 01/02/17 Unknown Rx - History of Present Illness-Resp Nature of Presenting Problem: 66 Y/O F presents to ER with the complain of SOB [employer]. pt states that she lives in a shelter and as feeling SOB and nausea this morning and she told them to send her to ER. pt states that she was in the hospital for 8 days for the same problem. pt states that she has kidney failure and is on dialysis X3 times a week and takes blood thinners. Severity in ED: reports: moderate Onset/Duration: reports: this morning Timing: reports: improving Exposure: reports: unknown cause Cough Quality/Degree: reports: no cough Episode Frequency: other (was in hospital for same reason) Associated Symptoms: reports: shortness of breath Similar Symptoms Previously?: Yes Recently seen or treated by another doctor?: Yes Review of Systems - Adult - REVIEW OF SYSTEMS - ADULT Constitutional: reports: no symptoms reported Eyes: reports: no symptoms reported Ears, Nose, Mouth & Throat: reports: no symptoms reported Cardiovascular: reports: no symptoms reported Respiratory: reports: shortness of breath. denies: cough, wheezing Gastrointestinal: reports: nausea. denies: abdominal pain, diarrhea, vomiting Genitourinary: reports: no symptoms reported Musculoskeletal: reports: no symptoms reported Integumentary: reports: no symptoms reported Neurological: reports: no symptoms reported Psychiatric: reports: no symptoms reported Endocrine: reports: no symptoms reported Hematologic/Lymphatic: reports: no symptoms reported Allergic/Immunologic: reports: no symptoms reported All Other Systems: Reviewed and Negative Past History - Adult - PAST MEDICAL HISTORY-ADULT Review of Records: reports: Old Records Reviewed, Nursing Assessment Review Major Childhood Illnesses: reports: denies history Cardiovascular: reports: CAD, HTN, [place] Respiratory: reports: denies history Gastrointestinal: reports: GERD, other (colon) Obstetrical/Gynecological: reports: denies history Genitourinary: reports: ESRD Musculoskeletal: reports: chronic pain (back) Neurological: reports: denies history Psychiatric: reports: anxiety Endocrine/Immune: reports: Diabetes Other Conditions: reports: denies history - PRIOR SURGERIES/PROCEDURES Surgical/Procedure History: reports: cardiac stent (8), back/neck (back) - IMMUNIZATION STATUS Childhood Immunizations: See Nurse Assessment Flu Vaccine: See Nurse Assessment - FAMILY HISTORY Family History: reviewed, not pertinent Physical Exam-General - PHYSICAL EXAM-ADULT Initial Vital Signs Reviewed: Yes - CONSTITUTIONAL General Appearance: thin, other (weak) - EYES Eyes: PERRL/EOMI, pink conjunctivae - HEAD, EARS, NOSE, MOUTH & THROAT HENMT: moist mucous membranes, normal ENT inspection, TMs normal - NECK Neck: non-tender, full range of motion, supple - RESPIRATORY Respiratory: chest non-tender, lungs clear, normal breath sounds - CARDIOVASCULAR Cardiovascular: normal peripheral pulses, regular rate, rhythm, no edema - GASTROINTESTINAL (ABDOMEN) Abdominal Exam: normal bowel sounds, non tender, soft - MUSCULOSKELETAL Back Exam: normal inspection, no CVA tenderness, no vertebral tenderness Extremity: normal inspection, other (wrinkles on bilat legs). negative: swelling, tenderness - SKIN Integumentary: normal color, normal turgor, warm/dry, other (L arm bruises) - NEUROLOGIC Neurologic: grossly normal, no motor/sensory deficits - PSYCHIATRIC Psych/Mental Status: normal mood/affect, normal thought content, normal thought process, oriented x 3 Progress - PLAN OF CARE/RESULTS Progress/Plan/Lab Results: Vital Signs - 8 hr 01/08/17 11:45 01/08/17 11:47 Temperature 98 F Pulse Rate 99 H Respiratory Rate 26 H Blood Pressure 130/72 O2 Sat by Pulse Oximetry 81 L 96 Laboratory Results - last 24 hr 01/08/17 01/08/17 11:44 11:44 WBC 22.26 H RBC 3.85 L Hgb 12.1 Hct 37.5 MCV 97.4 MCH 31.4 H MCHC 32.3 L RDW Std Deviation 14.7 H Plt Count 354 MPV 10.6 H Immature Gran % (Auto) 0.6 H Neut % (Auto) 88.9 H Lymph % (Auto) 2.5 L [facility] % (Auto) 7.5 Eos % (Auto) 0.1 Baso % (Auto) 0.4 Immature Gran # (Auto) 0.13 H Neut # (Auto) 19.79 H Lymph # (Auto) 0.56 L [facility] # (Auto) 1.67 H Eos # (Auto) 0.03 Baso # (Auto) 0.08 Sodium 130 L Potassium 4.1 Chloride 89 L Carbon Dioxide 25 Anion Gap 16 BUN 49 H Creatinine 4.8 H Estimated GFR/1.73 m2 9 BUN/Creatinine Ratio 10 Glucose 131 H Calculated Osmolality 276 Calcium 9.7 Total Bilirubin 0.42 AST 45 H ALT 50 H Alkaline Phosphatase 543 H Total Protein 6.4 Albumin 3.2 L Globulin 3.2 Albumin/Globulin Ratio 1.0 Orders Category Date Time Status DNR [Resuscitation Status] Routine Care 01/08/17 12:15 Ordered Dialysate Bath: DIRECTED Care 01/08/17 13:15 Active Dialysate Flow: DIRECTED Care 01/08/17 13:15 Active Dialysis Blood Flow: DIRECTED Care 01/08/17 13:15 Active Dialysis Machine Settings: DIRECTED Care 01/08/17 13:15 Active Dialysis Treatment Time: DIRECTED Care 01/08/17 13:15 Active Dialysis Treatment Weight ROUTINE Care 01/08/17 13:15 Active Dialysis UF Removal Amount: DIRECTED Care 01/08/17 13:15 Active Dialyzer Type: DIRECTED Care 01/08/17 13:15 Active NRSG - Obtain Dialysis Consent NOW Care 01/08/17 13:15 Active Z-Document. for Tele Applied ORDERED Care 01/08/17 12:16 Active NPO Diet 01/08/17 12:15 Active CHEST-PORTABLE [RAD] Stat Exams 01/08/17 12:17 Completed BLOOD CULTURE [BLDCUL] Stat Lab 01/08/17 12:20 Results CBC WITH ELECTRONIC DIFF [HEME] Stat Lab 01/08/17 11:44 Completed COMPREHENSIVE METABOLIC PANEL [CHEM] Stat Lab 01/08/17 11:44 Completed UA NIMS W/REFLEX CULT [URINALYSIS] Stat Lab 01/08/17 12:16 Uncollected 0.9% Sodium Chloride Inj [Ns] 2,000 ml Med 01/08/17 13:15 Discontinued MISC As Directed Heparin Med 01/08/17 13:15 Discontinued 1,000 unit IV BOLUS PRN Heparin 1000 Units/ml [Tight: 0.2 ml/Hr] Med 01/08/17 13:15 Discontinued 1 each MISC DIRECTED PRN Oxygen Device Routine Oth 01/08/17 12:15 Active Telemetry [OM.EQ] Routine Oth 01/08/17 12:15 Active EKG [EKG] Stat Ther 01/08/17 11:34 Draft Lab and cxr reviewed and note made of wbc 22K Obviousy ill. Result Diagrams: 01/08/17 11:44 01/08/17 11:44 - EKG 1 Time of EKG reading by physician:: 11:33 EKG Read and Signed by:: Luis Ellis EKG Interpretation (*Must complete 3 of following elements*): Abnormal Rate: 96 Rhythm: sinus rhythm with premature atrial complexes Comments: abnormal ECG 2 Time of EKG reading by physician:: 11:34 EKG Read and Signed by:: Luis Ellis EKG Interpretation (*Must complete 3 of following elements*): Abnormal Rate: 97 Rhythm: normal Sinus rhythm Comments: abnormal ECG - XRAY 1 XRAY: Bilateral XRAY Study: Chest Impression: Abnormal XRAY Interpretation: worsen right pleural effusion by radiologist - CONSULTS/PCP/HOSPITALIST Notification #1 *Consult/PCP/Hospitalist*: Dr Rice Time Discussed: 14:25 Consult Disposition: Admit Departure - Departure Date of Disposition Decision: 01/08/17 Time of Disposition Decision: 14:26 DIAGNOSIS: Septicemia, CRF (chronic renal failure) Disposition: ADMITTED INPATIENT 09 Certified Medical Emergency: Emergent Condition: Poor Referrals and Follow-Ups: Karie Henderson MD [Primary Care Provider] - - Critical Care Note This patient required my direct & personal management of CC.: No Attestation - Physician/ ARMOND Attestation Patient care was provided by Advanced Practice Provider:: No The physician spent face to face time with patient:: Yes Advanced Practice Provider documentation review:: Supervising physician onsite and consulted in the evaluation and care of this patient. The physician did have a face to face encounter with the patient. This chart was documented by the indicated scribe, (Rand Schuster Scribe) and accurately reflects the services I performed and decisions made by me, Luis Ellis MD, as attested by the provider's signature.
[2017-01-08 16:44] LABS: ALLEN TEST YES; BE 7.5 mmoll (-3.0-3.0); BLOOD TYPE ARTERIAL; DRAW SITE L RADIAL; METHB 0.5 % (0.0-1.5); O2(CT) 14.4 mL/dL (15.0-23.0); PCO2(98.6) 44 mmHg (35-45); PO2(98.6) 55 mmHg (60-100); SAMPLE BLOOD; SAO2 94.2 % (95.0-100.0); THB 11.1 g/dL (11.5-17.4); pH(98.6) 7.47 (7.35-7.45)
[2017-01-08 16:45] LABS: MODALITY CANNULA
--- NOTE | 2017-01-08 17:07 | HISTORY AND PHYSICAL ---
GLUE COOK: Dr. Nash Felton. PRIMARY CARE PHYSICIAN: Dr. Henderson. CHIEF COMPLAINT: Chest pain and shortness of breath. HISTORY OF PRESENT ILLNESS: Ms. Meade is a 66-year-old female, who is well-known to our service. She was most recently discharged on 01/02/2017 for acute hypoxemic respiratory failure, chest pain, shortness of breath, [id number] diastolic heart failure, and right- sided pleural effusion. She returns today from [facility] with acute onset of chest pain and shortness of breath that began last night. She reports this pain woke her up out of sleep, and she has been short of breath ever since. She describes the pain as midsternal, constant, and a pressure-type sensation. She reports some mild nausea, but no vomiting. She denies any cough or congestion. No fever or chills. She denies any abdominal pain or diarrhea. No lower extremity edema. In the ER, she had a chest x-ray done, which shows continued bilateral pleural effusions, but slightly improved aeration from last week. There was worsening of the right-sided pleural effusion. When she got to the ER, she went to dialysis, and has since completed dialysis. She is noted to have a white count of 23,000, with questionable evidence of pneumonia on her chest x-ray. She also has elevated transaminases and alkaline phosphatase. We have obtained blood cultures, and we are going to start antibiotics and send her to CT. Her EKG does not show any acute ST-segment deviations, and we are currently awaiting troponin. PAST MEDICAL HISTORY: 1. Severe coronary artery disease. 2. ESRD, on hemodialysis Thursday, , Thursday. 3. Hypertension. 4. Diastolic heart failure. 5. Gastric AVMs. 6. Cecal AVMs. 7. Diverticulosis. 8. Hiatal hernia. 9. Severe protein calorie malnutrition. 10. Persistent pleural effusions. 11. Failure to thrive. PAST SURGICAL HISTORY: Multiple coronary stents, bilateral tubal ligation, right arm fistula, multiple thoracenteses, cholecystectomy, appendectomy, polypectomy. SOCIAL HISTORY: She lives at [facility]. Denies tobacco, alcohol , or drug use. FAMILY HISTORY: Noncontributory. ALLERGIES: Adhesives, scopolamine, and opioids. HOME MEDICATIONS: Currently being compiled. REVIEW OF SYSTEMS: Ten-point review of systems obtained and found to be negative, with the exception of the HPI. PHYSICAL EXAMINATION: VITAL SIGNS: Blood pressure 130/72, heart rate 99, respiratory rate is 26, saturation 99% on 3 L. Temperature is 98 degrees. GENERAL: This is a frail, bordering on cachectic-appearing, 66-year-old female, lying in the hospital bed, in no acute distress. NEUROLOGIC: The patient is awake, somewhat lethargic. She answers orientation questions correctly, with the exception of the year. Exam is nonfocal. HEENT: Head is atraumatic, normocephalic. Pupils equal, round, reactive to light. Oral mucosa is dry. NECK: Trachea is midline. There is no JVD. CHEST: Crackles bilaterally, with diminished sounds over the right lung base. CARDIOVASCULAR: Regular rate and rhythm, a 2/6 murmur noted. GASTROINTESTINAL: Slight right upper quadrant tenderness to palpation. Overall , belly is soft and nondistended. Bowel sounds are positive. EXTREMITIES: No edema, clubbing, or cyanosis. Pulses diminished bilaterally. LABORATORY STUDIES: WBC 22.26, hemoglobin 12.1, hematocrit 37.5, platelet count 354. Sodium 130, potassium 4.1, chloride 89, CO2 25, anion gap 16, BUN 49, creatinine 4.8, glucose 131. AST 45, ALT 50, alkaline phosphatase 543. T bilirubin 0.42, albumin 3.2. ASSESSMENT AND PLAN: 1. Chest pain and shortness of breath, not likely to be ischemic chest pain. We are going to trend her enzymes and make sure she is on aspirin. We are going to check a chest CT, as she has worsening pleural effusion, which could certainly be contributing to her symptoms, if not a causative factor. We will get a CT of the chest. If she needs thoracentesis, we will discuss with her and her family. 2. Early sepsis. Questionable pulmonary source. We are going to CT her chest, obtain cultures, start her on Zosyn and Zyvox. We will also check a lactic acid. 3. End-stage renal disease, on hemodialysis. Dr. Felton is following. She has just completed dialysis. 4. Elevated liver function tests. She has chronically elevated liver function tests. We are checking an abdomen and pelvis CT. 5. Chronic pleural effusion. We are checking a CT. She may need thoracentesis. 6. Borderline diabetes mellitus. We will put her on sliding scale and pattern sugars. 7. Deep vein thrombosis prophylaxis with heparin, given her renal failure. 8. Further recommendations to follow. I personally performed a face to face evaluation on this patient, also I review laboratory work and images, she has a suspicious lesion on her chest X- rays, likely this patient has pneumonia, and her respiratory distress is secondary to this infection, I agree with the assestment and treatment, antibiotics and breathing treatment, Dale Flowers MD. Dictated by KULDEEP Perdue for Dale Bro MD cc: KULDEEP Perdue MD MTDD
[2017-01-08] MEDS ORDERED: DUONEB (A & A) INH PRN (18:29)
--- NOTE | 2017-01-08 18:43 | Diag Imaging Result Doc PS360 ---
EXAM: CT THORAX/ABD/PELVIS W/O CONT INDICATION: PNA, pleural effusion, abd pain, sepsis TECHNIQUE: Dose reduction protocol was used. COMPARISON: CT chest dated 01/01/2017 CT chest abdomen and pelvis dated 10/02/2016 FINDINGS: CT CHEST: Emphysematous changes are again noted. There are bilateral loculated pleural effusions that are perhaps slightly larger than the previous study. The pneumothoraces have resolved. There is bilateral atelectasis similar to the previous study. There is new consolidation in the right upper lobe suggesting pneumonia. There is milder focal consolidation in the lingula that is also new. There is stable cardiomegaly. The mediastinum is unchanged. ABDOMEN/PELVIS: The liver and spleen are grossly unremarkable as imaged. There appears to been a prior cholecystectomy. There is motion artifact and pancreas and adrenal glands. They appear to be stable, however. There are extensive renal artery calcifications near the virgilio of the kidneys. There is uncomplicated diverticulosis coli. The GI tract is essentially unremarkable otherwise as imaged. The urinary bladder is largely nondistended and is grossly unremarkable, otherwise. There is extensive aortoiliac atherosclerotic calcification, stable. There is stable mild aneurysmal dilation of the aorta. There is diffuse anasarca that is similar to the previous study. IMPRESSION: 1.Prominent loculated effusions that appear to be slightly larger than the previous study with interval resolution of the pneumothoraces. 2.Development of new consolidation in the right upper lobe and, to a lesser degree, the lingula. 3.Diffuse soft tissue anasarca. 4.Essentially stable abdomen and pelvis. Electronically signed by Adin Franks 01/08/2017 6:41 PM
[2017-01-08] MEDS: ZYVOX 600 MG/D5W 600 MG/300 ML IVPB IV SCH (18:50)
[2017-01-08] MEDS: DUONEB (A & A) INH SCH ×2 (19:18→22:48)
[2017-01-08] MEDS: HUMALOG SUBQ SCH (21:29)
[2017-01-08] MEDS: ZOSYN 2.25 GM in NS 50 ML IV SCH (21:37)
[2017-01-09] MEDS: ZOSYN 2.25 GM in NS 50 ML IV SCH ×4 (02:50→20:49)
[2017-01-09] MEDS: DUONEB (A & A) INH SCH ×5 (04:59→22:51)
[2017-01-09] MEDS: ZYVOX 600 MG/D5W 600 MG/300 ML IVPB IV SCH ×2 (06:11→17:25)
[2017-01-09 06:39] LABS: HEMATOCRIT 35.1 % (37.0-47.0); MCH 31.5 PG (27-31); MCHC 31.3 g/dL (33-37); MCV 100.6 FL (81-99); MPV 10.3 FL (7.4-10.4); RBC 3.49 XMIL (4.2-5.4)
[2017-01-09] MEDS: HUMALOG SUBQ SCH ×4 (06:43→20:50)
[2017-01-09 07:01] LABS: CALCIUM 9.4 mg/dL (8.8-10.2); POTASSIUM 4.1 mmol/L (3.5-5.1)
[2017-01-09] MEDS ORDERED: HEPARIN IV PRN (08:36)
[2017-01-09] MEDS ORDERED: NS 2,000 ML MISC PRN (08:36)
[2017-01-09] MEDS ORDERED: TIGHT: 0.2 ML/HR MISC PRN (08:36)
[2017-01-09] MEDS: D50W 250 ML, AMINOSYN 15% 500 ML, LIPOSYN 20% 250 ML IV SCH ×3 (10:23)
--- NOTE | 2017-01-09 10:40 | CONSULTATION ---
DATE OF CONSULTATION: 01/08/2017 REASON FOR CONSULTATION: ESRD and assistance with medical management. HISTORY OF PRESENT ILLNESS: Ms Meade is a 67-year-old white female who is well known to me. She has been admitted multiple times recently. In fact, this makes her third admission in the month of December. All of her recent admissions have been related to shortness of breath. She has been losing weight progressively and has severe problems with shortness of breath and uses home oxygen. She currently resides in [facility]. She was most recently discharged from this facility on 01/02/2017 and was dialyzed at her outpatient dialysis center ([facility]) on Thursday. On , she was short of breath when the ambulance picked her up, and she had her transport diverted from dialysis to the emergency room. She was evaluated here in the emergency room on 01/08/2017. Her initial room air saturation was 81% and 96% on 3 L nasal cannula. Blood pressure, heart rate, and temperature were all okay, and she had a significant leukocytosis on presentation. Her initial evaluation included a CT of the chest, abdomen, and pelvis and, this again noted loculated effusions which was somewhat enlarged since her last study, and there was also consolidation in the right upper lobe as well as the lingula. These regions of presumed pneumonia have been treated appropriately with Zosyn and . She did not have any fever during this illness as far as she can remember. Her appetite has remained low, and her intake has been poor. No nausea or vomiting. PAST MEDICAL HISTORY: Coronary disease, ESRD, hypertension, diastolic heart failure, history of GI bleeding, protein calorie malnutrition, failure to thrive. HOME MEDICATION LIST: Reviewed as listed. ALLERGIES: Also reviewed as listed. FAMILY HISTORY: Noncontributory. SOCIAL HISTORY: She is currently residing at [facility]. No alcohol or tobacco use. REVIEW OF SYSTEMS: Obtained, otherwise, over 10 systems and noncontributory. PHYSICAL EXAMINATION: Vital Signs: Blood pressure 147/68, heart rate 116, respirations 22, afebrile. General: She is in no acute distress though she does have increased respiratory rate. Skin: Warm and dry, thin, with bruising. HEENT: Pupils are equal. Corneal arcus is present. Conjunctivae are pink. Oropharynx is dry. Neck: Supple. Neck vein distention is visible. Heart: Regular and tachycardic with a gallop and a murmur. Lungs: Have equal breath sounds with few scattered crackles, right greater than left. Abdomen: Soft, nontender. Bowel sounds are present. No organomegaly or masses. Extremities: Have 2+ edema especially around the hips and the elbows. No clubbing or cyanosis. Neurologic Exam: Nonfocal. LABORATORY DATA: Reviewed. IMPRESSION: 1. Shortness of breath. Multifactorial. Her CT of the chest demonstrates pneumonia. She also has ongoing pleural effusions and pulmonary edema is the less prominent part of her findings at this time. Because her symptoms are worse today, we will go ahead and dialyze her again in an attempt to eliminate pulmonary edema as a component of her shortness of breath, if possible. 2. End-stage renal disease. Plan as above. 3. Electrolytes/acid base/anemia, all in target. 4. Pneumonia. I did decrease the dosing frequency of her Zosyn but no other changes. 5. Malnutrition. We will provide intradialytic parenteral nutrition (IDPN). cc: Nash Felton MD
[2017-01-09] MEDS ORDERED: ZOFRAN IV ONE (10:41)
[2017-01-09] MEDS ORDERED: NS 2,000 ML ONE (10:41)
[2017-01-09] MEDS ORDERED: HEPARIN ONE (10:41)
[2017-01-09] MEDS ORDERED: ZOFRAN ONE (10:46)
--- NOTE | 2017-01-09 11:44 | PROGRESS NOTE ---
DATE: 01/09/2017 DIALYSIS PROGRESS NOTE: She is currently receiving her standard dialysis treatment. She has ongoing shortness of breath and exogenous fluid overload. Hypoxemic this morning. PLAN: Continue hemodialysis and we will continue intradialytic parenteral nutrition during her treatments. A goal of 4 L today at but this may be limited by her blood pressure. Currently tolerating well. cc: Nash Felton MD
--- NOTE | 2017-01-09 14:00 | PROGRESS NOTE ---
DATE: 01/09/2017 SUBJECTIVE: This patient is still having shortness of breath, heart rate is elevated as well as her pulse. She has been tolerating nasal cannula and her oxygen saturation has been around 90- 95%. She had dialysis today and she tolerated that well, she has been admitted because of right upper lung pneumonia and hypoxemia. She has been placed on antibiotics and it looks like this is working for her, so for now we will continue with the same management. OBJECTIVE: Vital Signs: Temperature 98.4 degrees, pulse 136, respiratory rate 24, blood pressure 144/109, oxygen saturation 90% on 4 L of nasal cannula. HEENT: Head normocephalic. No trauma. PERRLA. Neck: Supple. No JVD. No masses. Central trachea. Chest: Bilateral diffuse crackles. Decreased rhonchi at the level of the right upper lung and right lower lungs. Cardiovascular: RRR. Systolic murmur. Abdomen: Soft, nontender, nondistended. No hepatosplenomegaly. Extremities: No edema. No clubbing. No cyanosis. Decreased muscle mass. General: Cachectic patient in mild distress. LABORATORY: WBC 18.7, hemoglobin 11, hematocrit 35.1, platelets 329,000. Sodium 138, potassium 4.1, chloride 95, bicarbonate 28, BUN 31, creatinine 3.3, glucose 98, calcium 9.4, albumin 3. ASSESSMENT AND PLAN: 1. Chest pain with shortness of breath. She is not complaining of chest pain at this moment but she is still complaining of shortness of breath. Cardiac enzymes are elevated and they have been elevated before. Given her current status she is not a candidate for any kind of aggressive intervention. I talked to her about that and she seems to understand. Like I mentioned before, she is not complaining of chest pain. She is complaining of shortness of breath. This is likely secondary to her new pneumonia. 2. Right upper lung pneumonia. I will continue with Zosyn and linezolid. WBC is getting better and she feels a little bit better so I will continue with the same management for now. 3. End-stage renal disease. Continue with hemodialysis. 4. Elevated function test. This is chronic. Abdomen and pelvis CT scan without any acute abnormality. 5. Chronic pleural effusion. Aware. 6. Borderline diabetes mellitus. Continue with sliding scale insulin and pattern of blood sugar. 7. Deep vein thrombosis prophylaxis with heparin given her renal failure. cc: Dale Bro MD
[2017-01-09] MEDS: MORPHINE IV PRN ×2 (15:25→19:02)
[2017-01-10] MEDS: MORPHINE IV PRN ×6 (00:12→22:04)
[2017-01-10] MEDS: DUONEB (A & A) INH SCH ×6 (03:43→23:29)
[2017-01-10] MEDS: ZOSYN 2.25 GM in NS 50 ML IV SCH ×3 (05:10→20:23)
[2017-01-10] MEDS: ZYVOX 600 MG/D5W 600 MG/300 ML IVPB IV SCH ×2 (05:10→17:56)
[2017-01-10] MEDS: HUMALOG SUBQ SCH ×4 (06:34→20:24)
[2017-01-10 07:14] LABS: HEMATOCRIT 36.8 % (37.0-47.0); HEMOGLOBIN 11.7 g/dL (12.0-16.0); MCHC 31.8 g/dL (33-37); MCV 97.4 FL (81-99); MPV 10.2 FL (7.4-10.4); RBC 3.78 XMIL (4.2-5.4)
[2017-01-10 08:06] LABS: ALBUMIN 3.4 g/dL (3.5-5.0); CALCIUM 9.5 mg/dL (8.8-10.2); POTASSIUM 4.1 mmol/L (3.5-5.1)
[2017-01-10] MEDS ORDERED: NS 2,000 ML MISC PRN (09:02)
[2017-01-10] MEDS ORDERED: TIGHT: 0.2 ML/HR MISC PRN (09:02)
[2017-01-10] MEDS ORDERED: HEPARIN IV PRN (09:02)
[2017-01-10] MEDS ORDERED: HEPARIN ONE (09:46)
[2017-01-10] MEDS ORDERED: NS 2,000 ML ONE (09:46)
[2017-01-10] MEDS: D50W 250 ML, AMINOSYN 15% 500 ML, LIPOSYN 20% 250 ML IV SCH ×3 (11:21)
--- NOTE | 2017-01-10 11:55 | PROGRESS NOTE ---
DATE: 01/10/2017 SUBJECTIVE: She states she is feeling better. Less shortness of breath. OBJECTIVE: Vital Signs: Blood pressure 148/79, heart rate 77. Afebrile. General: In no acute distress. Skin: Warm and dry. Neck veins are not visible. Cardiovascular: Heart is regular. Lungs: Equal breath sounds. No crackles. Abdomen: Soft and nontender. Extremities: 1+ edema. No clubbing or cyanosis. LABORATORY DATA: Sodium 135, potassium 4.1, chloride 91, bicarbonate 25, BUN 54, creatinine 4.3, hemoglobin 11.7. IMPRESSION: 1. Volume overload. Chronic. She is having her third dialysis treatment in a row. She is symptomatically better and modestly better by exam. Continue treatment. 2. Pneumonia. White blood cell count remains elevated. She is receiving Zosyn and linezolid. 3. Electrolytes/acid base, in target. 4. Anemia, in target. cc: Nash Felton MD
--- NOTE | 2017-01-10 15:53 | PROGRESS NOTE ---
DATE: 01/10/2017 SUBJECTIVE: This patient feels better today. She is not complaining of chest pain but she is still complaining of mild shortness of breath. She is getting dialysis at this moment. OBJECTIVE: Vital Signs: Temperature 98.4 degrees, pulse 64, respiratory rate 18, blood pressure 131/63, oxygen saturation 99 on 5 L of nasal cannula. HEENT: Head normocephalic. No trauma. PERRLA. Neck: Supple. No JVD. No masses. Central trachea. Chest: Bilateral diffuse crackles, coarse breath sounds. She has rhonchi at the level of the right upper lung and right lower lung. Cardiovascular: RRR. Systolic murmur. Abdomen: Soft, nontender, nondistended. No hepatosplenomegaly. Extremities: No edema. No clubbing. No cyanosis. Decreased muscle mass. General: Cachectic patient in no acute distress today. LABORATORY: WBC 19.1, hemoglobin 11.7, hematocrit 36.8, platelets 324,000. Sodium 135, potassium 4.1, chloride 91, bicarbonate 25, BUN 54. Creatinine 4.3, glucose 93, calcium 9.5, phosphorous 5.5. Albumin 3.4. ASSESSMENT AND PLAN: 1. Chest pain and shortness of breath. She stopped complaining of chest pain but she is still complaining of mild shortness of breath. Cardiac enzymes are elevated and they have been elevated before. Given her current medical status she is not a candidate for any kind of aggressive intervention. I talked to her about this and she seems to understand. Like I mentioned before, she is not complaining of chest pain. She is complaining of mild shortness of breath and this is likely secondary to her new pneumonia. 2. Right upper lobe pneumonia. Continue with Zosyn and linezolid. WBC is about the same compared with yesterday. Actually yesterday was 18 and today is 19. 3. Elevated function tests. This is chronic. Abdomen and pelvis CT scan did not show any abnormality. 4. Chronic left pleural effusion. Aware. 5. Pre diabetes. Continue with sliding scale insulin and pattern blood sugar. 6. Deep vein thrombosis prophylaxis with heparin given her renal failure. 7. End-stage renal disease. Continue with hemodialysis. cc: Dale Bro MD
[2017-01-11] MEDS: MORPHINE IV PRN ×5 (01:55→23:53)
[2017-01-11] MEDS: DUONEB (A & A) INH SCH ×6 (02:57→23:11)
[2017-01-11] MEDS: ZOSYN 2.25 GM in NS 50 ML IV SCH ×3 (04:32→19:59)
[2017-01-11] MEDS: ZYVOX 600 MG/D5W 600 MG/300 ML IVPB IV SCH ×2 (05:00→17:39)
[2017-01-11] MEDS: HUMALOG SUBQ SCH ×4 (06:02→20:00)
[2017-01-11 07:07] LABS: HEMATOCRIT 35.9 % (37.0-47.0); HEMOGLOBIN 11.1 g/dL (12.0-16.0); MCH 31.5 PG (27-31); MCHC 30.9 g/dL (33-37); MPV 10.3 FL (7.4-10.4); RBC 3.52 XMIL (4.2-5.4)
[2017-01-11 07:20] LABS: CALCIUM 9.4 mg/dL (8.8-10.2); POTASSIUM 3.7 mmol/L (3.5-5.1)
--- NOTE | 2017-01-11 11:25 | PROGRESS NOTE ---
DATE: 01/11/2017 SUBJECTIVE: This patient feels a little bit better. Now, she has been coughing up a green phlegm. No fever no chills. She is tolerating p.o. and tolerating the dialysis as well. Probably, I will keep this patient 1 more day and hopefully tomorrow, we will send this patient back to her living place. OBJECTIVE: Vital Signs: Temperature 97.7 degrees, pulse 97, respiratory rate 16, blood pressure 148/70, oxygen saturation 95% on 4 L of nasal cannula. General: Chronically ill patient. Cachectic, in no acute distress. HEENT: Head normocephalic. No trauma. PERRLA. Neck: Supple. No JVD. No masses. Central trachea. Chest: Bilateral diffuse crackles. Coarse breath sounds. She has rhonchi at the right upper lung and right lower lung. Cardiovascular: RRR. Systolic murmur. Abdomen: Soft, nontender, nondistended. No hepatosplenomegaly. Extremities: No edema. No clubbing. No cyanosis. Decreased muscle mass. Neurological Examination: The patient is alert and oriented x3. No focal neurological deficits. Laboratory: WBC 14, hemoglobin 11.1, hematocrit 35.9, platelets 331,000. Sodium 139, potassium 3.7, chloride 95, bicarbonate 28, BUN 31, creatinine 3, glucose 105, calcium 9.4. Albumin 3. ASSESSMENT AND PLAN: 1. Chest pain and shortness of breath. She stopped complaining of chest pain but she is still complaining of mild shortness of breath. Cardiac enzymes are elevated but they have been elevated before. Given her current medical status, she is not a candidate for any kind of aggressive intervention. I talked to the patient about this and she seems to understand that. Her shortness of breath is likely secondary to her pneumonia. 2. Right upper lobe pneumonia. Continue with current medications. WBC is getting better, from 19 decreased to 14. We will continue breathing treatment and oxygen supplementation. 3. Elevated function tests. This is chronic and stable. CT of the abdomen and pelvis did not show any abnormality. 4. Chronic left pleural effusion. Aware. 5. Prediabetes. Continue with sliding scale insulin and pattern of blood sugar. 6. End-stage renal disease. Continue with hemodialysis. Nephrology department on board. 7. Deep vein thrombosis prophylaxis with heparin given her renal failure. 8. Protein calorie malnutrition. Continue with the same management. cc: Dale Bro MD
[2017-01-11 17:12] LABS: URINE SOURCE CLEAN CATCH
[2017-01-11 17:16] LABS: BILIRUBIN URINE NEGATIVE (NEGATIVE); BLOOD URINE SMALL (NEGATIVE); COLOR YELLOW; GLUCOSE URINE TRACE mg/dL (NEGATIVE); LEUKOCYTES URINE LARGE (NEGATIVE); NITRITE URINE NEGATIVE (NEGATIVE); PROTEIN URINE 300 mg/dL (NEGATIVE); SP GRAVITY URINE 1.019; TURBIDITY URINE HAZY (CLEAR); UROBILINOGEN URINE NORMAL (NORMAL)
[2017-01-11 17:18] LABS: URINE MICRO REVIEW NEEDED? YES
[2017-01-11 17:19] LABS: UR EPITHELIAL CELLS >10 /HPF (<10); URINE BACTERIA NEGATIVE /HPF; URINE CULTURE NEEDED? YES; URINE RBC <10 /HPF (<10); URINE WBC TNTC /HPF (<10)
[2017-01-11 17:34] LABS: URINE CASTS GRANULAR PRESENT
[2017-01-11 17:35] LABS: URINE CRYSTALS NONE SEEN; URINE SMALL ROUND CELLS RENAL PRESENT
[2017-01-12] MEDS: DUONEB (A & A) INH SCH ×6 (03:38→23:27)
[2017-01-12] MEDS: ZOSYN 2.25 GM in NS 50 ML IV SCH ×3 (04:38→20:35)
[2017-01-12] MEDS: ZYVOX 600 MG/D5W 600 MG/300 ML IVPB IV SCH ×2 (05:07→17:57)
[2017-01-12 06:29] LABS: MANUAL DIFF NEEDED? NO
[2017-01-12] MEDS: MORPHINE IV PRN ×4 (06:29→22:21)
[2017-01-12 06:38] LABS: EOS# 0.46 X1000 (0.0-0.7); EOS% 3.1 % (0.0-10.0); HEMATOCRIT 36.4 % (37.0-47.0); HEMOGLOBIN 11.5 g/dL (12.0-16.0); IMM GRAN# 0.03 X1000 (0.0-0.04); IMM GRAN% 0.2 % (0.0-0.5); LYMPH# 1.02 X1000 (1.2-3.4); LYMPH% 6.8 % (20.5-51.1); MCHC 31.6 g/dL (33-37); MCV 98.1 FL (81-99); MONO# 1.42 X1000 (0.11-0.59); MONO% 9.5 % (1.7-9.3); MPV 10.4 FL (7.4-10.4); NEUT% 79.4 % (42.2-75.2); PLT 318 X1000 (130-400); RBC 3.71 XMIL (4.2-5.4)
[2017-01-12] MEDS: HUMALOG SUBQ SCH ×4 (06:42→21:11)
[2017-01-12] MEDS ORDERED: ZOFRAN IV PRN (06:48)
[2017-01-12 06:56] LABS: CALCIUM 8.9 mg/dL (8.8-10.2)
[2017-01-12] MEDS ORDERED: NS 2,000 ML MISC PRN (07:47)
[2017-01-12] MEDS ORDERED: HEPARIN IV PRN (07:47)
[2017-01-12] MEDS ORDERED: TIGHT: 0.2 ML/HR MISC PRN (07:47)
[2017-01-12] MEDS ORDERED: NS 2,000 ML ONE (08:35)
[2017-01-12] MEDS ORDERED: HEPARIN ONE (08:36)
[2017-01-12] MEDS: D50W 250 ML, AMINOSYN 15% 500 ML, LIPOSYN 20% 250 ML IV SCH ×3 (10:10)
--- NOTE | 2017-01-12 14:56 | PROGRESS NOTE ---
DATE: 01/12/2017 SUBJECTIVE: Patient currently undergoing hemodialysis. She has no complaints this morning. OBJECTIVE: Vital signs: Temperature 98.2 degrees, pulse 118, respiratory rate 18, blood pressure 147/75. Intake 770 mL. Output not measured. General: Elderly female, resting in bed. Awake and alert. No acute distress. HEENT: Normocephalic, atraumatic. Conjunctivae pink. Oral mucosa moist. Neck: Supple. Trachea midline. Cardiovascular: Regular rate and rhythm. Pulmonary: Equal excursion. Clear bilaterally. Abdomen: Soft positive bowel sounds. : Not inspected. Extremities: Trace pretibial edema. No clubbing, cyanosis. Integumentary: Skin is warm and dry. There is a tunneled dialysis catheter. LABORATORY DATA: WBC of 14.9, hemoglobin 11.5, sodium 136, potassium 4. CO2 25. Creatinine 4. Calcium 8.9. ASSESSMENT AND PLAN: 1. Volume overload, ESRD management. Today is not her routine dialysis day, but we will go ahead and dialyze her today as we have had to dialyze her most days last week. She routinely dialyzes on a Thursday, , Thursday schedule. We understand that she may be discharged back to the care home or to home later on this week. We will plan to dialyze her tomorrow to get her back to her Thursday, , Thursday schedule and then if she does leave, she will need to adhere to those days and not skip any days regardless of the number of times she has dialyzed this week. 2. Pneumonia, on appropriately dosed antibiotics. 3. Electrolytes, acid-base balance anemia. Stable. Dictated by KULDEEP Kessler for Nash Felton MD Patient seen, data reviewed, discussed with Xi Dodd on 01/12/17. I agree with the above assessment and plan of care rg cc: Nash Felton MD [facility]
--- NOTE | 2017-01-12 16:40 | PROGRESS NOTE ---
DATE: 01/12/2017 SUBJECTIVE: This patient is feeling a little bit better, she is still complaining of mild shortness of breath. Today she had dialysis again. Family members at the bedside. I will continue with the same management for now and hopefully in 1 or 2 days I will be able to discharge this patient. OBJECTIVE: Vital Signs: Temperature 97.7 degrees, pulse 95, respiratory rate 18, blood pressure 149/57, oxygen saturation 100% on 5 L of nasal cannula. HEENT: Head normocephalic. No trauma. PERRLA. Neck: Supple. No JVD. No masses. Central trachea. Chest: Bilateral diffuse crackles, coarse breath sounds, rhonchi at the level of the right upper and right lower lung. Cardiovascular: RRR. Systolic murmur. Abdomen: Soft, nontender, nondistended. No hepatosplenomegaly. Extremities: No edema. No clubbing. No cyanosis. Decreased muscle mass. Neurological Examination: The patient is alert and oriented x3. No focal neurological deficits. LABORATORY: WBC 14.9, hemoglobin 11.5, hematocrit 36.4, platelets 318,000, sodium 136, potassium 4, chloride 91, bicarbonate 25, BUN 44, creatinine 4, glucose 97, calcium 8.9. ASSESSMENT AND PLAN: 1. Chest pain and shortness of breath. She is no longer complaining of chest pain but she is still complaining of shortness of breath. Cardiac enzymes are elevated but they have been elevated before. Given her current medical status she is not a candidate for any kind of aggressive intervention. I talked to her and to the family and they seem to understand. Her shortness of breath at this moment is likely secondary to her pneumonia. 2. Right upper lobe pneumonia. Continue with current medications. She is feeling a little bit better. Continue also with oxygen supplementation and pulmonary toilet. 3. Elevated function test. This is chronic and stable. CT of the abdomen and pelvis did not show any abnormality. 4. Chronic left pleural effusion, aware. 5. Prediabetes. Continue with sliding scale insulin and pattern blood sugar. 6. End-stage renal disease, on hemodialysis. Continue with hemodialysis as scheduled. 7. Deep vein thrombosis prophylaxis with heparin given her renal failure. 8. Protein calorie malnutrition. Continue with the same management. 9. Physical deconditioning. I will ask for Physical Therapy evaluation. cc: Dale Bro MD
[2017-01-13] MEDS: DUONEB (A & A) INH SCH ×6 (03:55→22:58)
[2017-01-13] MEDS: ZYVOX 600 MG/D5W 600 MG/300 ML IVPB IV SCH ×2 (05:35→18:57)
[2017-01-13] MEDS: ZOSYN 2.25 GM in NS 50 ML IV SCH ×3 (05:35→20:14)
[2017-01-13] MEDS: HUMALOG SUBQ SCH ×3 (06:42→18:50)
[2017-01-13 06:52] LABS: MANUAL DIFF NEEDED? NO
[2017-01-13 06:54] LABS: BASO% 0.7 % (0.0-0.8); EOS% 1.8 % (0.0-10.0); HEMATOCRIT 34.6 % (37.0-47.0); HEMOGLOBIN 10.8 g/dL (12.0-16.0); IMM GRAN# 0.02 X1000 (0.0-0.04); IMM GRAN% 0.2 % (0.0-0.5); LYMPH# 0.75 X1000 (1.2-3.4); LYMPH% 6.9 % (20.5-51.1); MCHC 31.2 g/dL (33-37); MCV 99.4 FL (81-99); MONO# 1.05 X1000 (0.11-0.59); MONO% 9.6 % (1.7-9.3); NEUT% 80.8 % (42.2-75.2); PLT 247 X1000 (130-400); RBC 3.48 XMIL (4.2-5.4)
[2017-01-13] MEDS ORDERED: HEPARIN IV PRN (06:56)
[2017-01-13] MEDS ORDERED: NS 2,000 ML MISC PRN (06:56)
[2017-01-13] MEDS ORDERED: TIGHT: 0.2 ML/HR MISC PRN (06:56)
[2017-01-13 07:38] LABS: POTASSIUM 3.1 mmol/L (3.5-5.1)
[2017-01-13] MEDS: MORPHINE IV PRN ×5 (07:53→20:13)
[2017-01-13] MEDS ORDERED: HEPARIN ONE ×2 (08:23→08:41)
[2017-01-13] MEDS ORDERED: NS 2,000 ML ONE (08:23)
--- NOTE | 2017-01-13 09:24 | PROGRESS NOTE ---
DATE: 01/13/2017 SUBJECTIVE: She states she is feeling well today. She anticipates discharge after dialysis today. Shortness of breath is minimal. OBJECTIVE: Vital Signs: Blood pressure 133/71, heart rate 132, respirations 24, afebrile. General: She is a thin, chronically ill woman in no distress. Skin: Warm and dry. Neck: Neck veins are not distended. Trachea is midline. Heart: Regular. Heart rate on my exam is in the 70s and regular. Lungs: Have equal breath sounds. Somewhat diminished in the bases. No crackles. Abdomen: Soft, nontender. Bowel sounds present. Extremities: Have no edema, clubbing, or cyanosis. Laboratory Data: Sodium 139, potassium 3.1, chloride 96, bicarbonate 29, BUN 23, creatinine 3.1. Hemoglobin 10.8. IMPRESSION: 1. End-stage kidney disease and volume overload. She appears euvolemic on exam today. Today is her normal dialysis day so we will treat her before discharge. Her UF rate will be dictated by her heart rate and blood pressure. 2. Electrolytes are in target. A 3 K bath today. 3. Acid-base in target. 4. Anemia is stable and in target. cc: Nash Felton MD
[2017-01-13] MEDS: D50W 250 ML, AMINOSYN 15% 500 ML, LIPOSYN 20% 250 ML IV SCH ×3 (09:54)
--- NOTE | 2017-01-13 14:41 | PROGRESS NOTE ---
DATE: 01/13/2017 SUBJECTIVE: This patient is feeling better but she is still complaining of mild shortness of breath, today she had dialysis. No family members at the bedside. I will continue with the same management: Hopefully tomorrow I will discharge this patient in the morning. OBJECTIVE: Vital Signs: Temperature 98.6 degrees, pulse 59, respiratory rate 20, blood pressure 127/64, oxygen saturation 100% on 4 L of nasal cannula. HEENT: Head normocephalic. No trauma. PERRLA. Neck: Supple. No JVD. No masses. Central trachea. Chest: Bilateral diffuse crackles and coarse breath sounds mostly at the bases. Rhonchi at the level of the right upper and right lower lung. Cardiovascular: RRR. Systolic murmur. Abdomen: Soft, nontender, nondistended. No hepatosplenomegaly. Extremities: No edema. No clubbing. No cyanosis. Decreased muscle mass. Neurological: The patient is alert, oriented x3. No focal neurological deficits. LABORATORY: WBC 10.9, hemoglobin 10.8, hematocrit. 34.6, platelets 247,000. Sodium 139, potassium 3.1, chloride 96, bicarbonate 23, BUN 23, creatinine 3.1, glucose 85, calcium 9. ASSESSMENT AND PLAN: 1. Chest pain and shortness of breath. She is not no longer having chest pain but she is still complaining of shortness of breath. Cardiac enzymes are elevated but they have been elevated before, given her current medical status she is not a candidate for any kind of aggressive intervention. I talked to her and I talked also to the family yesterday and they seem to understand the situation. Her shortness of breath at this moment is likely secondary to her pneumonia. 2. Right upper lobe pneumonia. Today I will continue with the same management. Tomorrow hopefully I will discharge this patient with p.o. medication. I will continue with home oxygen. 3. Elevated liver function tests. This is chronic and stable. CT of the abdomen and pelvis did not show any abnormality. 4. Chronic pleural effusion. Aware. 5. Pre diabetes. Continue with sliding scale insulin and pattern of blood sugar. 6. End-stage renal disease on hemodialysis. Continue hemodialysis as scheduled Thursday, and Thursday. 7. Deep vein thrombosis prophylaxis with heparin given her renal failure. 8. Protein calorie malnutrition. Continue with the same management. 9. Physical deconditioning. Continue physical therapy. cc: Dale Bro MD
[2017-01-14] MEDS: MORPHINE IV PRN ×2 (00:01→09:21)
[2017-01-14] MEDS: HUMALOG SUBQ SCH ×4 (03:15→17:00)
[2017-01-14] MEDS: DUONEB (A & A) INH SCH ×2 (03:34→08:33)
[2017-01-14] MEDS: ZOSYN 2.25 GM in NS 50 ML IV SCH ×2 (05:20→14:44)
[2017-01-14] MEDS: ZYVOX 600 MG/D5W 600 MG/300 ML IVPB IV SCH (05:20)
[2017-01-14 09:33] LABS: CALCIUM 9.5 mg/dL (8.8-10.2); POTASSIUM 3.8 mmol/L (3.5-5.1)
--- NOTE | 2017-01-14 11:13 | PROGRESS NOTE ---
DATE: 01/14/2017 SUBJECTIVE: She is about the same today. Her shortness of breath is at baseline. Eating her breakfast. No complaints. OBJECTIVE: Vital Signs: Blood pressure 151/60, heart rate 119, respiration 18, afebrile. General: She is in no acute distress. Skin: Warm and dry. HEENT: Conjunctivae are pink. Neck: Neck veins are not visible. Heart: Regular with S4. Lungs: Have equal breath sounds. No crackles. Abdomen: Soft, nontender. Bowel sounds present. Extremities: Have no edema, clubbing, or cyanosis. LABORATORY DATA: Sodium 136, potassium 3.8, chloride 92, bicarbonate 29, BUN 25, creatinine 3.2. Hemoglobin 10.8. IMPRESSION: Chronic kidney disease. Her next scheduled dialysis is tomorrow. Volume status appears improved. Okay for discharge from my perspective. cc: Nash Felton MD
--- NOTE | 2017-01-14 13:38 | DISCHARGE SUMMARY ---
ADMISSION DATE: 01/08/2017 DISCHARGE DATE: 01/14/2017 CONSULTATION: Dr. Nash Felton with Nephrology. PERTINENT PROCEDURES: Chest, abdomen, and pelvis CT showed prominent loculated effusions that appear to be slightly larger than the previous study with interval resolution of pneumothoraces, development of new consolidations in the right upper lobe to a lesser degree the lingula. Diffuse soft-tissue eschar. Essentially stable abdomen and pelvis. DISCHARGE DIAGNOSES: 1. End-stage renal disease with fluid volume overload, on hemodialysis on Thursday, , Thursday. Stable for [facility] back to the [facility]. 2. Chest pain and shortness of breath. Chest pain has resolved. Cardiac enzymes are elevated, though she is not a candidate for any aggressive intervention. Patient and family are aware. Shortness of breath secondary to her pneumonia. This is all improved. 3. Right upper lobe pneumonia. Continue with p.o. antibiotics and aggressive pulmonary toilet and supplemental O2. 4. Elevated liver function tests, chronic and stable. 5. Chronic pleural effusions, aware. 6. Pre-diabetes, aware. 7. End-stage renal disease on hemodialysis. Continue with the regular schedule Thursday, , and Thursday. 8. Protein calorie malnutrition. Continue with supplementation. 9. Physical deconditioning. Continue with physical therapy. 10. Rehab patient. The patient is DNR level 1 while at our facility. HOSPITAL COURSE: Ms. Meade is a 67-year-old, female, well known to our service, recently discharged on 12/23/2016 for acute hypoxemic respiratory failure, chest pain, shortness of breath, [id number] diastolic heart failure, right-sided pleural effusion. Return from [facility] with acute onset of chest pain and shortness of breath that began the night prior to her admission. She reports the pain work her up out of her sleep. She had been short of breath ever since. She described the pain as mid sternal, constant, and pressure-type sensation as well as mild nausea but no vomiting. In the ED, a chest x-ray showed continued bilateral pleural effusions but slightly improved from last week. There was worsening of the right-sided pleural effusion. When she got to the ER, she went to dialysis. She did complete dialysis. She was noted to have a white count of 23 with a questionable evidence of pneumonia on her x-ray. She has elevated transaminitis and an alk phosphate. Blood cultures were obtained. She was started on antibiotics and sent for a CT of her chest, abdomen, and pelvis that showed prominent loculated effusions slightly larger than previous study with interval resolution of pneumothoraces, development of new consolidation in the right upper lobe to a lesser degree. Diffuse soft tissue scar, an essentially stable abdomen and pelvis. Her EKG did not show any acute ST-segment deviations, so she was admitted. Trended her cardiac enzymes. She was started on IV antibiotics with Zosyn and Zyvox. Consulted Dr. Felton to resume her regular dialysis throughout her hospital stay. She did have elevated troponins again and, given her current medical status, she is not a candidate for any type of aggressive intervention. She will be on medication only. Dr. Rice has talked to the patient and the family about this. Her white count has improved. Her breathing is improved. Her chest pain has resolved, and she has been dialyzed until her volume status has appeared to improve. She is appropriate to discharge back to the [facility] today. VITAL SIGNS AT TIME OF DISCHARGE: Temperature is 98.2 degrees, heart rate 92, respirations 18, blood pressure 117/62, O2 is 99% on 4 L nasal cannula. DISCHARGE DIET: Renal. DISCHARGE MEDICATIONS: As per Dr. Rice. Please see MAR. FOLLOWUP: Ms. Meade is being discharged back to [facility] with supplemental O2, to return to the ED for any worsening of symptoms. The patient was a DNR LEVEL 1 while in our facility. DISCHARGE TIME: 30 minutes. I personally evaluated this patient face to face, images, vitals signs and lab work were reviewed, this patient has multiple comorbidities with multiples admissions, she is stable right now, I discussed the case with the family and they know about her poor prognosis, I agree with the assessment and plan for this patient, and can be discharged today, Dale Flowers MD Dictated by KULDEEP Eden for Dale Bro MD cc: MD Karie Conner MD [facility]
[2017-01-14 16:27] VITALS: BP 114/56
[2017-01-14] MEDS ORDERED: KEFLEX PO SCH (21:00)
== END 2017-01-14 16:59 ==
LOC: SUPCPDRO → ED 11:30 → 3N 16:57
PROVIDERS: ATTEND Internal Medicine